=== PATIENT | female | born 1960 | race Caucasian/White ===

== ENCOUNTER 2022-02-20 14:59 | Outpatient (CLI) | payer OTHER, SELFPAY ==
--- NOTE | 2022-02-20 15:00 | CRLHL7_ITS ---
For Patients: As a result of the Cures Act, medical imaging exams and procedure reports are released immediately into your electronic medical record. You may view this report before your referring provider. If you have questions, please contact your health care provider. BILATERAL CAROTID ULTRASOUND 02/20/2022 CLINICAL HISTORY: Hyperlipidemia, hypertension, smoking. TECHNIQUE: The carotid circulations and the vertebral arteries in the neck were examined with gomez-scale ultrasound, color-flow and Doppler spectral analysis. Degrees of stenosis were determined using SRU 2002 Consensus Panel Criteria. COMPARISON: Carotid ultrasound 11/01/2020. FINDINGS: Right carotid: Atherosclerotic plaque in the distal common carotid artery and origins of the internal and external carotid arteries and carotid bulb. Elevated peak systolic velocity in the proximal right ICA measuring 232.4 cm/second. Antegrade flow in the right vertebral artery. The right ICA/CCA ratio is 1.6. Mild tardus parvus wave waveform in the proximal ICA with otherwise normal arterial waveforms. Extensive calcified plaque at the origin of the left internal carotid artery with calcification in the carotid bulb also. Peak systolic velocity in the left mid internal carotid artery is 143.5 cm/second. The ICA/CCA ratio is 1.1. Antegrade flow in the vertebral artery. Normal waveforms. PEAK SYSTOLIC VELOCITY RIGHT: Distal CCA: 143.8 Proximal ICA: 232.4 Mid-ICA: 186.5 Distal ICA: 98.4 ICA/CCA Ratio: 1.6 Vertebral artery: 72.3, antegrade LEFT: RIGHT: Distal CCA: 135.6 Proximal ICA: 123.8 Mid-ICA: 143.5 Distal ICA: 72.4 ICA/CCA Ratio: 1.1 Vertebral artery: 26.3, antegrade IMPRESSION: 1. Right carotid artery with diffuse calcified plaque. The degree of stenosis in the right internal carotid artery is greater than 70 percent. 2. Left carotid artery with extensive plaque at the origin of the left internal carotid artery without flow-limiting stenosis. The degree of stenosis in the left internal carotid artery is approximately between 50-69 percent. Lukas Miller M.D. Diagnostic/Musculoskeletal Radiologist [email or web address] Transcribed: 9:37 am DW/Dictated by: Lukas Miller MD @ 02/23/2022 8:40:00 AM (Electronically Signed)
== END 2022-02-20 15:00 | disposition home or self-care (01) ==
PROVIDERS: PCP Internal Medicine; Visit Provider Surgery Vascular Surgery
DX: I65.23 Occlusion and stenosis of bilateral carotid arteries (principal)
CPT/HCPCS: 93880

== ENCOUNTER 2022-03-11 09:38 | Outpatient (CLI) | payer OTHER, SELFPAY ==
--- NOTE | 2022-03-11 10:00 | CRLHL7_ITS ---
For Patients: As a result of the Century Cures Act, medical imaging exams and procedure reports are released immediately into your electronic medical record. You may view this report before your referring provider. If you have questions, please contact your health care provider. Indication: FOLLOW UP PULMONARY NODULE Technique: Noncontrast CT chest. Please note that all CT scans at this facility use dose modulation, iterative reconstruction, and/or weight-based dosing when appropriate to reduce radiation dose to as low as reasonably achievable. Comparison: Chest x-ray 01/30/2022. CT 09/14/2016. Findings: Stable calcified granuloma posterior segment right upper lobe measuring 1.1 cm. Calcified right hilar lymph nodes and calcified splenic granulomas related to chronic granulomatous disease. Postop changes cholecystectomy. Dense vascular calcifications. No suspicious lymph nodes in the mediastinum, marv or axilla. No fracture. Stable mild calcification within the left thyroid gland. COPD/emphysema. Cluster of nodules located within the inferior aspect of the right upper lobe with several nodules measuring up to 4 millimeters. This area is new compared to the prior study. Impression: Stable calcified nodule right upper lobe. Interval development of a cluster of nodules within the right lower lobe at the inferior aspect. The largest nodule measures [address]imeters[address] Follow-up CT in 6-12 months recommended. Please note that all CT scans at this facility use dose modulation, iterative reconstruction, and/or weight-based dosing when appropriate to reduce radiation dose to as low as reasonably achievable. Dictated by Isai Martell MD @ 03/11/2022 11:36:02 AM (Electronically Signed)
== END 2022-03-11 09:39 | disposition home or self-care (01) ==
LOC: CT 09:38
PROVIDERS: PCP Internal Medicine; Visit Provider Internal Medicine
DX: R91.1 Solitary pulmonary nodule (principal); R91.8 Other nonspecific abnormal finding of lung field
CPT/HCPCS: 71250

== ENCOUNTER 2022-07-03 12:20 | Outpatient (CLI) | payer OTHER, SELFPAY ==
[2022-07-03 22:08] LABS: Albumin* 4.6 g/dL (3.3-5.0); Chloride* 105 mmol/L (96-114)
[2022-07-03 22:09] LABS: Potassium* 3.9 mmol/L (3.6-5.1); Sodium* 141 mmol/L (135-149)
[2022-07-03 22:11] LABS: Carbon Dioxide* 30 mmol/L (20-32); Cholesterol* 160 mg/dL (90-199)
[2022-07-03 22:12] LABS: Alanine Aminotransferase* 15 U/L (4-35); Alkaline Phosphatase* 75 U/L (40-150); Aspartate Amino Transferase* 22 U/L (12-35); Bilirubin Total* 0.5 mg/dL (0.1-1.5); Blood Urea Nitrogen* 16 mg/dL (7-30); Calcium* 9.5 mg/dL (8.4-10.6); Creatinine* 0.6 mg/dL (0.5-1.5); Estimated Glomerular Filt Rate 100 ml/min; Glucose* 121 mg/dL (60-115); Total Protein* 7.2 g/dL (6.0-8.3); Triglycerides* 130 mg/dL (40-149)
[2022-07-03 22:13] LABS: HDL Cholesterol* 64 mg/dL (>=50); LDL Cholesterol Calculated 70 mg/dL (<100)
[2022-07-03 22:48] LABS: HIV 1/2/P24 Combo Screen* Negative (Negative)
[2022-07-03 22:55] LABS: Hepatitis C Virus Antibody* Negative (Negative)
[2022-07-05 18:33] LABS: Rapid Plasma Reagin (RPR) Non Reactive (Non Reactive)
== END 2022-07-03 12:21 | disposition home or self-care (01) ==
PROVIDERS: PCP Family Medicine; Visit Provider Family Medicine
DX: Z00.00 Encounter for general adult medical examination without abnormal findings (principal); I10 Essential (primary) hypertension; E78.5 Hyperlipidemia, unspecified; R53.83 Other fatigue; N95.1 Menopausal and female climacteric states; Z11.59 Encounter for screening for other viral diseases; Z11.3 Encounter for screening for infections with a predominantly sexual mode of transmission
CPT/HCPCS: 80053; 80061; 84443; 86592; 86703; 86803

== ENCOUNTER 2022-08-05 07:04 | Outpatient (CLI) | payer OTHER, SELFPAY ==
--- NOTE | 2022-08-05 07:15 | CRLHL7_ITS ---
For Patients: As a result of the Century Cures Act, medical imaging exams and procedure reports are released immediately into your electronic medical record. You may view this report before your referring provider. If you have questions, please contact your health care provider. Indication: Lumbar spine pain. Technique: Multiplanar, multisequence MRI of the lumbar spine was performed without intravenous contrast. Comparison: Lumbar spine radiographs 07/02/2022. Lumbar spine MRI 10/10/2018. Findings: There are 5 lumbar type vertebral segments identified. The vertebral body heights are maintained without evidence of fracture. There is no discrete T1 hypointense marrow infiltrating process. The conus medullaris terminates at L1, normal. Cauda equina appears unremarkable. T12-L1: No spinal canal or neural foraminal stenosis. L1-2: No spinal canal or neural foraminal stenosis. L2-3: Mild disc height loss and desiccation. Disc bulge with minimal spinal canal narrowing. Mild neural foraminal narrowing secondary to disc bulge and facet hypertrophy. [id number] facet arthropathy. Stable. L3-4: Mild disc height loss and desiccation. Disc bulge coupled with facet hypertrophy resulting in mild spinal canal narrowing. Mild to moderate right and mild left neural foraminal narrowing. Moderate facet arthropathy. Slightly progressed. L4-5: Mild disc height loss and desiccation. Disc bulge coupled with ligamentum flavum thickening and facet hypertrophy resulting in mild spinal canal narrowing. Moderate to severe neural foraminal narrowing secondary to disc bulge and facet hypertrophy. Potential impingement of the exiting L4 nerves. Severe facet arthropathy. Stable. L5-S1: Mild disc desiccation. Disc bulge with minimal spinal canal narrowing. There is a new superimposed left foraminal disc protrusion which potentially impinges the exiting left L5 nerve. Mild right neural foraminal narrowing. Mild facet arthropathy. The visualized sacroiliac joints appear patent. Scattered renal cysts. Impression: 1. At L5-S1, new left foraminal disc protrusion potentially impinging the exiting left L5 nerve. 2. At L4-5, stable mild spinal canal with moderate to severe neural foraminal narrowing and potential impingement of the exiting L4 nerves. 3. At L3-4, slightly progressed degenerative change with mild spinal canal, mild to moderate right and mild left neural foraminal narrowing. 4. Milder spondylosis at the remaining lumbar levels. Dictated by Virgilio Yi MD @ 08/05/2022 2:54:09 PM (Electronically Signed)
--- NOTE | 2022-08-05 08:30 | CRLHL7_ITS ---
For Patients: As a result of the Century Cures Act, medical imaging exams and procedure reports are released immediately into your electronic medical record. You may view this report before your referring provider. If you have questions, please contact your health care provider. Indication: PAIN OF LUMBAR SPINE Technique: Noncontrast CT chest Please note that all CT scans at this facility use dose modulation, iterative reconstruction, and/or weight-based dosing when appropriate to reduce radiation dose to as low as reasonably achievable. Comparison: 03/11/2022 Findings: Incidental calcification within the left thyroid lobe noted. Atherosclerotic disease. No mediastinal or hilar adenopathy. Calcifications in the coronary arteries. No axillary adenopathy. Calcified right hilar lymph nodes. Gallbladder absent. Calcified splenic granulomas. No hiatal hernia. No pleural effusion. Calcified nodule within the right upper lobe posteriorly is unchanged. COPD/emphysema. Decreased conspicuity of reticulonodular densities within the periphery of the right lung laterally. Left lung is relatively clear. No fracture. Impression: Decreased conspicuity of the reticulonodular densities within the periphery of the right lung laterally representing residual of prior inflammatory process. COPD/emphysema. Old granulomatous disease. No adenopathy. Yearly screening CT chest exams suggested. Please note that all CT scans at this facility use dose modulation, iterative reconstruction, and/or weight-based dosing when appropriate to reduce radiation dose to as low as reasonably achievable. Dictated by Isai Martell MD @ 08/06/2022 10:50:02 AM (Electronically Signed)
== END 2022-08-05 07:05 | disposition home or self-care (01) ==
PROVIDERS: PCP Family Medicine; Visit Provider Orthopaedic Surgery Sports Medicine
DX: M54.50 Low back pain, unspecified (principal); M51.27 Other intervertebral disc displacement, lumbosacral region; M51.26 Other intervertebral disc displacement, lumbar region; M43.06 Spondylolysis, lumbar region
CPT/HCPCS: 71250; 72148

== ENCOUNTER 2022-10-16 08:43 | Outpatient (CLI) | payer OTHER, SELFPAY ==
--- NOTE | 2022-10-16 09:00 | CRLHL7_ITS ---
For Patients: As a result of the Century Cures Act, medical imaging exams and procedure reports are released immediately into your electronic medical record. You may view this report before your referring provider. If you have questions, please contact your health care provider. INDICATION: Lumbar fusion. COMPARISON: 08/05/2022. TECHNIQUE: Noncontrast CT lumbar spine. FINDINGS: Normal alignment. No fractures. No vertebral body loss of height. No spondylolisthesis. Postoperative changes of diskectomy interbody fusion L4-5 and L5-S1. Posterior richa transpedicular screw fixation L4-S1. Hardware appears well seated. T12-L1: Small right paracentral disc protrusion a disc osteophyte complex. No spinal canal or neural foraminal narrowing. L1-2: No spinal canal neural foraminal narrowing. L2-3: No narrowing of spinal canal. No neural foraminal narrowing. L3-4: Posterior disc bulge. Mild narrowing of spinal canal. Facet arthropathy results in mild to moderate narrowing of bilateral foramina. Mild facet arthropathy. L4-5: Postoperative changes. Spinal canal is decompressed by laminectomy. Allowing for artifact, there is mild narrowing of bilateral foramina. L5-S1: Postoperative changes. Spinal canal is decompressed by laminectomy. No impingement of the traversing S1 nerve roots. No neural foraminal narrowing. Degenerative changes of visualized SI joints. Scattered vascular calcifications. IMPRESSION: 1. Normal alignment. No fractures. 2. Interval postop changes L4-5 and L5-S1. Posterior fusion hardware L4-S1. Hardware appears well seated. 3. At L3-4, mild narrowing of the spinal canal. Mild to moderate narrowing of the bilateral foramina 4. At L4-5, mild narrowing of the bilateral neural foramina 5. Lumbar spondylosis Please note that all CT scans at this facility use dose modulation, iterative reconstruction, and/or weight-based dosing when appropriate to reduce radiation dose to as low as reasonably achievable. Dictated by Dandy Almodovar MD @ 10/16/2022 12:50:53 PM (Electronically Signed)
== END 2022-10-16 08:44 | disposition home or self-care (01) ==
PROVIDERS: PCP Family Medicine; Visit Provider Specialist
DX: Z98.1 Arthrodesis status (principal); M47.896 Other spondylosis, lumbar region; M51.26 Other intervertebral disc displacement, lumbar region
CPT/HCPCS: 72131

== ENCOUNTER 2023-01-29 09:41 | Outpatient (CLI) | payer MEDICARE, BC, SELFPAY ==
--- OUTSIDE RECORDS SUMMARY | 2023-01-29 09:50 | XMS_ITS | Continuity of Care Document ---
Author Name Unknown Organization [facility] Address [address] [place] [address] Phone Care Team Providers Care Chemistry Specialist Name Role Phone Shari MCCLELLAND, Lisa Unavailable Unavailable Allergies, Adverse Reactions, Alerts Substance Reaction Status Criticality No Known Allergies Active No Inform ation Medications Medication Instructions Dosage Effective Dates (start - stop) Status Comments gabapentin 300 mg capsule take 1 capsule by oral route 4 times every day 300 MG - Active hydrocodone 5 mg-acetaminophen 325 mg tablet take 1 Tablet by ORAL route every 10 hours as needed for pain 1 Tablet - Active hydrocodone 5 mg-acetaminophen 325 mg tablet take 1 Tablet by ORAL route every 8 hours as needed for pain - Active hydrocodone 5 mg-acetaminophen 325 mg tablet take 1 Tablet by ORAL route every 12 hours as needed for pain 1 Tablet - Active Max 2 tablets per day for one week supply. Valium 5 mg tablet take 1 tablet by ORAL route 30 minutes prior to the injection - Active oxycodone 5 mg tablet take 1Tablet by ORAL route every daily as needed for pain. No further refills - Active oxycodone 5 mg tablet take 1 Tablet by ORAL route every 8 hours as needed for pain for G89.18. - Active gabapentin 300 mg capsule take 1 capsule by oral route 3 times every day 300 MG - Active methocarbamol 500 mg tablet take 1 Tablet by ORAL route every 6 hours PRN muscle spasms - Active hydrocodone 5 mg-acetaminophen 325 mg tablet take 1 Tablet by ORAL route every 6 hours as needed for pain for G89.18 - Active oxycodone 5 mg tablet take 1 - 2 tabs by mouth every 4-6 hours as needed for post op (G89.18) - Active Written on behalf of Dr. Lisa Mccarthy ALIVE WOM[employer]'S [employer]ERGY (unknown strength) Not Available - Active ESTROGEN-METHYLTEST OSTERONE (unknown strength) Not Available - Active IBUPROFEN (unknown strength) Not Available - Active Procedures Procedure Date Postop Followup Visit X-Ray Exam Lower Spine 2-3 Views 2022 TLIF - Includes PSF at the same level - PA TLIF - Additional Level(s) Includes PSF at the same level - PA RICKETTS FACETC/FRMT ARTHRD LUM 1 RICKETTS FACTC/FRMT ARTHRD LUM EA Posterior Instrumentation, 3-6 Segments - PA PEEK/ Cage/ Implant, For Interbody Fusio n - PA Autograft, From Same Incision Pa Assist TLIF - Includes PSF at the same level Ma TLIF - Additional Level(s) Includes PSF at the same level RICKETTS FACETC/FRMT ARTHRD LUM 1 RICKETTS FACTC/FRMT ARTHRD LUM EA Posterior Instrumentation, 3-6 Segments PEEK/ Cage/ Implant, For Interbody Fusio n Allograft, Morcelized, and/or BMP Autograft, From Same Incision Office/Outpatient Visit,New, Mod 2022 Office/Outpatient Visit,Est, Mod 2015 Postop Followup Visit Postop Followup Visit Remove Lumbar Spine Lamina, 1 Seg Remove Added Spine Lamina, 1 Seg 2015 Pa Assist Remove Lumbar Spine Lamina, 1 Seg Pa Assist Remove Added Spine Lamina, 1 S eg Office/Outpatient Visit,New, Mod 2015 X-Ray Exam Of Lower Spine, Bending Advance Directives Directive Yes / No Effective Date File Name No Information Encounters Encounter Description Practice Location Reason(s) For Visit Diagnoses Date Provider Providers Copied on Encounter [facility], [address], [place], [place], [id number] , [place] tel:[phone] [facility] No Information 3 Mehbod Amir. [facility], [address] [place] [address], [place], [place], [address] , [place]. tel: [phone] [facility], [address], [place], [place], [address] , [place] tel:[phone] [facility] No Information 3 Mehbod Amir. [facility], [address] [place] [address], [place], [address] , [place]. tel: [phone] [facility], [address], [place], [place], [address] , [place] tel:[phone] [facility] No Information 3 Mehbod Amir. [facility], [address] [place] [address], [place], [place], [id number] , [place]. tel: [phone] [facility], [address], [place], [place], [address] , [place] tel:[phone] [facility] No Information 3 Eckroth Jorge. [address] [place] [address], [place], [address] , [place]. tel: [phone] [facility], [address], [place], [address] , [place] tel: [phone] [facility] No Information 3 Mehbod Amir. [facility], [address] [place] [address], [place], [address] , [place]. tel: [phone] [facility], [address], [place], [address] , [place] tel:[phone] [facility] No Information Sep- 3 Mehbod Amir. [facility], [address] [place] [address] [address], [place], [place], [address] , [place]. tel: [phone] Referring Provider: Rudi Mcneil, [facility] & [address], [place], [address]. tel:[phone] [facility], [address], [place], [place], [address] , [place] tel:[phone] [facility] No Information Sep-06 30- 3 Mehbod Amir. [facility], [address] [place] [address] [address], [place], [place], [address] , [place]. tel: [phone] [facility], [address], [place], [place], [address] , [place] tel:[phone] [facility] No Information Sep-0 3 Mehbod Amir. [facility], [address] [place] [address] [address], [place], [place], [address] , [place]. tel: [phone] [facility], [address], [place], [place], [address] , [place] tel: [phone] [facility] No Information Aug-3 - 3 Mehbod Amir. [facility], [address] [place] [address] [address], [place], [place], [address] , [place]. tel: [phone] [facility], [address], [place], [place], [address] , [place] tel: [phone] [facility] No Information Aug-2 3 Mehbod Amir. [facility], [address] [place] [address] [address], [place], [place], [address] , [place]. tel: [phone] [facility], [address], [place], [place], [address] , [place] tel: [phone] [facility] No Information Mar-2 2- 3 Mehbod Amir. [facility], [address], [place], [place], [address] , [place]. tel: [phone] Referring Provider: Primary Care Doctor No. [facility], [address], [place], [place], [address] , [place] tel: [phone] [facility] No Information 3 Brown Patel. [address], [place], [place], [address] , [place]. tel: [phone] Referring Provider: Rudi Mcneil, [facility] & [address], [address]. tel:[phone] [facility], [address], [place], [place], [address] , [place] tel: [phone] [facility] No Information 3 Mehbod Amir. [facility] [place], [address], [place], [place], [address] , [place]. tel: [phone] Referring Provider: Rudi Mcneil, [facility] & [address], [address]. tel:[phone] Office/Outpat ient Visit,New, Mod [facility], [address], [place], [place], [address] , [place] tel: [phone] [facility] Spinal stenosis, lumbar region with neurogenic claudication 3 Mehbod Amir. [facility], [address], [place], [place], [address] , [place]. tel: [phone] Referring Provider: Rudi Mcneil, [facility] & [address], [address]. [phone] Office/Outpat ient Visit,Est, Mod [facility], [address], [place], [place], [address] , [place] tel: [phone] [facility] Spinal stenosis, lumbar region 201 6 Mehbod Amir. [facility], [address], [place], [place], [address] , [place]. tel: [phone] Referring Provider: Lisa Mccartyh, [facility] [address], [place], [address]. tel:[phone] [facility], [address], [facility] [place], [address] , [place] tel: [phone] [facility] Spinal stenosis, lumbar region 0-201 6 Eckroth Jorge. [address] [place] [address] [address], [place], [place], [address] , [place]. tel: [phone] Referring Provider: iLsa Mccarthy, [facility] [address], [place], [address]. tel:[phone] [facility], [address], [place], [place], [address] , [place] tel: [phone] [facility] Other intervertebral disc degeneration, thoracolumbar regionSpinal stenosis, lumbar region 2 6 Mehbod Amir. [facility] [place], [address] [place] [address], [place], [place], [address] , [place]. tel: [phone] Referring Provider: Lisa Mccarthy, [facility] [place] [address], [place], [address]. tel:[phone] [facility], [address], [facility] [place], [address] , [place] tel: [phone] [facility] No Information 6 Mehbod Amir. [facility] [place], [address] [place] [address] [address], [place], [place], [address] , [place]. tel: [phone] Referring Provider: Lisa Mccarthy, [facility] [address], [place], [address]. tel:[phone] Office/Outpat ient Visit,New, Mod [facility], [address], [place], [place], [address] , [place] tel:[phone] [facility] Other intervertebral disc degeneration, thoracolumbar regionSpinal stenosis, lumbar region 6 Shari Gonzalez. [facility], [address], [place], [place], [address] , [place]. tel:[phone] Referring Provider: Jewel Gerard, [address], [address]. tel:[phone] Family History Family Member Type Diagnosis Age At Onset No Information Payers Payer name Insurance type Covered republican ID Authoriza tion(s) No Information Social History Type Description Quantity Date Captured Comments Sex Female Smoking Status No Information Chief Complaint And Reason For Visit No Information Reason For Referral Reason For Referral No Information Plan Of Treatment Date Type Action Status Appointment Rossy Salmon BOOKED Appointment Rossy Salmon BOOKED Appointment Rossy Salmon BOOKED Appointment Rossy Salmon BOOKED Future Order: Radiology Order F/ E Lumbar (F/ELumb), Ordered on: Ordered History Of Present Illness Encounter Date Complaint History Of Prese nt Illness No Information Functional Status Date Functional Assessmen t No Information Instructions Date Instruction Additional Infor mation Instructed to return to General Practitioner timeframe: 1 Month. Related to Unspecified Essential Hypertension Blood Pressure Management Relate d to Unspecified Essential Hypertension Weight management: I nstructed to return to General Practitioner timeframe: 1 Month. Related to Overweight Weight Management Education Rela gabi to Overweight Assessments Type Assessment Date No Information Patient Care Teams Name Effective Dates (start - stop) Status Members No Information
--- NOTE | 2023-01-29 10:00 | CRLHL7_ITS ---
For Patients: As a result of the Cures Act, medical imaging exams and procedure reports are released immediately into your electronic medical record. You may view this report before your referring provider. If you have questions, please contact your health care provider. Indication: assess healing of spine fusion surgery Technique: Lumbar spine 2 view Comparison: 07/02/2022 IMPRESSION: Posterior and interbody fusion L4-S1. Hardware intact. Calcifications in the aorta. No fracture Dictated by Isai Martell MD @ 01/29/2023 10:42:27 AM (Electronically Signed)
== END 2023-01-29 09:42 | disposition home or self-care (01) ==
PROVIDERS: PCP Family Medicine; Visit Provider Specialist
DX: M43.20 Fusion of spine, site unspecified (principal)
CPT/HCPCS: 72100

== ENCOUNTER 2023-02-02 08:53 | Outpatient (CLI) | payer MEDICARE, BC, SELFPAY ==
--- OUTSIDE RECORDS SUMMARY | 2023-02-03 14:57 | XMS_ITS | Continuity of Care Document ---
Author Name Unknown Organization [facility] Address [address] [place] [address] Phone Care Team Providers Care Electronics Research Engineer Name Role Phone Shari MCCLELLAND, Lisa Unavailable [...] Not Available - Active Procedures Procedure Date OFFICE/OUTPATIENT VISIT EST Phone HOLD Postop Followup Visit X-Ray Exam Lower Spine [...] Added Spine Lamina, 1 S eg Office/Outpatient Visit,[facility] 2015 X-Ray Exam Of Lower Spine, Bending Advance Directives Directive Yes / No Effective Date File Name No Information Encounters Encounter Description Practice Location Reason(s) For Visit Diagnoses Date Provider Providers Copied on Encounter [facility], [address], [place], [address] , [place] tel: [phone] [facility] [place] No Information 3 Mehbod Amir. [facility], [address] [place] [address] [address], [place], [place], [address] , [place]. tel: [phone] OFFICE/OUTPAT IENT VISIT EST Phone [facility], [address], [place], [address] , [place] tel: [facility] No Information 3 Mehbod Amir. [facility], [address] [place] [address] [address], [place], [place], [address] , [place]. tel: [phone] Referring Provider: Rudi Mcneil, [facility] & [address], [place], [address]. tel:[phone] [facility], [address], [place], [address] , [place] tel: [phone] [facility] [place] No Information 3 Mehbod Amir. [facility], [address] [place] [address] [address], [place], [address] , [place]. tel: [phone] [facility], [address], [place], [address] , [place] tel: [phone] [facility] [employer] [facility] [place] No Information 3 Mehbod Amir. [facility], [address] [place] [address] [address], [place], [address] , [place]. tel: [phone] [facility], [address], [place], [address] , [place] tel: [phone] [facility] [place] No Information October-0 3- 3 Eckroth Jorge. [address], [place], [address] , [place]. tel: [phone] [facility], [address], [place], [address] , [place] tel:[phone] [facility] [place] No Information Sep-2 3 Mehbod Amir. [facility], [address] [place] [address] 600, [place], [address] , [place]. tel: [phone] [facility], [address], [place], [address] , [place] tel: [phone] [facility] [place] No Information Sep- 3 Mehbod Amir. [facility], [address] [place] [address] 600, [place], [address] , [place]. tel: [phone] Referring Provider: Rudi Mcneil, [facility] & [address], [address]. tel:[phone] [facility], [address], [place], [address] , [place] tel: [phone] [facility] [place] No Information Sep-06 30- 3 Mehbod Amir. [facility], [address] [place] [address] 600, [place], [address] , [place]. tel: [phone] [facility], [address], [place], [address] , [place] tel: [phone] [facility] [place] No Information Sep-0 - 3 Mehbod Amir. [facility], [address] [place] [address] [address], [place], [address] , [place]. tel: [phone] [facility], [address], [place], [address] , [place] tel: [phone] [facility] [place] No Information - 3 Mehbod Amir. [facility], [address] [place] [address] 600, [place], [address] , [place]. tel: [phone] [facility], [address], [place], [address] , [place] tel: [phone] [facility] [place] No Information 3 Mehbod Amir. [facility], [address], [place], [address] , [place]. tel: [phone] [facility], [address], [place], [address] , [place] tel: [phone] [facility] [place] No Information 3 Mehbod Amir. [facility], [address], [place], [address] , [place]. tel: [phone] Referring Provider: Primary Care Doctor No. [facility], [address], [place], [address] , [place] tel: [phone] [facility] No Information 3 Brown Patel. [address], [place], [address] , [place]. tel: [phone] Referring Provider: Rudi Mcneil, [facility] & [address], [address]. tel:[phone] [facility], [address], [place], [address] , [place] tel: [phone] [facility] No Information 3 Mehbod Amir. [facility], [address], [place], [address] , [place]. tel: [phone] Referring Provider: Rudi Mcneil, [facility] & [address], [address]. tel:[phone] Office/Outpat ient Visit,New, Mod [facility], [address], [place], [address] , [place] tel: [phone] [facility] [place] Spinal stenosis, lumbar region with neurogenic claudication 9 3 Mehbod Amir. [facility], [address] [place] [address] 600, [place], [place], [address] , [place]. tel: [phone] Referring Provider: Rudi Mcneil, [facility] & [address], [place], [address]. tel:[phone] Office/Outpat ient Visit,Est, Mod [facility], [address], [place], [place], [address] , [place] tel: [phone] [facility] [place] Spinal stenosis, lumbar region 6 Mehbod Amir. [facility], [address] [place] [address] 600, [place], [place], [address] , [place]. tel: [phone] Referring Provider: Lisa Mccarthy, [address] [address], [place], [address]. tel:[phone] [facility], [address], [place], [place], [address] , [place] tel: [phone] [facility] [place] Spinal stenosis, lumbar region 0201 6 Brown Patel. [address] [place] [address] 600, [place], [place], [address] , [place]. tel: [phone] Referring Provider: Lisa Mccarthy, [facility] [address] [address], [place], [address]. tel:[phone] [facility], [address], [place], [place], [address] , [place] tel: [phone] [facility] [place] Other intervertebral disc degeneration, thoracolumbar regionSpinal stenosis, lumbar region 201 6 Mehbod Amir. [facility], [address] [place] [address] 600, [place], [place], [address] , [place]. tel: [phone] Referring Provider: Lisa Mccarthy, [facility] [address] [address], [place], [address]. tel:[phone] [facility], [address], [place], [place], [address] , [place] tel:[phone] [facility] No Information 6 Mehbod CrystalrNahomy [facility], [address], [place], [place], [address] , [place]. tel:[phone] Referring Provider: Lisa Mccarthy, [facility] [address], [place], [address]. [phone] Office/Outpat ient Visit,New, [facility], [address], [place], [place], [address] , [place] tel:[phone] [facility] - [facility] Other intervertebral disc degeneration, thoracolumbar regionSpinal stenosis, lumbar region 6 Mehbod [facility], [address], [place], [place], [address] , [place]. tel:[phone] Referring Provider: Jewel Gerard, [address], [address]. tel:[phone] Family History Family Member Type Diagnosis Age At Onset No Information Payers Payer name Insurance type Covered green party ID Authoriza tion(s) Medicare MB [id number] [facility] [id number] [facility] [id number] Social History Type Description Quantity Date Captured [...] No Information Instructions Date Instruction Additional Infor trevor Instructed to return to General Practitioner timeframe: [...]
== END 2023-02-02 08:54 | disposition home or self-care (01) ==
LOC: NFLDREF 02-03 14:55
PROVIDERS: PCP Family Medicine; Referring Provider Family Medicine; Visit Provider Family Medicine
DX: R82.998 Other abnormal findings in urine (principal); Z01.818 Encounter for other preprocedural examination
CPT/HCPCS: 87086; 87186

== ENCOUNTER 2023-02-16 10:49 | Outpatient (CLI) | payer MEDICARE, BC, SELFPAY ==
--- OUTSIDE RECORDS SUMMARY | 2023-02-16 17:42 | XMS_ITS | Continuity of Care Document ---
Author Name Unknown Organization [facility] Address [address] [place] [address] Phone Care Team Providers Care Directional Driller Name Role Phone Shari MCCLELLAND, Lisa Unavailable Unavailable Allergies, Adverse Reactions, Alerts Substance Reaction Status Criticality No Known Allergies Active No Inform ation Medications Medication Instructions Dosage Effective Dates (start - stop) Status Comments oxycodone 5 mg tablet take 1 - 2 Tablet by ORAL route every 6-8 hours as needed for pain - Active gabapentin 300 mg capsule take 1 capsule by oral route 3 times every day 300 MG - Active gabapentin 300 mg capsule take [...] Not Available - Active Procedures Procedure Date Physician Telephone Evaluation 5-10 Min Postop Followup Visit X-Ray Exam Lower Spine [...] - Includes PSF at the same level Nv TLIF - Additional Level(s) Includes PSF at [...] on Encounter [facility], [address], [place], [address] , [place] tel: [phone] [facility] [place] No Information 3 Mehbod Amir. [facility], [address] [place] [address] [address], [facility] [place], [address] , [place]. tel: [phone] [facility], [address], [place], [address] , [place] tel: [phone] [facility] [place] No Information 3 Mehbod Amir. [facility], [address] [place] [address] [address], [facility] [place], [address] , [place]. tel: [phone] Physician Telephone Evaluation 5-10 Min [facility], [address], [facility] [place], [address] , [place] tel: [phone] [facility] No Information [address] [facility], [address] [place] [address] [address], [facility] [place], [address] , [place]. tel: [phone] Referring Provider: Rudi Mcneil, [facility] & [address], [place], [address]. tel:[phone] [facility], [address], [place], [address] , [place] tel: [phone] [employer] [facility] [facility] [place] No Information 3 Mehbod Amir. [facility], [address] [place] [address] [address], [place], [address] , [place]. tel: [phone] [facility], [address], [place], [address] , [place] tel: [phone] [facility] [place] No Information 0 - [address] [facility], [address], [place], [address] , [place]. tel: [phone] [facility], [address], [place], [address] , [place] tel:[phone] [facility] [place] No Information 0 - 3 Eckroth Jorge. [address] [place] [address] 600, [place], [address] , [place]. tel: [phone] [facility], [address], [place], [address] , [place] tel:[phone] [facility] [place] No Information [address] [facility] [place], [address], [place], [address] , [place]. tel: [phone] [facility], [address], [place], [address] , [place] tel: [phone] [facility] [place] No Information 3 Mehbod Amir. [facility], [address], [place], [address] , [place]. tel: [phone] Referring Provider: Rudi Mcneil, [facility] [address] [place] [address], [address]. tel:[phone] [facility], [address], [place], [address] , [place] tel: [phone] [facility] [place] No Information [address] [facility], [address], [place], [address] , [place]. tel: [phone] [facility], [address], [place], [address] , [place] tel: [facility] [place] No Information Sep-0 [address] [facility], [address], [place], [address] , [place]. tel: [phone] [facility], [address], [place], [address] , [place] tel:[phone] [facility] [place] No Information Aug-3 - [address] [facility], [address], [place], [place], [address] , [place]. tel: [phone] [facility], [address], [place], [address] , [place] tel:[phone] [facility] [place] No Information Aug- 3 Mehbod Amir. [facility], [address] [place] [address] 600, [place], [address] , [place]. tel:[phone] [facility], [address], [place], [address] , [place] tel:[phone] [facility] [place] No Information Aug- [address] [facility] [place], [address], [place], [address] , [place]. tel: [phone] Referring Provider: Primary Care Doctor No. [facility], [address], [place], [place], [address] , [place] tel:[phone] [facility] No Information 3 Eckroth Jorge. [address], [place], [place], [address] , [place]. tel: [phone] Referring Provider: Rudi Mcneil, [facility] & [address], [address]. tel:[phone] [facility], [address], [place], [address] , [place] tel: [phone] [facility] No Information [address] [facility], [address] [place] [address] 600, [place], [place], [address] , [place]. tel: [phone] Referring Provider: Rudi Mcneil, [facility] & [address], [address]. tel:[phone] Office/Outpat ient Visit,New, Mod [facility], [address], [place], [place], [address] , [place] tel: [phone] [facility] [place] Spinal stenosis, lumbar region with neurogenic claudication [address] [facility], [address] [place] [address] 600, [place], [place], [address] , [place]. tel: [phone] Referring Provider: Rudi Mcneil, [facility] & [address], [address]. [phone] Office/Outpat ient Visit,Est, Mod [facility], [address], [place], [place], [address] , [place] tel: [phone] [facility] [place] Spinal stenosis, lumbar region [address] [facility], [address] [place] [address] 600, [place], [place], [address] , [place]. tel: [phone] Referring Provider: Lisa Mccarthy, [facility] [address] [place] [address], [place], [address]. tel:[phone] [facility], [address], [place], [place], [address] , [place] tel: [phone] [facility] [place] Spinal stenosis, lumbar region 0-201 6 Brown Patel. [address] [place] [address] 600, [place], [place], [address] , [place]. tel: [phone] Referring Provider: Lisa Mccarthy, [facility] [address] [place] [address], [place], [address]. tel:[phone] [facility], [address], [place], [place], [address] , [place] tel: [phone] [facility] [place] Other intervertebral disc degeneration, thoracolumbar regionSpinal stenosis, lumbar region [address] [facility], [address], [place], [place], [address] , [place]. tel: [phone] Referring Provider: Lisa Mccarthy, [facility] [address], [place], [address]. tel:[phone] [facility], [address], [place], [place], [address] , [place] tel: [phone] [facility] No Information 6 Mehbod Amir. [facility], [address], [place], [place], [address] , [place]. tel: [phone] Referring Provider: Lisa Mccarthy, [facility] [address] Suite [facility], [place], [address]. tel:[phone] Office/Outpat ient Visit,New, Mod [facility], [address], [place], [place], [address] , [place] tel: [phone] [facility] [place] Other intervertebral disc degeneration, thoracolumbar regionSpinal stenosis, lumbar region [address] [facility], [address] [place] [address] [address], [place], [place], [address] , [place]. tel:[phone] Referring Provider: Jewel Gerard, [employer] [address], [address]. tel:[phone] Family History Family Member Type Diagnosis Age At Onset No Information Payers Payer name Insurance type Covered green party ID Authorsamraa terence(s) Medicare MB [id number] [facility] [id number] [facility] [id number] Social History Type Description Quantity Date Captured [...] No Information Instructions Date Instruction Additional Infor mattameka Instructed to return to General Practitioner timeframe: [...]
== END 2023-02-16 10:50 | disposition home or self-care (01) ==
LOC: NFLDREF 17:41
PROVIDERS: PCP Family Medicine; Referring Provider Family Medicine; Visit Provider Family Medicine
DX: N39.0 Urinary tract infection, site not specified (principal); G89.18 Other acute postprocedural pain
CPT/HCPCS: 87086

== ENCOUNTER 2023-06-01 06:22 | Outpatient (CLI) | payer MEDICARE, BC, SELFPAY ==
--- OUTSIDE RECORDS SUMMARY | 2023-06-01 06:27 | XMS_ITS | Continuity of Care Document ---
Author Name Unknown Organization [facility] Address [address] [place] [address] Phone Care Team Providers Care Watch Band Assembler Name Role Phone Brown Jorge SMITH Unavailable Allergies, Adverse Reactions, Alerts Substance Reaction Status Criticality No Known Allergies Active No Inform ation Medications Medication Instructions Dosage Effective Dates (start - stop) Status Comments gabapentin 300 mg capsule take 1 capsule by oral route 2 times every day X one week then 1 capsule daily X one week - Active HYDROCODONE -ACETAMINOPHEN 5/325 MG Oral Take one tablet po hs prn - Active hydrocodone 5 mg-acetaminophen 325 mg tablet take 1 Tablet by ORAL route every 12 hours as needed for pain 1 Tablet - Active oxycodone 5 mg tablet take 1 Tablet by ORAL route every 6-8 hours as needed for pain - Active oxycodone 5 mg tablet take [...] tablets per day for one week supply. oxycodone 5 mg tablet take 1Tablet by [...] Not Available - Active Procedures Procedure Date POSTOP FOLLOW-UP VISIT Telephone 2022 Postop Followup Visit PSF, Lumbar - PA PSF - Additional Level(s) - PA Lami, Facetectomy/Foraminotomy, Lumbar ( Stenosis) Reinsertion of Instrumentation - NC PSF, Lumbar PSF - Additional Level(s) Lami, Facetectomy/Foraminotomy, Lumbar ( Stenosis) Reinsertion of Instrumentation Physician Telephone Evaluation 5-10 Min Postop Followup [...] Morcelized, and/or BMP Autograft, From Same Incision 3 Office/Outpatient Visit,New, Mod 2022 Office/Outpatient Visit,Est, Mod [...] on Encounter [facility], [address], [place], [id number] , [place] tel: [phone] [facility] No Information 3 Brown Jorge. [address] [place] [address], [place], [id number] , [place]. [phone] Referring Provider: Rudi Mcneil, [facility] & [address], [place], [address]. tel:[phone] [facility], [address], [place], [id number] , [place] tel: [phone] [employer] No Information Feb-2 3 Mehbod Amir. [facility], [address] [place] [address] [address], [place], [id number] , [place]. tel: [phone] [facility], [address], [place], [id number] , [place] tel: [phone] [facility] Encounter for other specified surgical aftercare Sep- 3 Mehbod Amir. [facility], [address] [place] [address] [address], [place], [id number] , [place]. tel: [phone] Referring Provider: Rudi Mcneil, [facility] & [address], [address]. [phone] [facility], [address], [place], [id number] , [place] tel: [phone] PST [facility] No Information Feb-0 3 Mehbod Amir. [facility], [address] [place] [address] [address], [place], [id number] , [place]. tel: [phone] [facility], [address], [place], [address] , [place] tel: [phone] [facility] No Information Jan- 3 Elder Angulo . [facility], [address] [place] [address] [address], [place], [address], [place]. tel: [phone] Referring Provider: Rudi Mcneil, [facility] & [address], [address]. tel:[phone] [facility], [address], [place], [id number] , [place] tel: [phone] PST [facility] No Information 3 Mehbod Amir. [facility], [address] [place] [address] [address], [place], [id number] , [place]. tel: [phone] [facility], [address], [place], [address] , [place] tel: [phone] [facility] No Information 3 Mehbod Amir. [facility], [address], [place], [id number] , [place]. tel: [phone] Referring Provider: Rudi Mcneil, [facility] & [address], [address]. tel:[phone] [facility], [address], [place], [id number] , [place] tel: [phone] [facility] No Information 3 Mehbod Amir. [facility], [address] [place] [address] [address], [place], [id number] , [place]. tel: [phone] Physician Telephone Evaluation 5-10 Min [facility], [address], [place], [id number] , [place] tel: [phone] [facility] No Information 3 Mehbod Amir. [facility], [address] [place] [address] [address], [place], [id number] , [place]. tel: [phone] Referring Provider: Rudi Mcneil, [facility] & [address], [address]. tel:[phone] [facility], [address], [place], [id number] , [place] tel: [phone] [facility] No Information 3 Mehbod Amir. [facility], [address] [place] [address] [address], [place], [id number] , [place]. tel: [phone] [facility], [address], [place], [id number] , [place] tel: [phone] [facility] No Information 3 Mehbod Amir. [facility], [address] [place] [address] [address], [place], [id number] , [place]. tel: [phone] [facility], [address], [place], [address] , [place] tel:[phone] [facility] No Information 3 Eckroth Jorge. [address], [place], [id number] , [place]. tel: [phone] [facility], [address], [place], [address] , [place] tel:[phone] [facility] No Information 3 Mehbod Amir. [facility], [address] [place] [address] 600, [place], [address] , [place]. tel:[phone] Referring Provider: Rudi Mcneil, [facility] & [address], [address]. tel:[phone] [facility], [address], [place], [address] , [place] tel:[phone] [facility] No Information 3 Mehbod Amir. [facility], [address] [place] [address] 600, [place], [id number] , [place]. tel: [phone] [facility], [address], [place], [address] , [place] tel: [facility] No Information 0 3 Mehbod Amir. [facility], [address], [place], [address] , [place]. tel: [phone] [facility], [address], [place], [address] , [place] tel: [facility] No Information 3 Mehbod Amir. [facility], [address], [place], [address] , [place]. tel: [phone] [facility], [address], [place], [id number] , [place] tel: [facility] No Information 3 Mehbod Amir. [facility], [address] [place] [address], [facility] [place], [id number] , [place]. tel: [phone] [facility], [address], [facility] [place], [id number] , [place] tel: [phone] [facility] No Information 3 Mehbod Amir. [facility], [address], [facility] [place], [id number] , [place]. tel: [phone] Referring Provider: Primary Care Doctor No. [facility], [address], [facility] [place], [id number] , [place] tel: [phone] [facility] No Information 3 Eckroth Jorge. [address] [place] [address], [facility] [place], [address] , [place]. tel: [phone] Referring Provider: Rudi Mcneil, [facility] & [address], [address]. tel:[phone] [facility], [address], [facility] [place], [id number] , [place] tel: [phone] [facility] No Information 3 Mehbod Amir. [facility], [address] [place] [address] [address], [place], [place], [address] , [place]. tel: [phone] [facility] & [address], [address]. tel:[phone] Office/Outpat ient Visit,New, Mod [facility], [address], [facility] [place], [id number] , [place] tel: [phone] [facility] Spinal stenosis, lumbar region with neurogenic claudication Fe 3 Mehbod Amir. [facility], [address], [facility], [place], [id number] , [place]. tel: [phone] Referring Provider: Rudi Mcneil, [facility] [address] [facility], [place], [address]. tel:[phone] Office/Outpat ient Visit,Est, Mod [facility], [address], [place], [place], [id number] , [place] tel: [phone] [facility] Spinal stenosis, lumbar region 2 6 Mehbod AmirNahomy [facility], [address] [place] [address], [place], [place], [address] , [place]. tel: [phone] Referring Provider: Lisa Mccarthy, [facility] [place] [address], [place], [address]. tel:[phone] [facility], [address], [place], [place], [address] , [place] tel: [phone] [facility] Spinal stenosis, lumbar region [phone] Eckroth Jorge. [address] [place] [address], [place], [place], [address] , [place]. tel: [phone] Referring Provider: Lisa Mccarthy, [facility] [place] [address], [place], [address]. tel:[phone] [facility], [address], [place], [place], [address] , [place] tel: [phone] [facility] Other intervertebral disc degeneration, thoracolumbar regionSpinal stenosis, lumbar region 2201 6 Mehbod AmirNahomy [facility], [address], [place], [place], [address] , [place]. tel: [phone] Referring Provider: Lisa Mccarthy, [facility] [address], [place], [address]. tel:[phone] [facility], [address], [place], [place], [address] , [place] tel: [phone] [facility] No Information 3201 6 Mehbod [facility], [address], [place], [place], [address] , [place]. tel:[phone] Referring Provider: Lisa Mccarthy, [facility] [address], [place], [address]. tel:[phone] Office/Outpat ient Visit,New, Mod [facility], [address], [place], [place], [address] , [place] [phone] [facility] Other intervertebral disc degeneration, thoracolumbar regionSpinal stenosis, lumbar region 6 Mehbod [facility], [address], [place], [place], [address] , [place]. [phone] Referring Provider: Jewel Gerard, [facility] [address] [place], [address]. tel:[phone] Family History Family Member Type Diagnosis Age At Onset No Information Payers Payer name Insurance type Covered green party ID Authoriza tion(s) Medicare MB [id number] [facility] [id number] [facility] [id number] Social History Type Description Quantity Date Captured Comments Alcohol Use Details Unknown Caffeine Use Details Unknown Tobacco Use Status Smoking Status No Information Sex Female Chief Complaint And Reason For Visit No Information Reason For Referral Reason For Referral No Information Plan Of Treatment Date Type Action Status Future Order: Radiology Order F/ E Lumbar [...]
--- NOTE | 2023-06-01 08:14 | W.ANESCHARGE ---
Anesthesia Charges Start Date/Time Anesthesia Start Date: 06/01/23 Anesthesia Start Time: 07:35 Stop Date/Time Anesthesia Stop Date: 06/01/23 Anesthesia Stop Time: 08:10
--- NOTE | 2023-06-01 09:05 | W.ANESCHARGE ---
Anesthesia Charges Start Date/Time Anesthesia Start Date: 06/01/23 Anesthesia Start Time: 07:35 Stop Date/Time Anesthesia Stop Date: 06/01/23 Anesthesia Stop Time: 08:10
== END 2023-06-01 06:23 | disposition home or self-care (01) ==
LOC: OP CLINIC 06:25
PROVIDERS: PCP Family Medicine; Visit Provider Surgery
DX: R10.84 Generalized abdominal pain (principal); K63.5 Polyp of colon; K57.30 Diverticulosis of large intestine without perforation or abscess without bleeding
CPT/HCPCS: 00811; 45385; 88305; J2405; J2704

== ENCOUNTER 2023-06-04 04:44 | Emergency (ER) | payer MEDICARE, BC, SELFPAY ==
[2023-06-04 04:52] VITALS: BP 155/85; PULSE 83; RESP 20; TEMP 36.7; O2SAT 99; BMI 27.4
--- NOTE | 2023-06-04 05:29 | CRLHL7_ITS ---
For Patients: As a result of the Cures Act, medical imaging exams and procedure reports are released immediately into your electronic medical record. You may view this report before your referring provider. If you have questions, please contact your health care provider. Indication: Hemoptysis, smoker Comparison: Two-view chest January 30, 2022 Technique: PA and lateral views of the chest Findings: There is hyperinflation and chronic interstitial change with mildly increased interstitial markings. No obvious dense consolidation, effusion or pneumothorax. Stable calcified granuloma in the right upper lobe. The cardiomediastinal silhouette is within normal limits. The bony thorax is grossly intact. Impression: Mildly increased interstitial markings from comparison which may represent mild bronchial thickening and/or pulmonary vascular congestion. No dense consolidation or obvious mass lesion. Dictated by Jameel Mock MD @ 06/04/2023 6:32:00 AM (Electronically Signed)
--- NOTE | 2023-06-04 05:30 | ED_ITS ---
HPI - General Adult General Chief complaint: Unspecified Complaint, Adult Stated complaint: Coughing out blood. Time Seen by Provider: 06/04/23 04:52 Source: patient and family Mode of arrival: ambulatory Limitations: no limitations History of Present Illness HPI narrative: 63-year-old female with 1 month history of cough presents to the emergency department for evaluation of hemoptysis that started an hour prior to arrival. Not severe, no clots, no shortness of breath or respiratory symptoms. She is a smoker, does not carry a diagnosis of prior COPD. But has been a smoker for several decades. Reports that the cough has been productive of clear phlegm for about a month, little worse in the mornings. She has been struggling with nausea and abdominal distension for several months, since she had a spine procedure last spring. There were complications and ultimately she had to have a revision performed in January and feels like she has just never fully recovered. She had a colonoscopy earlier this week to help investigate some ongoing GI symptoms, this did show 1 small polyp but certainly did not explain her symptoms. She had some nausea this morning which she often does but is very confident that the blood is hemoptysis and not hematemesis. There was no emesis. She was a nurse for several decades and feels quite confident with her her assessment and knowing the difference. She did cough up a small sample while in our ED and I examined this on a tissue and it is clearly bright red tinged hemoptysis. She has a history of peripheral vascular disease and does take 81 mg aspirin daily but does not have stents. She does use NSAIDs frequently because of ongoing issues with her back. She does not use an antacid medication. She has not had an endoscopy. No prior history of bronchoscopy or prior episodes of hemoptysis. No recent chest x-ray. Denies other injury or trauma. No recent fever or symptoms of infection. Did not try any home treatments prior to coming to the ED. No pain. No prior history of DVT or PE. Past medical history notable for continued tobacco use, peripheral vascular disease. Hypertension, hyperlipidemia. Home meds are Crestor, lisinopril, low- dose aspirin and she recently started clonidine for hot flashes. Socially she is a smoker, very rare alcohol. No pertinent travel. ROS notable for the respiratory and generalized and abdominal symptoms as above, otherwise denies times 12 systems. Related Data Home Medications Medication Instructions Recorded Confirmed aspirin 81 mg tablet,delayed 81 mg PO QDAY 01/30/22 05/17/23 release (Adult Aspirin Regimen) Previous Rx's Medication Instructions Recorded albuterol sulfate 90 mcg/actuation 2 puff inhalation Q6H PRN 05/17/23 aerosol inhaler (Ventolin HFA) shortness of breath or wheezing #8.5 grams clonidine HCl 0.1 mg tablet 0.1 mg PO QHS #30 tabs 05/17/23 hydrocodone 5 mg-acetaminophen 325 1 tab PO QDAY PRN pain #30 tabs 05/17/23 mg tablet lisinopril 10 mg tablet 10 mg PO QDAY #90 tabs 05/17/23 rosuvastatin 20 mg tablet 20 mg PO .hs #90 tabs 05/17/23 peg 3350-electrolytes 236 240 ml PO Q10M #4,000 mL 05/19/23 gram-22.74 gram-6.74 gram-5.86 gram solution (Golytely) doxycycline hyclate 100 mg capsule 100 mg PO BID #14 caps 06/04/23 Allergies Allergy/AdvReac Type Severity Reaction Status Date / Time No Known Allergies Allergy Verified 05/17/23 08:48 [facility] Medical History Colonoscopy planned Family history of colon cancer ?Z80.0 - Family history of malignant neoplasm of digestive organs (ICD-10) Surgical History Hx of colonoscopy ?Z98.890 - Other specified postprocedural states (ICD-10) History of ear surgery ?Z98.890 - Other specified postprocedural states (ICD-10) Status post hemilaminotomy ?Z98.890 - Other specified postprocedural states (ICD-10) History of excision of lamina of lumbar vertebra for decompression of spinal cord ?Z98.890 - Other specified postprocedural states (ICD-10) History of laparoscopic cholecystectomy ?Z90.49 - Acquired absence of other specified parts of digestive tract (ICD- 10) History of hysterectomy (05/12/10) ?Z90.710 - Acquired absence of both cervix and uterus (ICD-10) Family History Mother Breast cancer Colorectal cancer Liver cancer Sister Breast cancer, Onset Age: 45 Father Throat cancer Stroke Social History Narrative: Tobacco use Consumers alcohol occasionally No illicit drug use Smoker (1/2 ppd) What is your current living situation?: I presently have a place to live Problems where you live: no known problems In the past 12 months, utilities in danger of being shut off: no In past 12 months, lack of transportation kept you from medical appts, meetings, work, or getting things needed for daily living: no In the past 12 mos, have been you worried that your food would run out before you had money to buy more?: never true In the past 12 mos, the food you bought just didn't last and you didn't have money to buy more?: never true Smoking Status: Current some day smoker What tobacco products do you use: cigarettes Smoking quit date/years: <= 15 years ago Do you use any of these nicotine containing products: None Second hand tobacco smoke exposure: No How often do you have a drink containing alcohol: never How often do you have six or more drinks on one occasion: Never AUDIT-C Alcohol total score: 0 Non-prescribed substance use: denies use How often does anyone, including family, friends and others, physically hurt you : never How often does anyone, including family, friends and others, insult or talk down to you: never How often does anyone, including family, friends and others, threaten you with harm: never How often does anyone, including family, friends and others, scream or curse at you: never Little interest or pleasure in doing things: several days Feeling down, depressed, or hopeless: not at all Exam Const: Vital Signs, click to edit/add: Vital Signs - 24 hr 06/04/23 04:52 Temperature 98.0 F Pulse Rate [Right Pulse Oximeter] 83 Respiratory Rate 20 Blood Pressure [Ri ght Upper Arm] 155/85 H Pulse Oximetry 99 Oxygen Delivery Me thod Room Air Documenting provider has reviewed patient's vital signs: yes Common normals: no apparent distress and alert Other: Good historian. Awake and alert. No impairment. HENMT: Common normals: normocephalic, moist oral mucous membranes, oropharynx normal, dentition normal and gingiva normal Head and scalp: normocephalic Eye: Common normals: conjunctivae normal General eye: normal appearance of both eyes Conjunctiva: conjunctiva(e) normal Neck & C-Spine: Common normals: full ROM and no lymphadenopathy Chest: Common normals: inspection of chest normal Resp: Common normals: normal respiratory effort, no use of accessory muscles and clear to auscultation bilaterally Effort & inspection: able to speak in complete sentences Auscultation: clear to auscultation bilaterally Cardio: Common normals: regular rate, regular rhythm, S1 normal heart sound, S2 normal heart sound and no murmurs Rate: regular rate Rhythm: regular rhythm Heart sounds: S1 normal and S2 normal GI: Common normals: Normal to inspection, nondistended, normoactive bowel sounds present, soft to palpation, non-tender, no hepatosplenomegaly and no masses Palpation: soft and no hepatosplenomegaly Extremity: Common normals: normal to inspection, normal capillary refill and no pedal edema Neuro: Sensorium/orientation: alert Speech: speech normal Motor exam: no movement abnormalities noted Psych: Attitude: engaged Activity/motor behavior: appropriate eye contact Insight: insight good Judgement: judgment good Skin: Common normals: no rashes or lesions noted General skin exam: no rashes or lesions noted Course Course ED Course: Differential diagnosis including hemoptysis from infection, tumor, clot, multiple factors. Could be gastrointestinal or or pharyngeal in nature, exam is overall reassuring. Certainly no signs of respiratory distress, persistent bleeding or other dangerous complication. I recommended some basic labs to look at a CBC, CRP and upper GI medication per her request, Zofran and famotidine. I have ordered a two view chest x-ray. Counseled that she may need a CT or a pulmonology follow-up based on findings. Await result. Reevaluation(s) Time of Reevaluation #1: 07:45 Reevaluation #1: Findings reviewed with patient. Still having very scant streaks of hemoptysis about once an hour, no significant shortness of breath, blood clots or severe bleeding. Labs are reassuring, chest x-ray showing an old granuloma, elected to do a CT because her smoking history. This shows with likely some ground-glass inflammatory versus infectious infiltrates. Because of her month long history of cough and now hemoptysis I do elect to treat with doxycycline. Will give 1st dose here in the ED, additional one-week supply sent pharmacy. Counseled to hold her aspirin for the next 5 days, she is reliable for follow-up if the bleeding worsens. Does not need hospitalization for observation. Referral placed to pulmonology. May need bronchoscopy depending on phosphoric acid operator recommendations. Follow-up in 1 week with primary care provider to recheck breathing symptoms, insure that pulmonology referral has been placed. Alarm symptoms reviewed that would warrant ED follow-up, she verbalizes understanding and agreement. Vital Signs Vital signs: Initial Vital Signs Temperature 98.0 F 06/04/23 04:52 Temperature Source Temporal Artery Scan 06/04/23 04:52 Pulse Rate 83 06/04/23 04:52 Respiratory Rate 20 06/04/23 04:52 Blood Pressure 155/85 H 06/04/23 04:52 Blood Pressure Mean 108 H 06/04/23 04:52 Blood Pressure Position Sitting 06/04/23 04:52 Pulse Oximetry 99 06/04/23 04:52 Oxygen Delivery Method Room Air 06/04/23 04:52 Vital Signs Temperature 98.0 F 06/04/23 04:52 Pulse Rate 83 06/04/23 04:52 Respiratory Rate 20 06/04/23 04:52 Blood Pressure 155/85 H 06/04/23 04:52 Pulse Oximetry 99 06/04/23 04:52 Oxygen Delivery Method Room Air 06/04/23 04:52 Temperature 98.0 F 06/04/23 04:52 Pulse Rate 83 06/04/23 04:52 Respiratory Rate 20 06/04/23 04:52 Blood Pressure 155/85 H 06/04/23 04:52 Pulse Oximetry 99 06/04/23 04:52 Oxygen Delivery Method Room Air 06/04/23 04:52 Medications Administered Medications: Discontinued Medications Generic Name Dose Route Start Last Admin Trade Name Freq PRN Reason Stop Dose Admin Famotidine 20 mg 06/04/23 05:29 06/04/23 05:34 Famotidine 20 Mg Tablet PO 06/04/23 05:30 20 mg ONCE ONE Administration Ondansetron HCl 4 mg 06/04/23 05:29 06/04/23 05:34 Ondansetron Odt 4 Mg Tab PO 06/04/23 05:30 4 mg ONCE ONE Administration Medical Decision Making Lab Data Lab results reviewed: Yes I reviewed the patient's lab results Lab results narrative: Labs reassuring. Labs: Lab Results 06/04/23 Range/Units 05:45 WBC 5.86 (4.50-11.00) K/uL RBC 4.12 (4.00-5.20) m/uL Hgb 12.5 (12.0-16.0) gm/dL Hct 38.0 (33.0-51.0) % MCV 92 (80-100) fL MCH 30 (26-34) pg MCHC 33 (32-36) gm/dL RDW Coeff of Alejandro 14.1 (11.5-15.5) % Plt Count 262 (140-440) K/uL Neut % (Auto) 52.9 (42.0-72.0) % Lymph % (Auto) 35.5 (20-44) % [place] % (Auto) 8.0 (0.0-11.0) % Eos % (Auto) 3.1 (0.0-7.0) % Baso % (Auto) 0.3 (0.0-3.0) % Neut # (Auto) 3.10 (1.7-7.0) K/uL Lymph # (Auto) 2.08 (0.90-2.90) K/uL [place] # (Auto) 0.50 (0.00-0.90) K/UL Eos # (Auto) 0.18 (0.00-0.50) K/uL Baso # (Auto) 0.02 (0.00-0.30) K/uL Abs Immat Gran (auto) 0.01 (0.00-0.30) K/uL Imm/Tot Granulo (auto) 0.2 % INR 0.95 (0.91-1.10) Sodium 144 (135-149) mmol/L Potassium 3.9 (3.6-5.1) mmol/L Chloride 110 (96-114) mmol/L Carbon Dioxide 27 (20-32) mmol/L Anion Gap 7 (7-15) mEq/L BUN 13 (7-30) mg/dL Creatinine 0.6 (0.5-1.5) mg/dL Estimated Creat Clear 44.36 Estimated GFR 100 ml/min Glucose 94 (60-115) mg/dL Calcium 8.8 (8.4-10.6) mg/dL Total Bilirubin 0.2 (0.1-1.5) mg/dL AST 19 (12-35) U/L ALT 12 (4-35) U/L Alkaline Phosphatase 60 (40-150) U/L C-Reactive Protein 0.6 (0.5-1.0) mg/dL Total Protein 6.8 (6.0-8.3) g/dL Albumin 4.0 (3.3-5.0) g/dL Imaging Data Chest x-ray: Attestation: I have reviewed the pertinent imaging results. My impression: Calcified lesion in the right upper lobes, likely chronic in nature but some hyperinflation and increased perihilar markings noted. Because of her smoking history and findings I do recommend that we proceed with CT scan Radiologist's impression: Impression: Mildly increased interstitial markings from comparison which may represent mild bronchial thickening and/or pulmonary vascular congestion. No dense consolidation or obvious mass lesion. Dictated by Jameel Mock MD @ 06/04/2023 6:32:[address] scan - chest: Attestation: I have reviewed the pertinent imaging results. My impression: No major masses or focal infiltrate, calcified looking old granuloma Radiologist's impression: IMPRESSION: 1. Subtle tree-in-bud and ground-glass nodules within the left upper lobe. Findings suspicious for nonspecific infectious/inflammatory process. 2. Continued decrease conspicuity of reticulonodular densities within the periphery of the right lung laterally, representing residual of prior inflammat ory process. This is near completely resolved when compared to prior. 3. Pulmonary emphysema. Old granulomatous disease. No enlarged lymph nodes by size criteria. Discharge Plan Discharge Clinical Impression: Hemoptysis Patient Disposition: Home, Self-Care Condition: Stable Instructions: Coughing Up Blood (Hemoptysis) (ED) Additional Instructions: As we discussed, the chest x-ray and CT scan look reassuring. There are no signs of tumors, cancer or other dangerous reasons for the coughing up blood. As we discussed, this is usually from a mild inflammation from an infection. I have started on doxycycline, a common respiratory antibiotic. You have been given your 1st dose here in the emergency department. You will continue taking this twice daily for a week. However, I do think that this needs further investigation because of your smoking history. I have recommended a referral to pulmonology and have placed an order for consult for this. Your primary care team can help coordinate this also. Patient call you within the next few days to schedule an appointment. It may take a few weeks to get an appointment and that is actually okay. I would like for you to hold your aspirin for the next 5 days. You may still continue to have small amounts of blood like you are currently having. If you have significant amounts, especially if accompanied by shortness of breath or other worsening weakness symptoms, please come back to the ER right away. It is okay to use Tylenol as needed for any discomfort. I do not think that this is connected to your GI symptoms but do think those are made worse by or anti-inflammatory medications. Would recommend that you do a trial of an antacid medication like famotidine once daily for the next couple of weeks to see if that improves those symptoms. I would like for you to schedule follow-up appointment with her primary care doctor next week to recheck your hemoglobin and to make sure that the bleeding has subsided. If you have not yet heard from the phosphoric acid operator, inform your primary care doctor so that they may further help you coordinate that appointment. Activity Level: No Restrictions Discharge Diet: Regular Prescriptions: New doxycycline hyclate 100 mg capsule 100 mg PO BID Qty: 14 0RF No Action rosuvastatin 20 mg tablet 20 mg PO .hs Qty: 90 3RF clonidine HCl 0.1 mg tablet 0.1 mg PO QHS Qty: 30 3RF lisinopril 10 mg tablet 10 mg PO QDAY Qty: 90 3RF hydrocodone-acetaminophen 5-325 mg tablet 1 tab PO QDAY PRN (Reason: pain) Qty: 30 0RF albuterol sulfate [Ventolin HFA] 90 mcg/actuation HFA aerosol inhaler 2 puff inhalation Q6H PRN (Reason: shortness of breath or wheezing) Qty: 8.5 12RF Rx Instructions: dispense whichever albuterol inhaler is covered aspirin [Adult Aspirin Regimen] 81 mg tablet,delayed release (DR/EC) 81 mg PO QDAY peg 3350-electrolytes [Golytely] 236-22.74-6.74 -5.86 gram recon soln 240 ml PO Q10M Qty: 4000 0RF Rx Instructions: until fecal effluent is clear Follow Up/Referrals: Julian Winchesetr DO [Referring] - (1st available pulmonology, any group) Aracely Friedman MD [Primary Care Provider] - Stand Alone Forms: MyHealth Info Instructions
[2023-06-04] MEDS: FAMOTIDINE 20 MG TABLET PO (05:34)
[2023-06-04] MEDS: ONDANSETRON ODT 4 MG TAB PO (05:34)
--- OUTSIDE RECORDS SUMMARY | 2023-06-04 05:35 | XMS_ITS | Continuity of Care Document ---
Author Name Unknown Organization [facility] Address [address] [place] [address] Phone Care Team Providers Care Painter Interior Finish Name Role Phone Brown Jorge SMITH Unavailable Allergies, Adverse Reactions, Alerts Substance Reaction Status Criticality No Known Allergies Active No Inform ation Medications Medication Instructions Dosage Effective Dates (start - stop) Status Comments gabapentin 300 mg capsule take 1 capsule by oral route 2 times every day X one week then 1 capsule daily X one week - Active hydrocodone 5 mg-acetaminophen 325 mg tablet take 1 Tablet by ORAL route every 12 hours as needed for pain 1 Tablet - Active HYDROCODONE -ACETAMINOPHEN 5/325 MG Oral Take one tablet po hs prn - Active oxycodone 5 mg tablet take [...] Written on behalf of Dr. Lisa Mccarthy IBUPROFEN (unknown strength) Not Available - Active ESTROGEN-METHYLTEST OSTERONE (unknown strength) Not Available - Active ALIVE WOMEN'S ENERGY (unknown strength) Not Available - Active Procedures Procedure Date POSTOP FOLLOW-UP VISIT Telephone 2022 Postop Followup Visit PSF, Lumbar - PA PSF - Additional Level(s) - PA Lami, Facetectomy/Foraminotomy, Lumbar ( Stenosis) Reinsertion of Instrumentation - NM PSF, Lumbar PSF - Additional Level(s) Lami, [...] [facility], [address], [place], [id number] , [place] tel: [phone] [facility] No Information 3 Brown Jorge. [address] [place] [address], [place], [id number] , [place]. [phone] Referring Provider: Rudi Mcneil, [facility] & [address], [place], [address]. tel:[phone] [facility], [address], [place], [id number] , [place] tel: [phone] [facility] No Information Feb-2 3 Mehbod Amir. [facility], [address] [place] [address] [address], [place], [address] , [place]. tel: [phone] [facility], [address], [place], [address] , [place] tel: [phone] [facility] Encounter for other specified surgical aftercare Sep- 3 Mehbod Amir. [facility], [address] [place] [address] [address], [place], [address] , [place]. tel: [phone] Referring Provider: Rudi Mcniel, [facility] & [address], [address]. [phone] [facility], [address], [place], [address] , [place] tel: [phone] [facility] No Information Feb-0 3 Mehbod Amir. [facility], [address] [place] [address] [address], [place], [address] , [place]. tel: [phone] [facility], [address], [place], [address] , [place] tel: [phone] [facility] No Information Jan- 3 Elder Angulo . [facility], [address] [place] [address] [address], [place], [address], [place]. tel: [phone] Referring Provider: Rudi Mcneil, [facility] & [address], [address]. tel:[phone] [facility], [address], [place], [address] , [place] tel: [phone] [facility] No Information 3 Mehbod Amir. [facility], [address] [place] [address] [address], [place], [address] , [place]. tel: [phone] [facility], [address], [place], [address] , [place] tel: [phone] [facility] No Information 3 Mehbod Amir. [facility], [address], [place], [id number] , [place]. tel: [phone] Referring Provider: Rudi Mcneil, [facility] & [address], [address]. tel:[phone] [facility], [address], [place], [id number] , [place] tel: [phone] [facility] No Information 3 Mehbod Amir. [facility], [address] [place] [address] [address], [place], [id number] , [place]. tel: [phone] Physician Telephone Evaluation 5-10 Min [facility], [address], [place], [id number] , [place] tel: [phone] [facility] No Information 3 Mehbod Amir. [facility], [address] [place] [address] [address], [place], [id number] , [place]. tel: [phone] Referring Provider: Rudi Mcneil, [facility] & [address], [address]. tel:[phone] [facility], [address], [place], [id number] , [place] tel: [phone] [facility] No Information 3 Mehbod Amir. [facility], [address] [place] [address] [address], [place], [id number] , [place]. tel: [phone] [facility], [address], [place], [id number] , [place] tel: [phone] [facility] No Information 3 Mehbod Amir. [facility], [address] [place] [address] [address], [place], [id number] , [place]. tel: [phone] [facility], [address], [place], [address] , [place] tel:[phone] [facility] No Information 3 Eckroth Jorge. [address], [place], [address] , [place]. tel: [phone] [facility], [address], [place], [address] , [place] tel:[phone] [facility] No Information 3 Mehbod Amir. [facility], [address] [place] [address] 600, [place], [address] , [place]. tel:[phone] Referring Provider: Rudi Mcneil, [facility] & [address], [address]. tel:[phone] [facility], [address], [place], [address] , [place] tel:[phone] [facility] No Information 3 Mehbod Amir. [facility], [address] [place] [address] 600, [place], [address] , [place]. tel: [phone] [facility], [address], [place], [address] , [place] tel: [facility] No Information 0 3 Mehbod Amir. [facility], [address], [place], [address] , [place]. tel: [phone] [facility], [address], [place], [address] , [place] tel: [facility] No Information 3 Mehbod Amir. [facility], [address], [place], [address] , [place]. tel: [phone] [facility], [address], [place], [address] , [place] tel: [facility] No Information 3 Mehbod Amir. [facility], [address] [place] [address] 600, [facility] [place], [address] , [place]. tel: [phone] [facility], [address], [facility] [place], [address] , [place] tel: [phone] [facility] No Information 3 Mehbod Amir. [facility], [address], [facility] [place], [place], [address] , [place]. tel: [phone] Referring Provider: Primary Care Doctor No. [facility], [address], [facility] [place], [address] , [place] tel: [phone] [facility] No Information 3 Eckroth Jorge. [address] [place] [address] 600, [facility] [place], [address] , [place]. tel: [phone] Referring Provider: Rudi Mcneil, [facility] & [address], [address]. tel:[phone] [facility], [address], [facility] [place], [address] , [place] tel: [phone] [facility] No Information 3 Mehbod Amir. [facility], [address] [place] [address] 600, [place], [place], [address] , [place]. tel: [phone] Referring [facility]: [facility] & [address], [address]. tel:[phone] Office/Outpat ient Visit,New, Mod [facility], [address], [facility] [place], [place], [address] , [place] tel: [phone] [facility] Spinal stenosis, lumbar region with neurogenic claudication Fe 3 Mehbod Amir. [facility], [address], [facility], [place], [address] , [place]. tel: [phone] Referring Provider: Rudi Mcneil, [facility] [address] [facility], [place], [address]. tel:[phone] Office/Outpat ient Visit,Est, Mod [facility], [address], [place], [place], [address] , [place] tel: [phone] [facility] Spinal stenosis, lumbar region 2 6 Mehbod AmirNahomy [facility], [address] [place] [address] 600, [place], [place], [address] , [place]. tel: [phone] Referring Provider: Lisa Mccarthy, [facility] [address] [address], [place], [address]. tel:[phone] [facility], [address], [place], [place], [address] , [place] tel: [phone] [facility] Spinal stenosis, lumbar region 0-201 6 Eckroth Jorge. [address] [place] [address] 600, [place], [place], [address] , [place]. tel: [phone] Referring Provider: Lisa Mccarthy, [facility] [address] [address], [place], [address]. tel:[phone] [facility], [address], [place], [place], [address] , [place] tel: [phone] [facility] Other intervertebral disc degeneration, thoracolumbar regionSpinal stenosis, lumbar region 2201 6 Mehbod AmirNahomy [facility], [address], [place], [place], [address] , [place]. tel: [phone] Referring Provider: Lisa Mccarthy, [facility] [address], [place], [address]. tel:[phone] [facility], [address], [place], [place], [address] , [place] tel: [phone] [facility] No Information 3201 6 Mehbod [facility], [address], [place], [place], [address] , [place]. tel:[phone] Referring Provider: Lisa Mccarthy, [facility] [address], [place], [address]. tel:[phone] Office/Outpat ient Visit,New, Mod [facility], [address], [place], [place], [address] , [place] [phone] [facility] Other intervertebral disc degeneration, thoracolumbar regionSpinal stenosis, lumbar region 6 Mehbod [facility], [address], [place], [place], [address] , [place]. [phone] Referring Provider: Jewel Gerard, [facility] [address] [place], [address]. tel:[phone] Family History Family Member Type Diagnosis Age At Onset No Information Payers Payer name Insurance type Covered constitution party ID Authoriza tion(s) Medicare MB [id number] [facility] [id number] [facility] [id number] Social History Type Description Quantity Date Captured [...]
[2023-06-04 05:51] LABS: Basophils Absolute Auto 0.02 K/uL (0.00-0.30); Basophils Percent Auto 0.3 % (0.0-3.0); Eosinophils Absolute Auto 0.18 K/uL (0.00-0.50); Eosinophils Percent Auto 3.1 % (0.0-7.0); Hemoglobin* 12.5 gm/dL (12.0-16.0); Immature Granulocytes Abs Auto 0.01 K/uL (0.00-0.30); Immature Granulocytes Pct Auto 0.2 %; Lymphocytes Absolute Auto 2.08 K/uL (0.90-2.90); Lymphocytes Percent Auto 35.5 % (20-44); Mean Corpuscular HGB Conc 33 gm/dL (32-36); Mean Corpuscular Hemoglobin 30 pg (26-34); Mean Corpuscular Volume 92 fL (80-100); Neutrophils Percent Auto 52.9 % (42.0-72.0); Platelet Count* 262 K/uL (140-440); RDW Coefficient of Variation % 14.1 % (11.5-15.5); Red Blood Count 4.12 m/uL (4.00-5.20); White Blood Count* 5.86 K/uL (4.50-11.00)
[2023-06-04 05:53] LABS: Slide Review Reflex No
[2023-06-04 06:14] LABS: Chloride* 110 mmol/L (96-114)
[2023-06-04 06:15] LABS: Potassium* 3.9 mmol/L (3.6-5.1); Sodium* 144 mmol/L (135-149)
[2023-06-04 06:17] LABS: Bilirubin Total* 0.2 mg/dL (0.1-1.5); Creatinine* 0.6 mg/dL (0.5-1.5); Est. Creatinine Clearance* 44.36; Estimated Glomerular Filt Rate 100 ml/min; INR 0.95 (0.91-1.10); Prothrombin Time 13.3 Seconds
[2023-06-04 06:18] LABS: Alanine Aminotransferase* 12 U/L (4-35); Alkaline Phosphatase* 60 U/L (40-150); Anion Gap 7 mEq/L (7-15); Aspartate Amino Transferase* 19 U/L (12-35); Blood Urea Nitrogen* 13 mg/dL (7-30); Carbon Dioxide* 27 mmol/L (20-32); Glucose* 94 mg/dL (60-115); Total Protein* 6.8 g/dL (6.0-8.3)
[2023-06-04 06:19] LABS: Calcium* 8.8 mg/dL (8.4-10.6)
[2023-06-04 06:21] LABS: C Reactive Protein* 0.6 mg/dL (0.5-1.0)
--- NOTE | 2023-06-04 06:23 | CRLHL7_ITS ---
For Patients: As a result of the Century Cures Act, medical imaging exams and procedure reports are released immediately into your electronic medical record. You may view this report before your referring provider. If you have questions, please contact your health care provider. INDICATION: evaluate mass, hemoptysis TECHNIQUE: CT chest without contrast. COMPARISON: CT chest August 05, 2022. FINDINGS: Lungs and pleura: Passive bibasilar atelectasis. Unchanged appearance of 1.1 cm right upper lobe calcified granuloma. Subtle tree-in-bud and ground-glass nodules within the left upper lobe. Continued decrease conspicuity of reticulonodular densities within the periphery of the right lung laterally, representing residual of prior inflammatory process. This is not near completely resolved when compared to prior. No focal consolidation. No pleural effusions, pleural thickening, or pneumothorax. Mild pulmonary emphysema. No suspicious pulmonary nodule. The central airways are patent. Heart and vasculature: Heart size is normal. Coronary artery and thoracic aortic calcifications. Thoracic aorta and pulmonary artery are normal in caliber. Lymph nodes/mediastinum: Calcified mediastinal and hilar nodes. Chest wall: No masses. Upper abdomen: Sequela calcified granulomata within the spleen. Bones: Unremarkable for age. IMPRESSION: 1. Subtle tree-in-bud and ground-glass nodules within the left upper lobe. Findings suspicious for nonspecific infectious/inflammatory process. 2. Continued decrease conspicuity of reticulonodular densities within the periphery of the right lung laterally, representing residual of prior inflammatory process. This is near completely resolved when compared to prior. 3. Pulmonary emphysema. Old granulomatous disease. No enlarged lymph nodes by size criteria. Please note that all CT scans at this facility use dose modulation, iterative reconstruction, and/or weight-based dosing when appropriate to reduce radiation dose to as low as reasonably achievable. Dictated by Rober Myers MD @ 06/04/2023 7:36:11 AM (Electronically Signed)
== END 2023-06-04 07:58 | disposition home or self-care (01) ==
PROVIDERS: Emergency Provider Family Medicine; PCP Family Medicine
DX: R04.2 Hemoptysis (principal)
CPT/HCPCS: 36415; 71046; 71250; 80053; 85025; 85610; 86140; 99284; A9270

== ENCOUNTER 2023-06-23 12:45 | Outpatient (CLI) | payer MEDICARE, BC, SELFPAY ==
--- OUTSIDE RECORDS SUMMARY | 2023-06-23 12:50 | XMS_ITS | Continuity of Care Document ---
Author Name Unknown Organization [facility] Address [address] [place] [address] Phone Care Team Providers Care Poultry Eviscerator Name Role Phone Brown Jorge SMITH Unavailable [...] Lumbar ( Stenosis) Reinsertion of Instrumentation - CO PSF, Lumbar PSF - Additional Level(s) Lami, [...] [facility], [address], [place], [id number] , [place] tel: [phone] [facility] No Information 3 Brown Jorge. [address] [place] [address], [place], [id number] , [place]. [phone] Referring Provider: Rudi Mcneil, [facility] & [address], [place], [address]. tel:[phone] [facility], [address], [place], [id number] , [place] tel: [phone] [facility] No Information Feb-2 3 Mehbod Amir. [facility] [place], [address] [place] [address] [address], [place], [address] , [place]. tel: [phone] [facility], [address], [place], [address] , [place] tel: [phone] [facility] Encounter for other specified surgical aftercare Sep- 3 Mehbod Amir. [facility] [place], [address] [place] [address] [address], [place], [address] , [place]. tel: [phone] Referring Provider: Rudi Mcneil, [facility] & [address], [address]. [phone] [facility], [address], [place], [address] , [place] tel: [phone] [employer] [facility] No Information Feb-0 3 Mehbod Amir. [facility] [place], [address] [place] [address] [address], [place], [address] , [place]. tel: [phone] [facility], [address], [place], [address] , [place] tel: [phone] [facility] No Information Jan- 3 Elder Angulo . [facility] [place], [address] [place] [address] [address], [place], [address], [place]. tel: [phone] Referring Provider: Rudi Mcneil, [facility] & [address], [address]. tel:[phone] [facility], [address], [place], [address] , [place] tel: [phone] [employer] [facility] No Information 3 Mehbod Amir. [facility] [place], [address] [place] [address] [address], [place], [address] , [place]. tel: [phone] [facility], [address], [place], [address] , [place] tel: [phone] [facility] No Information 3 Mehbod Amir. [facility], [address], [place], [address] , [place]. tel: [phone] Referring Provider: Rudi Mcneil, [facility] & [address], [address]. tel:[phone] [facility], [address], [place], [address] , [place] tel: [phone] [facility] No Information 3 Mehbod Amir. [facility] [place], [address] [place] [address] [address], [place], [address] , [place]. tel: [phone] Physician Telephone Evaluation 5-10 Min [facility], [address], [place], [address] , [place] tel: [phone] [facility] No Information 3 Mehbod Amir. [facility] [place], [address] [place] [address] [address], [place], [address] , [place]. tel: [phone] Referring Provider: Rudi Mcneil, [facility] & [address], [address]. tel:[phone] [facility], [address], [place], [address] , [place] tel: [phone] [facility] No Information 3 Mehbod Amir. [facility] [place], [address] [place] [address] [address], [place], [address] , [place]. tel: [phone] [facility], [address], [place], [address] , [place] tel: [phone] [facility] No Information 3 Mehbod Amir. [facility] [place], [address] [place] [address] [address], [place], [address] , [place]. tel: [phone] [facility], [address], [place], [address] , [place] tel:[phone] [facility] No Information 3 Eckroth Jorge. [address], [place], [address] , [place]. tel: [phone] [facility], [address], [place], [address] , [place] tel:[phone] [facility] No Information 3 Mehbod Amir. [facility] [place], [address] [place] [address] 600, [place], [address] , [place]. tel:[phone] Referring Provider: Rudi Mcneil, [facility] & [address], [address]. tel: [phone] [facility], [address], [place], [address] , [place] tel:[phone] [facility] No Information 3 Mehbod Amir. [facility] [place], [address] [place] [address] 600, [place], [address] , [place]. tel: [phone] [facility], [address], [place], [address] , [place] tel: [facility] No Information 0 3 Mehbod Amir. [facility], [address], [place], [address] , [place]. tel: [phone] [facility], [address], [place], [address] , [place] tel: [facility] No Information 3 Mehbod Amir. [facility] [place], [address], [place], [address] , [place]. tel: [phone] [facility], [address], [place], [address] , [place] tel: [facility] No Information 3 Mehbod Amir. [facility] [place], [address] [place] [address] 600, [facility] [place], [address] , [place]. tel: [phone] [facility], [address], [facility] [place], [address] , [place] tel: [phone] [facility] No Information 3 Mehbod Amir. [facility] [place], [address], [facility] [place], [address] , [place]. tel: [phone] Referring Provider: Primary Care Doctor No. [facility], [address], [facility] [place], [address] , [place] tel: [phone] [facility] No Information 3 Eckroth Jorge. [address] [place] [address] 600, [facility] [place], [address] , [place]. tel: [phone] Referring Provider: Rudi Mcneil, [facility] & [address], [address]. tel:[phone] [facility], [address], [facility] [place], [address] , [place] tel: [phone] [facility] No Information 3 Mehbod Amir. [facility] [place], [address] [place] [address] 600, [place], [place], [address] , [place]. tel: [phone] Ref[facility] & [address], [address]. tel:[phone] Office/Outpat ient Visit,New, Mod [facility], [address], [facility] [place], [address] , [place] tel: [phone] [facility] Spinal stenosis, lumbar region with neurogenic claudication Fe 3 Mehbod Amir. [facility] [place], [address], [facility], [place], [address] , [place]. tel: [phone] Referring Provider: Rudi Mcneil, [facility] [address] [facility], [place], [address]. tel:[phone] Office/Outpat ient Visit,Est, Mod [facility], [address], [place], [place], [address] , [place] tel: [phone] [facility] Spinal stenosis, lumbar region 2 6 Mehbod AmirNahomy [facility] [place], [address] [place] [address] 600, [place], [place], [address] , [place]. tel: [phone] Referring Provider: Lisa Mccarthy, [facility] [address] [address], [place], [address]. tel:[phone] [facility], [address], [place], [place], [address] , [place] tel: [phone] [facility] Spinal stenosis, lumbar region 0-201 6 Eckroth Jorge. [address] [place] [address] 600, [place], [place], [address] , [place]. tel: [phone] Referring Provider: Lisa Mccarthy, [facility] [address] [address], [place], [address]. tel:[phone] [facility], [address], [place], [place], [address] , [place] tel: [phone] [facility] [place] Other intervertebral disc degeneration, thoracolumbar regionSpinal stenosis, lumbar region 2201 6 Mehbod AmirNahomy [facility] [place], [address], [place], [place], [address] , [place]. tel: [phone] Referring Provider: Lisa Mccarthy, [facility] [address], [place], [address]. tel:[phone] [facility], [address], [place], [place], [address] , [place] tel: [phone] [facility] No Information 3201 6 Mehbod [facility], [address], [place], [place], [address] , [place]. tel:[phone] Referring Provider: Lisa Mccarthy, [facility] [address], [place], [address]. tel:[phone] Office/Outpat ient Visit,New, Mod [facility], [address], [place], [place], [address] , [place] [phone] [facility] Other intervertebral disc degeneration, thoracolumbar regionSpinal stenosis, lumbar region 6 Mehbod [facility], [address], [place], [place], [address] , [place]. [phone] Referring Provider: Jewel Gerard, [facility] [address] [place], [address]. tel:[phone] Family History Family Member Type Diagnosis Age At Onset No Information Payers Payer name Insurance type Covered green party ID Authoriza tion(s) Medicare MB [id number] [facility] [id number] [facility] [id number] Social History Type Description Quantity Date Captured [...]
--- NOTE | 2023-06-23 13:00 | CRLHL7_ITS ---
For Patients: As a result of the Cures Act, medical imaging exams and procedure reports are released immediately into your electronic medical record. You may view this report before your referring provider. If you have questions, please contact your health care provider. Examination: US abdominal aorta Indication: Abdominal aortic aneurysm screening. Technique: Martinez scale and color Doppler images of the aorta and common iliac arteries are obtained. Comparison: None Findings: Proximal aorta: 2.3 x 2.3 cm Mid aorta: 1.8 x 1.9 cm Distal aorta: 1.7 x 1.7 cm Right common iliac artery: 1.0 x 1.0 cm Left common iliac artery: 0.9 x 0.9 cm Impression: No abdominal aortic aneurysm. Dictated by Isai Martell MD @ 06/24/2023 10:35:08 AM (Electronically Signed)
--- NOTE | 2023-06-23 14:00 | CRLHL7_ITS ---
For Patients: As a result of the Century Cures Act, medical imaging exams and procedure reports are released immediately into your electronic medical record. You may view this report before your referring provider. If you have questions, please contact your health care provider. DXA BONE MINERAL DENSITY STUDY Current height (in): 62. Weight (lb): 160.0. Menopause age: 43. Ethnicity: White. 1. Have you had a previous hip or vertebral fracture? No. 2. Have you had any fractures during your adult life which did not result from significant trauma (e.g., auto accident)? No. 3. Did either of your parents have a hip fracture? No. 4. Do you smoke? Yes. 5. Have you ever taken Glucocorticoids? No. 6. Do you have rheumatoid arthritis? No. 7. Do you have secondary osteoporosis? Yes. 8. Do you drink 3 or more alcoholic drinks per day? No. 9. Are you being treated for osteoporosis? No. 10. Have you ever taken any of the following medications: Actonel, Evista, Fosamax, Miacalcin, Reclast, Boniva, Forteo, HRT (i.e. estrogen/hormone therapy), Protelos, Prolia, Vitamin D, Calcium, other ??? please specify. ANSWER: No. 11. Do you have any of the following medical conditions: Anorexia or bulimia, asthma or emphysema, end stage renal disease, hyperparathyroidism, any seizure disorders, cancer, inflammatory bowel diseases, hysterectomy, other ??? please specify. ANSWER: Yes, hysterectomy. 12. What was your maximum height (inches)? 62. 13. Do you perform weight bearing exercise regularly? Yes. 14. Do you regularly consume dairy products? Yes. 15. Do you drink caffeinated beverages? Yes. If female: 16. At what age did your period start? 12. 17. Are you premenopausal? Yes. 18. How many full term pregnancies have you had? 2. 19. Have you ever missed your period for more than 6 months in a row (not including or menopause)? No. TECHNIQUE: Bone mineral density study was performed using the [employer]. FINDINGS: The results of the study expressed as bone mineral density (BMD) are as follows: Neck Left: BMD: 0.655 g/cm2. T-score: -1.7 . Z-score: -0.2. Right: BMD: 0.711 g/cm2. T-score: -1.2 . Z-score: 0.3. Total Left: BMD: 0.812 g/cm2. T-score: -1.1 . Z-score: 0.2. Right: BMD: 0.860 g/cm2. T-score: -0.7 . Z-score: 0.6. Radius Left 33%: BMD: 0.687 g/cm2. T-score: -0.1 . Z-score:1.6. IMPRESSION: Osteopenia. *Comparison exams done prior to 11/2019 were performed on different unit, [facility]. Isai Martell M.D. Diagnostic Radiologist [email or web address] PERLA/trish JR/Dictated by: Isai Martell MD @ 06/24/2023 8:55:00 AM (Electronically Signed)
== END 2023-06-23 12:46 | disposition home or self-care (01) ==
LOC: US 12:48
PROVIDERS: PCP Family Medicine; Visit Provider Family Medicine
DX: Z13.6 Encounter for screening for cardiovascular disorders (principal); Z13.820 Encounter for screening for osteoporosis; M85.89 Other specified disorders of bone density and structure, multiple sites; Z87.891 Personal history of nicotine dependence
CPT/HCPCS: 76706; 77080

== ENCOUNTER 2023-06-24 11:00 | Outpatient (RCR) | payer MEDICARE, BC, SELFPAY | END 2023-06-25 15:59 | disposition home or self-care (01) | PROVIDERS: PCP Family Medicine; Visit Provider Physician Assistant Surgical | DX: Z98.890 Other specified postprocedural states (principal); Z51.89 Encounter for other specified aftercare | CPT/HCPCS: 80053; 80061; 82043; 82570; 84156; 87086; 97110; 97140; 97161 ==

== ENCOUNTER 2023-07-14 09:58 | Outpatient (CLI) | payer MEDICARE, BC, SELFPAY ==
--- OUTSIDE RECORDS SUMMARY | 2023-07-14 10:01 | XMS_ITS | Clinical Summary ---
Author Name Unknown Organization [email or web address] [facility] [employer] Address [place], [place] [address] Care Team Providers Care Pals Specialist Name Role Phone Aracely Friedman Primary Care Provider Unava ilable Allergies No known active allergies Medications Medication Sig Dispensed Refills Start Date End Date Status rosuvastatin (CRESTOR) 20 mg tablet Take 1 Tablet by mouth once daily. 0 06/26/2021 Active lisinopril-hydroch lorothiazide (10-12.5 mg) tablet (PRINZIDE; ZESTORETIC) Take 1 Tablet by mouth once daily. 0 10/10/2021 Active aspirin (ECOTRIN) 81 mg enteric coated tablet Take 81 mg by mouth once daily. 0 Active WalkerIndications: S/P lumbar spinal fusion Walker with front wheels for home use for 3 months. 1 Each 0 09/09/2022 Active gabapentin (NEURONTIN) 300 mg capsule Take 300 mg by mouth four times daily. 0 Active acetaminophen (TYLENOL EXTRA STRGTH) 500 mg tabletIndications: Lumbar radicular pain Take 2 Tablets (1,000 mg) by mouth every 6 hours. Max acetaminophen dose: 4000mg in 24 hrs. 30 Tablet 0 02/10/2023 Active methocarbamoL (ROBAXIN) 750 mg tabletIndications: Lumbar radicular pain Take 1 Tablet (750 mg) by mouth every 6 hours if needed for Muscle Spasm. 30 Tablet 0 02/10/2023 Active ondansetron (ZOFRAN) 4 mg tabletIndications: Lumbar radicular pain Take 1 Tablet (4 mg) by mouth every 8 hours if needed for Nausea/Vomiting. 15 Tablet 0 02/10/2023 Active oxyCODONE (ROXICODONE) 5 mg immediate release tabletIndications: Lumbar radicular pain Take 1-2 Tablets (5-10 mg) by mouth every 4 hours if needed for Pain (First choice for severe pain.). 20 Tablet 0 02/10/2023 Active sennosides-docusat e (SENOKOT S) (8.6-50 mg) tabletIndications: Lumbar radicular pain Take 1-4 Tablets by mouth 2 times daily if needed for Constipation. 20 Tablet 0 02/10/2023 Active WalkerIndications: Lumbar radicular pain Walker with front wheels for home use for 3 months. 1 Each 0 02/10/2023 Active Active Problems Problem Noted Date Diagnosed Date COPD (chronic obstructive pulmonary disease) Atherosclerosis of aorta 09/08/2022 023 Vasomotor symptoms due to menopause 09/08/2022 09/08/2022 Lung nodule 09/08/2022 09/08/2022 Hypertension 09/08/2022 Hyperlipidemia 12/12/2021 09/08/2022 Peripheral vascular disease 12/12/202108/26 Lumbar foraminal stenosis 10/30/2015 Lumbar radicular pain 10/30/2015 H/O: hysterectomy 05/12/2010 09/08/2022 TOBACCO USE 06/17/2005 Dermatophytosis of nail 03/06/2004 Backache, unspecified 03/06/2004 VITREOUS DEGENERATION-OU 05/23/2002 OSTEOARTHROSIS, LOCAL, PRIM, LOWER LEG Resolved Problems Problem Noted Date Diagnosed Date Resolved Date Trochanteric Bursitis 06/02/20062015 BRONCHITIS - ACUTE 06/17/2005 6 Encounters Date Type Department Care Team Description 07/13/2023 Transcribe Orders [facility] [address] [place] [address] Stephanie Henry MD 06/01/2023 Lab Requisition [facility] [phone] Bettie Odell MD from Last 3 Months Family History Medical History Relation Name Comments Heart Disease Father age 75 Cancer-colon Mother 65 Cancer-breast Sister 1 2 episodes Blood Disease Sister 2 splenectomy fo r thrombocytopenia Relation Name Status Comments Father Mother Sister 1 Sister 2 Social History Tobacco Use Types Packs/Day Years Used Date Smoking Tobacco: Every Day Cigarettes 1 25 Smokeless Tobacco: Never Alcohol Use Standard Drinks/Week Comments Yes 1 (1 standard drink = 0.6 oz pur e alcohol) rarely Social Connections Answer Date Recorded Frequency of Communication with Friends and Fami ly Not on file 09/04/2022 Sex and Gender Information Value Date Recorded Sex Assigned at Not on file Gender Identity Not on file Sexual Orientation Not on file Obstetrics History Para Term AB IAB SAB Ectopic Multiple Livin g Live Births 3 2 1 1 1 0 0 1 1 3 Date Outcome GA Total Labor Labor/2nd/3rd Weight Sex Delivery Anes PTL Jillian A1 A5 Name Cl in Ectopic Term Last Filed Vital Signs Vital Sign Reading Time Taken Comments Blood Pressure 122/66 02/10/2023 8:20 AM CDT Pulse 67 02/10/2023 8:20 AM CDT Temperature 36.9 ??C (98.5 ??F) 02/10/2023 8:20 AM CD T Respiratory Rate 16 02/10/2023 8:20 AM CDT Oxygen Saturation 100% 02/10/2023 8:20 AM CDT Inhaled Oxygen Concentration - - Weight 87.1 kg (192 lb 1.6 oz) 02/09/2023 11:15 AM CDT Height 157.5 cm (5' 2) 02/09/2023 11:15 AM CDT Body Mass Index 35.14 02/09/2023 11:15 AM CDT Plan of Treatment Health Maintenance Due Date Last Done Comments Pneumococcal series for age 65+ (1 of 2 - PCV) 02/26/1964 Tdap 1969 Depression screening for age 12+ 1970 HIV for age 15-65 1973 BMI (ht and wt on same day) for age 18+ 02/26/1976 Hepatitis C screening for age 18-79 02/26/1976 Tetanus booster 1978 Pap test for age 21-65 1979 Zoster (shingles) series for age 50+ (1 of 2) 02/26/2008 Mammogram for age 45-75 05/05/2008 05/05/20 07, 06/12/2006, 05/01/2004 Lipids for age 45-75 01/20/2011 01/20/2006, 09/18/2002, 09/18/2002 Colonoscopy through age 75 04/07/2020 04/07/2010, DEXA/DXA scan for age 65+ 2023 COVID-19 vaccine series ( season) 2023 02/10/2022, 07/29/2021 Influenza for age 65+ 02/26/2023 Medical Devices Implanted Type Area Pharmacy Aide Device Identifier Shelf Expiration Date Model / Serial / Lot [id number] 1-4mm 60cc Medtronic Fine Canclls Freeze Dried Implanted:Qty: 1 on 09/08/2022 by Lisa Mccarthy MD at [facility] N/A: Spine Medtronic Spine/Ortho 07/27/2026 [id number] / [id number] / [id number] Matrix 6cc [place] Dbf Putty Dbm Implanted:Qty: 1 on 09/08/2022 by Lisa Mccarthy MD at [facility] N/A: Spine Medtronic Spine/Ortho 08/06/2024 [id number] / [id number] / Spacer Lmbr [id number] [place] Convex Stra Tlif - [id number] Implanted:Qty: 1 on 09/08/2022 by Lisa Mccarthy MD at [facility] N/A: Spine Elmer [employer]omet [id number] / / [id number] Straight Spacer 15h X 30l X 11w Convex Implanted:Qty: 1 on 09/08/2022 by Lisa Mccarthy MD at [facility] N/A: Spine [id number] / / [id number] Description:STRAIGHT SPACER 15H X 30L X 11W CONVEX Harshal Lmbr 65x5.5mm Vitality Cvd Titnm - [id number] Implanted:Qty: 2 on 09/08/2022 by Lisa Mccarthy MD at [facility] N/A: Spine [employer] Spine [id number] 10 / / Set Screw Lmbr 5.5-6mm Vitality Torque - [id number] Implanted:Qty: 6 on 09/08/2022 by Lisa Mccarthy MD at [facility] N/A: Spine [employer] Spine [id number] 01 / / Screw Poly 7.5x50mm Implanted:Qty: 4 on 09/08/2022 by Lisa Mccarthy MD at [facility] N/A: Spine [id number] / / Description:SCREW POLY 7.5X5 0MM Screw Poly 7.5x45mm Implanted:Qty: 2 on 09/08/2022 by Lisa Mccarthy MD at [facility] N/A: Spine [id number] / / Description:SCREW POLY 7.5X4 5MM Screw Poly 7.5 X 45 Implanted:Qty: 2 on 02/09/2023 by Lisa Mccarthy MD at [facility] N/A: Spine [id number] / / Description:SCREW POLY 7.5 X 45 Screw Poly 8.5 X 40 Implanted:Qty: 2 on 02/09/2023 by Lisa Mccarthy MD at [facility] N/A: Spine [id number] / / Description:SCREW POLY 8.5 X 40 Harshal Lmbr 65x5.5mm Vitality Cvd Titnm - [id number] Implanted:Qty: 2 on 02/09/2023 by Lisa Mccarthy MD at [facility] N/A: Spine [employer] Spine 07.94586.0 10 / / Set Screw Lmbr 5.5-6mm Vitality Torque - [id number] Implanted:Qty: 6 on 02/09/2023 by Lisa Mccarthy MD at [facility] N/A: Spine [employer] Spine [id number] 01 / / Bone 1-4mm 30cc Medtronic Chips Canclls Freeze Dried - [id number] Implanted:Qty: 1 on 02/09/2023 by Lisa Mccarthy MD at [facility] Medtronic Spine/Ortho 10/28/2026 [id number] / [id number] / Procedures Procedure Name Priority Date/Time Associated Diagnosis Comments LAB TRACKING EVENT Routine 06/01/2023 8: 00 AM GAS DESULFURIZER PATH TISSUE EXAM Routine 06/01/2023 8:00 AM GAS DESULFURIZER from Last 3 Months Results * LAB TRACKING EVENT (06/01/2023 8:00 AM GAS DESULFURIZER) Other (Other) Client Collect / Unknown 06/01/2023 8:00 AM GAS DESULFURIZER 06/01/2023 8:48 PM GAS DESULFURIZER Bettie Odell MD LAB BILL ONLY [facility] [address] [place] [address], * PATH TISSUE EXAM (06/01/2023 8:00 AM GAS DESULFURIZER) Case Report Pathology Report ?Case: [id number] ? Authorizing Provider: ??Bettei Odell MD ??Collected: ? 06/01/2023 0800 ? Ordering Location: ? [facility] ?Received: ?06/02/2023 1100 ? Pathologist: ? Michael Perez MD ? Specimen: ?Sigmoid Biopsy ? 06/03/2023 4:19 PM GAS DESULFURIZER [facility]AL LABORATORY Final Diagnosis A) COLON, SIGMOID, POLYPECTOMY: 1. Hyperplastic polyp 06/03/2023 4:19 PM [facility] Clinical Information Abdominal pain. Colonoscopy showed a single polyp. 06/03/2023 4:19 PM GAS DESULFURIZER [facility] Gross Description A) Received in formalin is a guillermo mucosal fragment measuring 5 mm in greatest dimension, which is entirely submitted in one cassette. It is labeled with the patient's name and designated sigmoid polyp. Mago Radford 06/02/2023 11:22 AM 06/03/2023 4:19 PM [facility] Microscopic Description The final diagnosis is based on microscopic examination of appropriate sections of all specimens. 06/03/2023 4:19 PM [facility] Additional Information Interpreted at [facility] - [address] [place] [address] 06/03/2023 4:19 PM [facility] LABORAT[facility] Other (Sigmoid Biopsy) 06/01/2023 8:00 AM GAS DESULFURIZER 06/02/2023 11:00 AM GAS DESULFURIZER Bettie Odell MD PATHOLOGY/CYTOLO GY Performing Organization Address City/State/[facility] Co de Phone Number [facility] [address] [place] [address], from Last 3 Months Advance Directives Latest Code Status on File Code Status Date Activated Date Inactivated Comments Full Code 02/09/2023 6:19 PM 02/10/2023 1:51 PM Question Answer Comments Code Status Discussion: Per Existing Order Code Status History Code Status Date Activated Date Inactivated Comments Full Code 09/08/2022 5:39 PM 09/09/2022 7:57 PM Question Answer Comments Code Status Discussion: Unable to Assess Preferences, Provider to review later Full Code 01/08/2016 10:29 AM 01/09/2016 2:48 PM Full Code 01/08/2016 5:30 AM 01/08/2016 10:29 AM Care Teams Pals Specialist Relationship Specialty Start Date End Date Aracely Friedman PCP - General 08/21/22
--- OUTSIDE RECORDS SUMMARY | 2023-07-14 10:01 | XMS_ITS | Referral Summary ---
Author Name Unknown Organization [facility] Address [address] [place] [address] Care Team Providers Care Application Penetration Tester Name Role Phone Jose Amaral Primary Care Provider + [phone] Dino Pretty MD Unavailable [phone] Arnulfo Giron MD Unavailable [phone] Allergies No known active allergies Medications Medication Sig Dispensed Refills Start Date End Date Status aspirin 81 MG EC tablet Take 81 mg by mouth daily 0 Active estradiol (VIVELLE-DOT) 0.05 MG/24HR bi-weekly patch Place 1 patch onto the skin twice a week 0 Active lisinopril-hydrochlorot hiazide (ZESTORETIC) 10-12.5 MG tabletIndications:Benig n essential hypertension Take 1 tablet by mouth daily 90 tablet 3 12/12/2021 Active cyclobenzaprine (FLEXERIL) 10 MG tabletIndications:Lumba r foraminal stenosis Take 1 tablet (10 mg) by mouth daily as needed for muscle spasms 30 tablet 3 12/12/2021 Active rosuvastatin (CRESTOR) 20 MG tabletIndications:Hyper lipidemia, unspecified hyperlipidemia type Take 1 tablet (20 mg) by mouth daily 90 tablet 1 03/25/2022 Active HYDROcodone-acetaminoph en (NORCO) 7.5-325 MG per tabletIndications:Lumba r foraminal stenosis Take 1 tablet by mouth every 4 hours as needed for severe pain 24 tablet 0 04/03/2022 Active Active Problems Problem Noted Date Diagnosed Date Atherosclerosis of aorta (H24) 12/12/2021 History of excision of tariq a of lumbar vertebra for decompression of spinal cord 12/12/2021 History of laparoscopic cholecystectomy 12/13/19 Hyperlipidemia 12/12/2021 Peripheral vascular disease (H24) 12/12/2021 Lung nodule 12/12/2021 Lumbar foraminal stenosis 10/30/2015 History of hysterectomy 05/12/2010 Resolved Problems Problem Noted Date Diagnosed Date Resolved Date Intractable abdominal pain 05/17/2021 0 12/12/2021 Immunizations Name Administration Dates Next Due COVID-19 MONOVALENT 12+ (Pfizer) 07/29/2021,06/28,06/25/2020 Influenza Vaccine >6 months,quad, PF ,03/30/2016,04/17/2015, 009 Influenza Vaccine, 6+MO IM (QUADRIVALENT W/PRESERVATIVES) 03/26/2021 Influenza vaccine ages 6-35 months 03/26/2021 Influenza, Whole Virus 04/25/2014 Influenza, seasonal, injectable, PF 03/17/2012,1 TD,PF 7+ (Tenivac) 12/10/2004 Social History Tobacco Use Types Packs/Day Years Used Date Smoking Tobacco: Every Day Cigarettes Smokeless Tobacco: Never Tobacco Cessation:Counseling Given: Yes Alcohol Use Standard Drinks/Week Comments Yes 0 (1 standard drink = 0.6 oz pur e alcohol) PHQ-2 Answer Date Recorded PHQ-2 Score 0 12/12/2021 Adolescent Education Answer Date Record ed Getting School Help Needed Not on file 03/20 Sex and Gender Information Value Date Recorded Sex Assigned at Not on file Gender Identity Not on file Sexual Orientation Not on file Last Filed Vital Signs Vital Sign Reading Time Taken Comments Blood Pressure 136/60 03/19/2022 3:18 PM CDT Pulse 78 03/19/2022 3:18 PM CDT Temperature 36.5 ??C (97.7 ??F) 05/20/2021 7:59 AM CS T Respiratory Rate 16 03/19/2022 3:18 PM CDT Oxygen Saturation 98% 03/19/2022 3:18 PM CDT Inhaled Oxygen Concentration - - Weight 74.8 kg (165 lb) 03/19/2022 3:18 PM CDT Height 157.5 cm (5' 2) 03/19/2022 3:18 PM CDT Body Mass Index 30.18 03/19/2022 3:18 PM CDT Plan of Treatment Not on file Procedures Procedure Name Priority Date/Time Associated Diagnosis Comments COLONOSCOPY - HIM SCAN 06/01/2023 12:00 AM AUTOMOBILE PARKER from Last 3 Months Results * COLONOSCOPY - HIM SCAN (06/01/2023 12:00 AM AUTOMOBILE PARKER) 06/01/2023 Provider Outside PROCEDURES from Last 3 Months Advance Directives For more information, please contact: [phone] Latest Code Status on File Code Status Date Activated Date Inactivated Comments Full Code 05/20/2021 8:01 AM Question Answer Comments Code status determined by: Discussion wi th patient/ legal decision maker Code Status History Code Status Date Activated Date Inactivated Comments Full Code 05/18/2021 12:06 AM 05/20/2021 8:01 AM Al l basic and advanced life-sustaining interventions are performed as appropriate Question Answer Comments Code status determined by: Discussion with patient/ legal decision maker Care Teams Application Penetration Tester Relationship Specialty Start Date End Date Jose Amaral [address] [address] PCP - General Family Medicine 04/22/21 Dino Pretty MD [address] [place], [place] [address] Assigned PCP 11/19/21 Arnulfo Giron MD [address] [place] [address] Assigned Heart and Vascular Provider 10/31/22
--- OUTSIDE RECORDS SUMMARY | 2023-07-14 10:01 | XMS_ITS | Clinical Summary ---
Author Name Unknown Organization [facility] Address [address] [place] [address] Care Team Providers Care Card Cutter Name Role Phone Jose Amaral Primary Care Provider [phone] Dino Pretty MD Unavailable [phone] Arnulfo Giron MD Unavailable [phone] Allergies No known active allergies Medications Medication [...] injectable, PF 03/17/2012,1 TD,PF 7+ (Tenivac) 12/10/2004 Family History Medical History Relation Comments Colon Cancer Mother age 65 Breast Cancer Sister Dx age 42 i n mid 50s Relation Status Comments Mother Sister Social History Tobacco Use Types Packs/Day Years [...] 03/19/2022 3:18 PM CDT Plan of Treatment Health Maintenance Due Date Last Done Comments ADVANCE CARE PLANNING 1958 CT COLONOGRAPHY 1958 DEXA 1958 FIT 1960 FLEX SIG 1960 MAMMO SCREENING 1960 sDNA (Cologuard) 1960 Pneumococcal Vaccine: 65+ Years (1 of 2 - PCV) 02/26/1964 ZOSTER IMMUNIZATION (1 of 2) 02/26/2008 RSV VACCINE ( & 60+) (1 - 1-dose 60+ series) 2018 LUNG CANCER SCREENING 05/15/2022 05/15/2021 ANNUAL REVIEW OF HM ORDERS 12/12/2022 12/12/2021, FALL RISK ASSESSMENT 2023 MEDICARE ANNUAL WELLNESS VISIT 2023 COVID-19 Vaccine (2022- season) 2023 02/10/2022, 07/29/2021, 07/16/2020, Additional history exists PHQ-2 (once per calendar year) 2023 12/12/2021 LIPID 01/16/2027 01/16/2022, 09/0 06/2020, 10/29/2020 DTAP/TDAP/TD IMMUNIZATION (2 - Td or Tdap) 01/21/2033 01/21/2023, 12/10/2004 COLONOSCOPY 06/01/2033 06/01/2023 COLORECTAL CANCER SCREENING 06/01/2033 HEPATITIS C SCREENING Completed 01/16/2022 HIV SCREENING Completed 01/16/2022 INFLUENZA VACCINE Completed 05/17/2023, , 03/26/2021, Additional history exists HPV IMMUNIZATION Aged Out No longer e ligible based on patient's age to complete this topic IPV IMMUNIZATION Aged Out No longer e ligible based on patient's age to complete this topic MENINGITIS IMMUNIZATION Aged Out No l onger eligible based on patient's age to complete this topic RSV MONOCLONAL ANTIBODY Aged Out No l onger eligible based on patient's age to complete this topic Procedures Procedure Name Priority Date/Time Associated Diagnosis Comments COLONOSCOPY - HIM SCAN 06/01/2023 12:00 AM STUDENT SERVICES DEAN from Last 3 Months Results * COLONOSCOPY - HIM SCAN (06/01/2023 12:00 AM STUDENT SERVICES DEAN) 06/01/2023 Provider Outside PROCEDURES from Last 3 Months Advance Directives For more information, please contact: [phone] Latest Code Status on File Code Status [...] with patient/ legal decision maker Care Teams Card Cutter Relationship Specialty Start Date End Date Jose Amaral [address] [address] PCP - General Family Medicine 04/22/21 Dino Pretty MD [address] [place] [address] Assigned PCP 11/19/21 Arnulfo Giron MD [address] [place] [address] Assigned Heart and Vascular Provider 10/31/22
--- OUTSIDE RECORDS SUMMARY | 2023-07-14 10:01 | XMS_ITS | Clinical Summary ---
Author Name Unknown Organization [facility] Address [address] [place] [address] Care Team Providers Care Funeral Home Associate Name Role Phone Jose Amaral MD Primary Care Provider [phone] Source Comments You are receiving this document as you are listed as the primary care provider,follow-up provider, or the patient has been referred to you for consultation.This is in compliance with the Medicare and[facility] System[facility] EHR Incentive Program,which states Providers who transition their patient to another setting of careor provider of care or refers their patient to another provider of care shouldprovide summary care record for each transition of care or referral. [facility] Active Problems Problem Noted Date Diagnosed Date Lumbar radiculitis 04/04/2020 Social History Tobacco Use Types Packs/Day Years Used Date Smoking Tobacco: Never Assessed Sex and Gender Information Value Date Recorded Sex Assigned at Not on file Gender Identity Not on file Sexual Orientation Not on file Plan of Treatment Health Maintenance Due Date Last Done Comments Cervical Cancer Screening Due 1960 Colon Cancer Screening Plan Due 1960 Hep C Screening (Preventive Services) 1960 Mammogram 1960 COVID-19 Vaccine (#1) 1958 Adult Preventive Visit 02/26/1976 DTaP/Tdap/Td (1 - Tdap) 1977 Cholesterol 2003 Zoster/Shingles (1 of 2) 02/26/2008 Pneumococcal 65+ Yrs (1 - PCV) 2023 Influenza (#1) 2023 03/13/2019, 03/29, 04/25/2014, Additional history exists HepA Aged Out No longer eligi ble based on patient's age to complete this topic HepB Aged Out No longer eligi ble based on patient's age to complete this topic Hib Aged Out No longer eligi ble based on patient's age to complete this topic IPV (Polio) Aged Out No longer eligi ble based on patient's age to complete this topic MCV4 Aged Out No longer eligi ble based on patient's age to complete this topic Care Teams Funeral Home Associate Relationship Specialty Start Date End Date Jose Amaral MD [address] [place], [place] [id number] PCP - General Family Practice 03/20/20
--- OUTSIDE RECORDS SUMMARY | 2023-07-14 10:01 | XMS_ITS | Encounter Summary ---
Author Name Unknown Organization [facility] Address [address] [place] [address] Care Team Providers Care Radar Systems Engineer Name Role Phone Cristin, Jose Angel Primary Care Provider + [phone] Shade Conteh MD Unavailable +- [phone] Dino Pretty MD Unavailable [phone] Dino Pretty MD Unavailable [phone] Arnulfo Giron MD Unavailable [phone] Reason for Visit * Reason Onset Date Comments Refill Request 01/11/2022 Encounter Details Date Type Department Care Team (Late st Contact Info) Description 01/11/2022 MyC Refill [address] [place] [address] Dino Pretty MD [address] [place] [address] Refill Request Social History Tobacco Use Types Packs/Day Years Used Date Smoking Tobacco: Every Day Cigarettes Smokeless Tobacco: Never Alcohol Use Standard Drinks/Week Comments Yes 0 (1 standard drink = 0.6 oz pur e alcohol) PHQ-2 Answer Date Recorded PHQ-2 Score 0 12/12/2021 Sex and Gender Information Value Date Recorded Sex Assigned at Not on file Gender Identity Not on file Sexual Orientation Not on file COVID-19 Exposure Response Date Recorded In the last 10 days, have yo u been in contact with someone who was confirmed or suspected to have Coronavirus/COVID-19? No / Unsure 12/12/2021 2:51 PM CDT documented as of this encounter Miscellaneous Notes * Telephone Encounter - Amanda Watson RN - 01/12/2022 7:31 PM CDT Please see message below and advise documented in this encounter Plan of Treatment Not on file documented as of this encounter Visit Diagnoses Diagnosis Lumbar foraminal stenosis Spinal stenosis, lumbar region, without neurogenic claudication documented in this encounter Care Teams Radar Systems Engineer Relationship Specialty Start Date End Date Jose Amaral [address] [address] PCP - General Family Medicine 04/22/21 Shade Conteh MD [address] [place] [address] Assigned Heart and Vascular Provider 04/27/21 10/30/22 Dino Pretty MD [address] [place] [address] Assigned PCP 11/19/21 Dino Pretty MD [address] [place] [address] Assigned Pain Medication Provider 07/06/22 12/25/22 Arnulfo Giron MD [address] [place] [address] Assigned Heart and Vascular Provider 10/31/22 documented as of this encounter
--- OUTSIDE RECORDS SUMMARY | 2023-07-14 10:01 | XMS_ITS | Encounter Summary ---
Author Name Unknown Organization [facility] Address [address] [place] [address] Care Team Providers Care Ssrs Report Developer Name Role Phone Cristin, Jose Angel Primary Care Provider + [phone] Shade Conteh MD Unavailable +- [phone] Dino Pretty MD Unavailable Dino Pretty MD Unavailable [phone] Arnulfo Giron MD Unavailable [phone] Encounter Details Date Type Department Care Team (Late st Contact Info) Description 12/24/2021 MyC Medical Advice [address] [place] [address] Dino Pretty MD [address] [place] [address] Social History Tobacco Use Types Packs/Day Years [...] PM CDT documented as of this encounter Plan of Treatment Not on file documented as of this encounter Visit Diagnoses Not on filedocumented in this encounter Care Teams Ssrs Report Developer Relationship Specialty Start Date End Date Jose Amaral Jeanne [address] [address] PCP - General Family Medicine 04/22/21 Shade Conteh MD [address] [place] [address] Assigned Heart and Vascular Provider 04/27/21 10/30/22 Dino Pretty MD [address] [place] [address] Assigned PCP 11/19/21 Dino Pretty MD [address] [place] [address] Assigned Pain Medication Provider 07/06/22 12/25/22 Arnulfo Giron MD [address] [place] [address] Assigned Heart and Vascular Provider 10/31/22 documented as of this encounter
--- OUTSIDE RECORDS SUMMARY | 2023-07-14 10:01 | XMS_ITS | Encounter Summary ---
Author Name Unknown Organization [facility] Address [address] [place] [address]. [place] [address] Care Team Providers Care Hoop Rolls Operator Name Role Phone Jose Amaral Primary Care Provider + [phone] Shade Conteh MD Unavailable +- [phone] Dino Pretty MD Unavailable [phone] Dino Pretty MD Unavailable [phone] Arnulfo Giron MD Unavailable [phone] Encounter Details Date Type Department Care Team (Late st Contact Info) Description 12/12/2020 External Order Results [facility] [address] [place] [address] Outside, Provider Social History Tobacco Use Types Packs/Day Years Used Date Smoking Tobacco: Never Assessed Sex and Gender Information Value Date Recorded Sex Assigned at Not on file Gender Identity Not on file Sexual Orientation Not on file documented as of this encounter Plan of Treatment Not on file documented as of this encounter Procedures Procedure Name Priority Date/Time Associated Diagnosis Comments COVID-19 VIRUS (CORONAVIRUS) BY PCR (EXTERNAL RESULT) Routine 12/12/2020 10:52 AM CDT documented in this encounter Results * COVID-19 Virus (Coronavirus) by PCR (External Result) (12/12/2020 10:52 AM CDT) COVID-19 Virus by PCR (External Result) NEG NEG NON-INTERFACED (ONBASE SCANS) 12/12/2020 10:5 2 AM CDT Narrative ELISABETH PFT - 04/03/2021 1:44 PM CDT Verified by Diego Casillas on 04/03/2021. Patient Reported LABORATORY ELISABETH PFT NON-INTERFACED (ONBASE SCANS) documented in this encounter Visit Diagnoses Not on filedocumented in this encounter Care Teams Hoop Rolls Operator Relationship Specialty Start Date End Date Tyrone Amaralolathad Angel [address] [address] PCP - General Family Medicine 04/22/21 Shade Conteh MD [address] [place] [address] Assigned Heart and Vascular Provider 04/27/21 10/30/22 Dino Pretty MD [address] [place] [address] Assigned PCP 11/19/21 Dino Pretty MD [address] [place] [address] Assigned Pain Medication Provider 07/06/22 12/25/22 Arnulfo Giron MD [address] [place] [id number] Assigned Heart and Vascular Provider 10/31/22 documented as of this encounter
--- OUTSIDE RECORDS SUMMARY | 2023-07-14 10:01 | XMS_ITS | Continuity of Care Document ---
Author Name Unknown Organization [facility] Address [address] [place] [address] Phone Care Team Providers Care Senior Accountant Cpa Name Role Phone Brown Jorge SMITH Unavailable [...] Lumbar ( Stenosis) Reinsertion of Instrumentation - ME PSF, Lumbar PSF - Additional Level(s) Lami, [...] [facility], [address], [place], [id number] , [place] tel: [phone] [facility] No Information 3 Brown Jorge. [address] [place] [address], [place], [id number] , [place]. [phone] Referring Provider: Rudi Mcneil, [facility] & [address], [place], [address]. tel:[phone] [facility], [address], [place], [id number] , [place] tel: [phone] [facility] No Information Feb-2 3 Mehbod Amir. [facility], [address] [place] [address] [address], [place], [id number] , [place]. tel: [phone] [facility], [address], [place], [id number] , [place] tel: [phone] [facility] Encounter for other specified surgical aftercare Sep- 3 Mehbod Amir. [facility], [address] [place] [address] [address], [place], [address] , [place]. tel: [phone] Referring Provider: Rudi Mcneil, [facility] & [address], [address]. [phone] [facility], [address], [place], [id number] , [place] tel: [phone] [facility] No Information Feb-0 3 Mehbod Amir. [facility], [address] [place] [address] [address], [place], [id number] , [place]. tel: [phone] [facility], [address], [place], [address] , [place] tel: [phone] [facility] No Information Jan- 3 Elder Angulo . [facility], [address] [place] [address] [address], [place], [address], [place]. tel: [phone] Referring Provider: Rudi Mcneil, [facility] & [address], [address]. tel:[phone] [facility], [address], [place], [address] , [place] tel: [phone] [facility] No Information 3 Mehbod Amir. [facility], [address] [place] [address] [address], [place], [address] , [place]. tel: [phone] [facility], [address], [place], [address] , [place] tel: [phone] [facility] No Information 3 Mehbod Amir. [facility], [address], [place], [id number] , [place]. tel: [phone] Referring Provider: Rudi Mcneil, [facility] & [address], [address]. tel:[phone] [facility], [address], [place], [id number] , [place] tel: [phone] [facility] No Information 3 Mehbod Amir. [facility], [address] [place] [address] [address], [place], [id number] , [place]. tel: [phone] Physician Telephone Evaluation 5-10 Min [facility], [address], [place], [id number] , [place] tel: [phone] [facility] No Information 3 Mehbod Amir. [facility], [address] [place] [address] [address], [place], [id number] , [place]. tel: [phone] Referring Provider: Rudi Mcneil, [facility] & [address], [address]. tel:[phone] [facility], [address], [place], [id number] , [place] tel: [phone] [facility] No Information 3 Mehbod Amir. [facility], [address] [place] [address] [address], [place], [id number] , [place]. tel: [phone] [facility], [address], [place], [id number] , [place] tel: [phone] [facility] No Information 3 Mehbod Amir. [facility], [address] [place] [address] [address], [place], [id number] , [place]. tel: [phone] [facility], [address], [place], [address] , [place] tel:[phone] [facility] No Information 3 Eckroth Jorge. [address], [place], [address] , [place]. tel: [phone] [facility], [address], [place], [address] , [place] tel:[phone] [facility] No Information 3 Mehbod Amir. [facility], [address] [place] [address] 600, [place], [address] , [place]. tel:[phone] Referring Provider: Rudi Mcneil, [facility] & [address], [address]. tel:[phone] [facility], [address], [place], [address] , [place] tel:[phone] [facility] No Information 3 Mehbod Amir. [facility], [address] [place] [address] 600, [place], [address] , [place]. tel: [phone] [facility], [address], [place], [address] , [place] tel: [facility] No Information 0 3 Mehbod Amir. [facility], [address], [place], [address] , [place]. tel: [phone] [facility], [address], [place], [address] , [place] tel: [facility] No Information 3 Mehbod Amir. [facility], [address], [place], [address] , [place]. tel: [phone] [facility], [address], [place], [address] , [place] tel: [facility] No Information 3 Mehbod Amir. [facility], [address] [place] [address], [facility] [place], [address] , [place]. tel: [phone] [facility], [address], [facility] [place], [address] , [place] tel: [phone] [facility] No Information 3 Mehbod Amir. [facility], [address], [facility] [place], [address] , [place]. tel: [phone] Referring Provider: Primary Care Doctor No. [facility], [address], [facility] [place], [address] , [place] tel: [phone] [facility] No Information 3 Eckroth Jorge. [address] [place] [address], [facility] [place], [address] , [place]. tel: [phone] Referring Provider: Rudi Mcneil, [facility] & [address], [address]. tel:[phone] [facility], [address], [facility] [place], [address] , [place] tel: [phone] [facility] No Information 3 Mehbod Amir. [facility], [address] [place] [address] 600, [place], [place], [address] , [place]. tel: [phone] Ref[facility]: [facility] & [address], [address]. tel:[phone] Office/Outpat ient Visit,New, Mod [facility], [address], [facility] [place], [address] , [place] tel: [phone] [facility] Spinal stenosis, lumbar region with neurogenic claudication Fe 3 Mehbod Amir. [facility], [address], [facility], [place], [id number] , [place]. tel: [phone] Referring Provider: Rudi Mcneil, [facility] [address] [facility], [place], [address]. tel:[phone] Office/Outpat ient Visit,Est, Mod [facility], [address], [place], [place], [address] , [place] tel: [phone] [facility] Spinal stenosis, lumbar region 2 6 Mehbod AmirNahomy [facility], [address] [place] [address] 600, [place], [place], [address] , [place]. tel: [phone] Referring Provider: Lisa Mccarthy, [facility] [place] [address], [place], [address]. tel:[phone] [facility], [address], [place], [place], [address] , [place] tel: [phone] [facility] Spinal stenosis, lumbar region [phone] Eckroth Jorge. [address] [place] [address], [place], [place], [address] , [place]. tel: [phone] Referring Provider: Lisa Mccarthy, [facility] [place] [address], [place], [address]. tel:[phone] [facility], [address], [place], [place], [address] , [place] tel: [phone] [facility] [place] Other intervertebral disc degeneration, thoracolumbar regionSpinal stenosis, lumbar region 2201 6 Mehbod AmirNahomy [facility], [address], [place], [place], [address] , [place]. tel: [phone] Referring Provider: Lisa Mccarthy, [facility] [address], [place], [address]. tel:[phone] [facility], [address], [place], [place], [address] , [place] tel: [phone] [facility] No Information 3201 6 Mehbod [facility], [address], [place], [place], [address] , [place]. tel:[phone] Referring Provider: Lisa Mccarthy, [facility] [address], [place], [address]. tel:[phone] Office/Outpat ient Visit,New, Mod [facility], [address], [place], [place], [address] , [place] [phone] [facility] Other intervertebral disc degeneration, thoracolumbar regionSpinal stenosis, lumbar region 6 Mehbod [facility], [address], [place], [place], [address] , [place]. [phone] Referring Provider: Jewel Gerard, [facility] [address] [place], [address]. tel:[phone] Family History Family Member Type Diagnosis Age At Onset No Information Payers Payer name Insurance type Covered green party ID Authoriza tion(s) [place] [id number] [facility] [place] [id number] [facility] [id number] Social History Type Description Quantity Date Captured [...]
--- OUTSIDE RECORDS SUMMARY | 2023-07-14 10:01 | XMS_ITS | Encounter Summary ---
Author Name Unknown Organization [facility] Address [address] [place] [address] Care Team Providers Care Blast Furnace Auxiliaries Supervisor Name Role Phone Cristin, Jose Angel Primary Care Provider + [phone] Shade Conteh MD Unavailable +- [phone] Dino Pretty MD Unavailable [phone] Dino Pretty MD Unavailable [phone] Arnulfo Giron MD Unavailable [phone] Reason for Visit * Reason Onset Date Comments Refill Request 03/09/2022 Encounter Details Date Type Department Care Team (Late st Contact Info) Description 03/09/2022 MyC Refill [address] [place] [address] Dino Pretty MD [address] [place] [address] Refill Request Social History Tobacco [...] suspected to have Coronavirus/COVID-19? No / Unsure 03/12/2022 1:56 PM CDT documented as of this encounter Plan of Treatment Not on file documented as of this encounter Visit Diagnoses Diagnosis Lumbar foraminal stenosis Spinal stenosis, lumbar region, without neurogenic claudication documented in this encounter Care Teams Bl[employer] Furnace Auxili[employer] Supervisor Relationship Specialty Start Date End Date Jose Amaral [address] [address] PCP - General Family Medicine 04/22/21 Shade Conteh MD [address] [place] [address] Assigned Heart and Vascular Provider 04/27/21 10/30/22 Dino Pretty MD [address] [place], [place] [address] Assigned PCP 11/19/21 Dino Pretty MD [address] [place] [address] Assigned Pain Medication Provider 07/06/22 12/25/22 Arnulfo Giron MD [address] [address] Assigned Heart and Vascular Provider 10/31/22 documented as of this encounter
--- NOTE | 2023-07-14 10:15 | CRLHL7_ITS ---
For Patients: As a result of the Century Cures Act, medical imaging exams and procedure reports are released immediately into your electronic medical record. You may view this report before your referring provider. If you have questions, please contact your health care provider. BILATERAL SCREENING MAMMOGRAM WITH COMPUTER-AIDED DETECTION AND TOMOSYNTHESIS TECHNIQUE: CC and MLO views were obtained. These mammographic images have been obtained using full-field digital technique. These mammographic images were interpreted with the benefit of computer-aided detection. Breast Tomosynthesis was used in this interpretation. COMPARISON FILM: 03/24/19, 05/27/16, 04/25/15. FINDINGS: The breasts are heterogeneously dense, which may obscure small masses IMPRESSION: There is no radiographic evidence for malignancy. ASSESSMENT: BI-RADS Category 2: Benign RECOMMENDATION: Routine screening mammogram in 1 year. A lay language report of this examination will be provided to the patient. Isai Martell M.D. Diagnostic Radiologist [email or web address] SP/Dictated by: Isai Martell MD @ 07/16/2023 12:00:00 PM (Electronically Signed)
== END 2023-07-14 09:59 | disposition home or self-care (01) ==
LOC: MAMMO 09:59
PROVIDERS: PCP Family Medicine; Visit Provider Family Medicine
DX: Z12.31 Encounter for screening mammogram for malignant neoplasm of breast (principal); R92.2 Inconclusive mammogram
CPT/HCPCS: 77063; 77067

== ENCOUNTER 2023-12-29 14:01 | Outpatient (CLI) | payer MEDICARE, BC, SELFPAY ==
--- OUTSIDE RECORDS SUMMARY | 2023-12-29 14:06 | XMS_ITS | Continuity of Care Document ---
Author Organization [facility] Address [address] [place] [address] Phone Care Team Providers Care Sulky Driver Name Role Phone Shari MCCLELLAND, Lisa Unavailable [...] Not Available - Active Procedures Procedure Date Office/Outpatient Visit,Est, Mod 2023 X-Ray Exam Lower Spine 2-3 Views 2023 POSTOP FOLLOW-UP VISIT Telephone 2022 Postop Followup Visit PSF, Lumbar - PA PSF - Additional Level(s) - PA Lami, Facetectomy/Foraminotomy, Lumbar ( Stenosis) Reinsertion of Instrumentation - PA PSF, Lumbar PSF - Additional Level(s) Lami, [...] Diagnoses Date Provider Providers Copied on Encounter Office/Outpat ient Visit,Est, Mod [facility], [address], [place], [id number] , [place] tel: [phone] [facility] Spinal stenosis, lumbar region with neurogenic claudication 4 Shari Lagos [facility], [address], [place], [id number] , [place]. tel:[phone] Referring Provider: Rudi Mcneil[address], [address]. tel:[phone] [facility], [address], [place], [place], [id number] , [place] tel: [phone] [facility] No Information 3 Brown Patel. [address] [place] [address] 600, [place], [address] , [place]. tel: [phone] Referring Provider: Rudi Mcneil, [facility] & [address], [address]. tel:[phone] [facility], [address], [place], [address] , [place] tel: [phone] [facility] No Information Feb- 3 Mehbod Amir. [facility], [address] [place] [address] 600, [facility], [id number] , [place]. tel: [phone] [facility], [address], [place], [address] , [place] tel: [phone] [facility] Encounter for other specified surgical aftercare 3 Mehbod Amir. [facility], [address] [place] [address] 600, [facility] [place], [address] , [place]. tel: [phone] Ref[facility]: [facility] & [address], [address]. tel:[phone] [facility], [address], [place], [address] , [place] tel: [phone] [facility] No Information Feb-0 3 Mehbod Amir. [facility], [address] [place] [address] 600, [facility] [place], [address] , [place]. tel: [phone] [facility], [address], [place], [address] , [place] tel: [phone] [facility] No Information 3 Elder Angulo . [facility], [address] [place] [address] [address], [place], [address], [place]. tel: [phone] Referring Provider: Rudi Mcneil, [facility] & [address], [address]. tel:[phone] [facility], [address], [place], [address] , [place] tel: [phone] [facility] No Information 3 Mehbod Amir. [facility], [address] [place] [address] [address], [facility], [address] , [place]. tel: [phone] [facility], [address], [place], [address] , [place] tel: [phone] [facility] No Information 3 Mehbod Amir. [facility], [address] [place] [address] [address], [facility], [address] , [place]. tel: [phone] Referring Provider: Rudi Mcneil, [facility] & [address], [address]. tel:[phone] [facility], [address], [place], [address] , [place] tel: [phone] [facility] No Information 3 Mehbod Amir. [facility], [address] [place] [address] [address], [facility], [address] , [place]. tel: [phone] Physician Telephone Evaluation 5-10 Min [facility], [address], [place], [address] , [place] tel: [phone] [facility] No Information 3 Mehbod Amir. [facility], [address] [place] [address] [address], [facility], [address] , [place]. tel: [phone] Referring Provider: Rudi Mcneil, [facility] & [address], [address]. tel:[phone] [facility], [address], [place], [address] , [place] tel:[phone] [facility] No Information 3 Mehbod Amir. [facility], [address], [place], [address] , [place]. tel: [phone] [facility], [address], [place], [address] , [place] tel: [phone] [facility] No Information October-0 3 Mehbod Amir. [facility], [address], [place], [address] , [place]. tel: [phone] [facility], [address], [place], [address] , [place] tel:[phone] [facility] No Information October-0 3 Eckroth Jorge. [address] [place] [address] 600, [place], [address] , [place]. tel: [phone] [facility], [address], [place], [address] , [place] tel:[phone] [facility] No Information 3 Mehbod Amir. [facility], [address], [place], [address] , [place]. tel: [phone] Referring Provider: Rudi Mcneil, [facility] & [address], [address]. tel:[phone] [facility], [address], [place], [address] , [place] tel: [phone] [facility] No Information 3 Mehbod Amir. [facility], [address], [place], [address] , [place]. tel: [phone] [facility], [address], [place], [address] , [place] tel: [phone] [facility] No Information Apr-0 - 3 Mehbod Amir. [facility], [address] [place] [address] [address], [place], [place], [address] , [place]. tel: [phone] [facility], [address], [place], [address] , [place] tel:[phone] [facility] No Information Aug-3 - 3 Mehbod Amir. [facility], [address], [place], [address] , [place]. tel: [phone] [facility], [address], [place], [address] , [place] tel:[phone] [facility] No Information Aug-2 3 Mehbod Amir. [facility], [address] [place] [address] 600, [place], [address] , [place]. tel: [phone] [facility], [address], [place], [address] , [place] tel:[phone] [facility] No Information Aug-2 3 Mehbod Amir. [facility], [address] [place] [address] 600, [place], [address] , [place]. tel: [phone] Referring Provider: Primary Care Doctor No. [facility], [address], [place], [address] , [place] tel: [phone] [facility] No Information Aug- 3 Eckroth Jorge. [address], [place], [address] , [place]. tel: [phone] Referring Provider: Rudi Mcneil, [facility] & [address], [place], [address]. tel:[phone] [facility], [address], [place], [address] , [place] tel: [phone] [facility] No Information Aug- 4- 3 Mehbod Amir. [facility], [address] [place] [address] 600, [place], [place], [address] , [place]. tel: [phone] Referring Provider: Rudi Mcneil, [facility] & [address], [address]. tel:[phone] Office/Outpat ient Visit,New, Mod [facility], [address], [place], [place], [address] , [place] tel: [phone] [facility] Spinal stenosis, lumbar region with neurogenic claudication 3 Mehbrod Lagos [facility], [address] [place] [address] 600, [place], [place], [address] , [place]. tel: [phone] Referring Provider: Rudi Mcneil, [facility] & [address], [address]. tel:[phone] Office/Outpat ient Visit,Est, Mod [facility], [address], [place], [place], [address] , [place] tel: [phone] [facility] Spinal stenosis, lumbar region 2201 6 Mehbod [facility], [address] [place] [address], [place], [place], [address] , [place]. tel: [phone] Referring Provider: Lsia Mccarthy, [facility] [place] [address], [place], [address]. tel:[phone] [facility], [address], [place], [place], [address] , [place] tel: [phone] [facility] Spinal stenosis, lumbar region 0-201 6 Eckroth Jorge. [address] [place] [address] 600, [place], [place], [address] , [place]. tel: [phone] Referring Provider: Lisa Mccarthy, [facility] [address] [place] [address], [place], [address]. tel:[phone] [facility], [address], [place], [address] , [phone] [facility] [place] Other intervertebral disc degeneration, thoracolumbar regionSpinal stenosis, lumbar region 2201 6 Mehbod Amir. [facility], [address], [place], [place], [address] , [place]. [phone] Referring Provider: Lisa Mccarthy, [facility] [address], [place], [address]. tel:-[phone] [facility], [address], [place], [place], [address] , [place] tel:[phone] [facility] No Information 6 Mehbod Amir. [facility], [address] [place] [address] [address], [place], [place], [address] , [place]. tel:[phone] Referring Provider: Lisa Mccarthy, [facility] [address] Suite [facility], [place], [address]. [phone] Office/Outpat ient Visit,[facility], [facility], [address], [place], [place], [address] , [place] [phone] [facility] [place] Other intervertebral disc degeneration, thoracolumbar regionSpinal stenosis, lumbar region Nov- 9201 6 Mehbod Amir. [facility], [address] [place] [address] [address], [place], [place], [address] , [place]. [phone] Referring Provider: Jewel Roblero, [address], [place], [address]. tel:[phone] Family History Family Member Type Diagnosis Age At Onset No Information Payers Payer name Insurance type Covered constitution party ID Betty pratt(s) Medicare [place] [id number] [facility] [address] [facility] [id number] Social History Type Description Quantity Date Captured [...]
--- OUTSIDE RECORDS SUMMARY | 2023-12-29 14:06 | XMS_ITS | Encounter Summary ---
Author Organization [facility] Address [address] [place] [address] Care Team Providers Care [facility] Assistant Name Role Phone Cristin, Jose W Primary Care Provider + [phone] Shade Conteh MD Unavailable [phone] Dino Pretty MD Unavailable Dino Pretty MD Unavailable [phone] Arnulfo Giron MD Unavailable [phone] Encounter Details Date Type Department Care Team (Late st Contact Info) Description 12/24/2021 [facility] Medical Advice [address] [place] [address] Dino Pretty MD [address] [place] [address] Social History Tobacco Use Types [...] on filedocumented in this encounter Care Teams Health Center Assistant Relationship Specialty Start Date End Date CristinJose birch [address] [address] PCP - General Family Medicine 04/22/21 Shade Conteh MD [address] [place] [address] Assigned Heart and Vascular Provider 04/27/21 10/30/22 Dino Pretty MD [address] [place] [address] Assigned PCP 11/19/21 Dino Pretty MD [address] [place] [address] Assigned Pain Medication Provider 07/06/22 12/25/22 Arnulfo Giron MD [address] [place] [address] Assigned Heart and Vascular Provider 10/31/22 09/17/23 documented as of this encounter
--- OUTSIDE RECORDS SUMMARY | 2023-12-29 14:06 | XMS_ITS | Clinical Summary ---
Author Organization [facility] Address [address] [place] [address] Care Team Providers Care Sole Edge Inker Machine Name Role Phone Jose Amaral Primary Care Provider + [phone] Dino Pretty MD Unavailable [phone] Allergies No known active allergies Medications Medication Sig Dispensed Refills Start Date End Date Status aspirin 81 MG EC tablet Take 81 mg by mouth daily Active estradiol (VIVELLE-DOT) 0.05 MG/24HR bi-weekly patch Place 1 patch onto the skin twice a week Active lisinopril-hydrochlorot hiazide (ZESTORETIC) 10-12.5 MG tabletIndications:Benig [...] as needed for severe pain 24 tablet 04/03/2022 Active Active Problems Problem Noted Date Diagnosed Date Atherosclerosis of aorta (H24) 12/12/2021 History of excision of tariq a of lumbar vertebra for decompression of spinal cord 12/12/2021 History of laparoscopic cholecystectomy 12/13/19 22 Hyperlipidemia 12/12/2021 Peripheral vascular disease (H24) 12/12/2021 [...] ANNUAL REVIEW OF HM ORDERS 12/12/2022 12/12/2021, LIPID 01/16/2023 01/16/2022, 09/0 06/2020, 10/29/2020 FALL RISK ASSESSMENT 2023 MEDICARE ANNUAL WELLNESS VISIT 2023 COVID-19 Vaccine (2022- season) 2023 02/10/2022, 07/29/2021, 07/16/2020, Additional history exists PHQ-2 (once per calendar year) 2023 12/12/2021 GLUCOSE 01/16/2025 01/16/2022, 04/29, 05/18/2021, Additional history exists DTAP/TDAP/TD IMMUNIZATION (2 - Td or Tdap) [...] COLONOSCOPY - HIM SCAN 06/01/2023 12:00 AM SAFETY ENGINEER COMPREHENSIVE METABOLIC PANEL Routine 01/16/2022 10:38 AM CDT Hyperlipidemia, unspecified hyperlipidemia type HIV ANTIGEN ANTIBODY COMBO Routine 01/16/2022 10:38 AM CDT Screening for HIV (human immunodeficiency virus) HEPATITIS C SCREEN REFLEX TO HCV RNA QUANT AND GENOTYPE Routine 01/16/2022 10:38 AM CDT Need for hepatitis C screening test LIPID REFLEX TO DIRECT LDL PANEL Routine 01/16/2022 10:38 AM CDT Hyperlipidemia, unspecified hyperlipidemia type CTA CHEST ABDOMEN PELVIS RUNOFF W CONTRAST Routine 05/15/2021 10:17 AM SAFETY ENGINEER Atherosclerosis of aorta (H) from Last 3 Months or Most Recently Relevant to Health Maintenance Results * COLONOSCOPY - HIM SCAN (06/01/2023 12:00 AM SAFETY ENGINEER) 06/01/2023 Provider Outside PROCEDURES * HIV Antigen Antibody Combo (01/16/2022 10:38 AM CDT) HIV Antigen Antibody Combo Nonreactive Nonreactive 01/19/2022 1:16 PM CDT [facility] DO Comment:HIV-1 p24 Ag & HIV-1 /HIV-2 Ab Not Detected Blood VENOUS BLOOD / Unknown Venipuncture / Unknown 01/16/2022 10:38 AM CDT 01/16/2022 10:38 AM CDT Dino Pretty MD LAB - BLOOD ORDRoque RUIZ [facility] [address] [facility] [address], Room [address] [phone] * Hepatitis C Screen Reflex to HCV RNA Quant and Genotype (01/16/2022 10:38 AM CDT) Hepatitis C Antibody Nonreactive Nonreactive 01/19/2022 1:16 PM CDT [facility] DO Blood VENOUS BLOOD / Unknown Venipuncture / Unknown 01/16/2022 10:38 AM CDT 01/16/2022 10:38 AM CDT Narrative [facility] - 01/19/2022 1:16 PM CDT Assay performance characteristics have not been established for newborns, infants, and children. Dino Pretty MD LAB - BLOOD ORDE SARA [facility]Prot[facility]Endo 500 [facility], Room [address] [phone] * Lipid panel reflex to direct LDL Fasting (01/16/2022 10:38 AM CDT) Cholesterol 116 <200 mg/dL 01/17/2022 11:58 AM CDT [facility] Triglycerides 52 <150 mg/dL 01/17/2022 11:58 AM CDT [facility] Direct Measure HDL 50 >=50 mg/dL 2021 11:58 AM CDT [facility] LDL Cholesterol Calculated 56 <=100 mg/dL 01/17/2022 11:58 AM CDT [facility] Non HDL Cholesterol 66 <130 mg/dL 01/17/2022 11:58 AM CDT [facility] Patient Fasting > 8hrs? Yes 01/17/2022 11:58 AM CDT [facility] Blood VENOUS BLOOD / Unknown Venipuncture / Unknown 01/16/2022 10:38 AM CDT 01/16/2022 10:38 AM CDT Narrative [facility] - 01/17/2022 11:58 AM CDT Cholesterol Desirable: ??<200 mg/dL Triglycerides Normal: ??Less than 150 mg/dL Borderline High: ??150-199 mg/dL High: ??200-499 mg/dL Very High: ??Greater than or equal to 500 mg/dL Direct Measure HDL Female: ??Greater than or equal to 50 mg/dL Male: ??Greater than or equal to 40 mg/dL LDL Cholesterol Desirable: ??<100mg/dL Above Desirable: ??100-129 mg/dL Borderline High: ??130-159 mg/dL High: ??160-189 mg/dL Very High: ??>= 190 mg/dL Non HDL Cholesterol Desirable: ??130 mg/dL Above Desirable: ??130-159 mg/dL Borderline High: ??160-189 mg/dL High: ??190-219 mg/dL Very High: ??Greater than or equal to 220 mg/dL Dino Pretty MD LAB - BLOOD SUNE SARA [facility] [address] Lab (no room number, 1st floor of clinic) [place] [address], [facility] [phone] * (ABNORMAL) Comprehensive metabolic panel (BMP + Alb, Alk Phos, ALT, AST, Total. Bili, TP) (01/16/2022 10:38 AM CDT) Sodium 139 133 - 144 mmol/L 01/17/2022 11:58 AM CDT [facility] Potassium 3.9 3.4 - 5.3 mmol/L 01/17/2022 11:58 AM CDT [facility] Chloride 105 94 - 109 mmol/L 01/17/2022 11:58 AM CDT [facility] Carbon Dioxide (CO2) 25 20 - 32 mmol/L 01/17/2022 11:58 AM CDT [facility] Anion Gap 9 3 - 14 mmol/L 01/17/2022 11:58 AM CDT [facility] Urea Nitrogen 15 7 - 30 mg/dL 01/17/2022 11:58 AM CDT [facility] Creatinine 0.63 0.52 - 1.04 mg/dL 01/17/2022 11:58 AM CDT [facility] Calcium 9.1 8.5 - 10.1 mg/dL 01/17/2022 11:58 AM CDT [facility] Glucose 102(H) 70 - 99 mg/dL 01/17/2022 11:58 AM CDT [facility] Alkaline Phosphatase 73 40 - 150 U/L 01/17/2022 11:58 AM CDT [facility] AST 14 0 - 45 U/L 01/17/2022 11:58 AM CDT [facility] ALT 16 0 - 50 U/L 01/17/2022 11:58 AM CDT [facility] Protein Total 6.8 6.8 - 8.8 g/dL 01/17/2022 11:58 AM CDT [facility] Albumin 3.6 3.4 - 5.0 g/dL 01/17/2022 11:58 AM CDT [facility] Bilirubin Total 0.3 0.2 - 1.3 mg/dL 01/17/2022 11:58 AM CDT [facility] GFR Estimate >90 >60 mL/min/1.7 3m2 01/17/2022 11:58 AM CDT [facility] Comment:Effective May 292020 eGFRcr in adults is calculated using the 2020 CKD-EPI creatinine equation which includes age and gender (Edward et al., NEJ, DOI: 10.1056/RAWGam1879549) Blood VENOUS BLOOD / Unknown Venipuncture / Unknown 01/16/2022 10:38 AM CDT 01/16/2022 10:38 AM CDT Dino Pretty MD LAB - BLOOD ORDE SARA [facility] Organization Address City/State/ZIP Co de Phone Number [facility] [address] Lab (no room number, 1st floor of clinic) [place] [address], [facility] [phone] * CTA Chest Abdomen Pelvis Runoff w Contrast (05/15/2021 10:17 AM SAFETY ENGINEER) Anatomical Region Laterality Modality Abdomen/Pelvis, SUBRAD IR MA KENDALL, UMP CT CTA, RAD CT Computed Tomography Impressions 05/16/2021 3:46 PM SAFETY ENGINEER IMPRESSION: 1. Significant atherosclerotic disease throughout the thoracoabdominal aorta without evidence of aneurysm, stenosis or dissection. 2. Focal severe stenosis of the origin of the left common carotid artery and left subclavian arteries. 3. Mild multifocal stenosis throughout the bilateral common iliac arteries. 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 Severe stenosis at the origin of the right internal iliac artery. Bilateral external iliac arteries are patent. 4. Right lower extremity: Vessels throughout the right lower extremity are small in caliber. Moderate stenosis of the right common femoral artery. Focal severe stenosis of the distal common femoral artery. Three-vessel runoff. 5. Left lower extremity: Vessels throughout the left lower extremity are small in caliber. Patent arteries throughout the left lower extremity. Two-vessel runoff via anterior tibial and posterior tibial arteries. 6. Changes of cholecystectomy. 7. Sequela of prior granulomatous disease. 8. Emphysematous changes throughout both lungs. NELLY BRUCE DO Narrative 05/16/2021 3:46 PM SAFETY ENGINEER CTA CHEST, ABDOMEN, PELVIS RUNOFF WITHOUT CONTRAST DATE/TIME: 05/15/2021 10:17 AM INDICATION: Severe atherosclerosis stenosis left subclavian artery with associated ulcerative plaque. Patient complains of tingling in feet. Atherosclerosis of aorta (H). TECHNIQUE: Helical acquisition through the chest, abdomen and pelvis was performed during the arterial phase of contrast enhancement. 2D and 3D reconstructions performed by the magnetic resonance technologist. Dose reduction techniques were used. CONTRAST: 100mL Isovue-370 FINDINGS: CTA FINDINGS: Atherosclerotic disease is seen throughout the thoracic aorta without evidence of aneurysm, stenosis or dissection. Normal branching pattern of the great vessels. Severe stenosis at the origin of the left common carotid artery. Moderate to severe stenosis of the proximal left subclavian artery. The remainder of the left subclavian artery and the left axillary artery are patent. The brachiocephalic artery, right common carotid artery and right subclavian arteries are all patent. Significant atherosclerotic disease is noted throughout the abdominal aorta without evidence of aneurysm, dissection or stenosis. The celiac axis, superior mesenteric artery, bilateral single renal arteries and inferior mesenteric arteries are all patent. Mild stenosis throughout the bilateral common iliac arteries. Bilateral external iliac arteries are patent. Severe stenosis at the origin of the right internal iliac artery. 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 Right lower extremity: Right common moderate stenosis of the right common femoral artery. Profunda femoral artery is patent. Vessels throughout the right lower extremity are small in size. Focal severe stenosis of the distal right superficial femoral artery. Popliteal artery is patent. Three-vessel runoff. Left lower extremity: Left common femoral, profunda femoral, superficial popliteal arteries are patent. Vessels throughout the left lower extremity are small. Two-vessel runoff via the anterior tibial and posterior tibial arteries. NONVASCULAR: CHEST: Visualized thyroid is normal. No pleural effusion, pericardial effusion or pneumothorax. No axillary, hilar or mediastinal lymphadenopathy. Calcified granuloma in the right upper lobe. Emphysematous changes are noted throughout both lungs. Central airways are patent. ABDOMEN: Evaluation of solid organ parenchyma is limited secondary to contrast bolus timing. Calcifications are noted throughout the spleen, suggesting prior granulomatous disease. Cystic lesion is noted in the interpolar region of the left kidney, no further follow-up needed for this finding. The right kidney, adrenal glands, liver and pancreas show no focal abnormality. Changes of cholecystectomy. No intrahepatic or extra hepatic biliary dilatation. No intraperitoneal free air or free fluid. PELVIS: No dilated loops of small or large bowel. No abdominal or pelvic lymphadenopathy. The appendix is normal. Bladder is normal. MUSCULOSKELETAL: No suspicious bony lesions. Procedure Note Nelly Bruce, DO - 05/16/2021 CTA CHEST, ABDOMEN, PELVIS RUNOFF WITHOUT CONTRAST DATE/TIME: 05/15/2021 10:17 AM INDICATION: Severe atherosclerosis stenosis left subclavian artery with associated ulcerative plaque. Patient complains of tingling in feet. Atherosclerosis of aorta (H). TECHNIQUE: Helical acquisition through the chest, abdomen and pelvis was performed during the arterial phase of contrast enhancement. 2D and 3D reconstructions performed by the magnetic resonance technologist. Dose reduction techniques were used. CONTRAST: 100mL Isovue-370 FINDINGS: CTA FINDINGS: Atherosclerotic disease is seen throughout the thoracic aorta without evidence of aneurysm, stenosis or dissection. Normal branching pattern of the great vessels. Severe stenosis at the origin of the left common carotid artery. Moderate to severe stenosis of the proximal left subclavian artery. The remainder of the left subclavian artery and the left axillary artery are patent. The brachiocephalic artery, right common carotid artery and right subclavian arteries are all patent. Significant atherosclerotic disease is noted throughout the abdominal aorta without evidence of aneurysm, dissection or stenosis. The celiac axis, superior mesenteric artery, bilateral single renal arteries and inferior mesenteric arteries are all patent. Mild stenosis throughout the bilateral common iliac arteries. Bilateral external iliac arteries are patent. Severe stenosis at the origin of the right internal iliac artery. 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 Right lower extremity: Right common moderate stenosis of the right common femoral artery. Profunda femoral artery is patent. Vessels throughout the right lower extremity are small in size. Focal severe stenosis of the distal right superficial femoral artery. Popliteal artery is patent. Three-vessel runoff. Left lower extremity: Left common femoral, profunda femoral, superficial popliteal arteries are patent. Vessels throughout the left lower extremity are small. Two-vessel runoff via the anterior tibial and posterior tibial arteries. NONVASCULAR: CHEST: Visualized thyroid is normal. No pleural effusion, pericardial effusion or pneumothorax. No axillary, hilar or mediastinal lymphadenopathy. Calcified granuloma in the right upper lobe. Emphysematous changes are noted throughout both lungs. Central airways are patent. ABDOMEN: Evaluation of solid organ parenchyma is limited secondary to contrast bolus timing. Calcifications are noted throughout the spleen, suggesting prior granulomatous disease. Cystic lesion is noted in the interpolar region of the left kidney, no further follow-up needed for this finding. The right kidney, adrenal glands, liver and pancreas show no focal abnormality. Changes of cholecystectomy. No intrahepatic or extra hepatic biliary dilatation. No intraperitoneal free air or free fluid. PELVIS: No dilated loops of small or large bowel. No abdominal or pelvic lymphadenopathy. The appendix is normal. Bladder is normal. MUSCULOSKELETAL: No suspicious bony lesions. IMPRESSION: 1. Significant atherosclerotic disease throughout the thoracoabdominal aorta without evidence of aneurysm, stenosis or dissection. 2. Focal severe stenosis of the origin of the left common carotid artery and left subclavian arteries. 3. Mild multifocal stenosis throughout the bilateral common iliac arteries. 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 Severe stenosis at the origin of the right internal iliac artery. Bilateral external iliac arteries are patent. 4. Right lower extremity: Vessels throughout the right lower extremity are small in caliber. Moderate stenosis of the right common femoral artery. Focal severe stenosis of the distal common femoral artery. Three-vessel runoff. 5. Left lower extremity: Vessels throughout the left lower extremity are small in caliber. Patent arteries throughout the left lower extremity. Two-vessel runoff via anterior tibial and posterior tibial arteries. 6. Changes of cholecystectomy. 7. Sequela of prior granulomatous disease. 8. Emphysematous changes throughout both lungs. NELLY BRUCE DO Shade Conteh MD IMG CT ORDER [place] from Last 3 Months or Most Recently Relevant to Health Maintenance Advance Directives For more information, please contact: [phone] * Full Code (Latest Code Status on File) Date Activated Date Inactivated Comments 05/20/2021 8:01 AM Question Answer Comments Code status determined by: Discussion with patie nt/ legal decision maker * Full Code Date Activated Date Inactivated Comments 05/18/2021 12:06 AM 05/20/2021 8:01 AM All basic and advanced life-sustaining interventions are performed as appropriate Question Answer Comments Code status determined by: Discussion with patie nt/ legal decision maker Care Teams Sole Edge Inker Machine Relationship Specialty Start Date End Date Jose Amaral [address] [address] PCP - General Family Medicine 04/22/21 Dino Pretty MD [address] [place] [address] Assigned PCP 11/19/21
--- OUTSIDE RECORDS SUMMARY | 2023-12-29 14:06 | XMS_ITS | Referral Summary ---
Author Organization [facility] Address [address] [place] [address] Care Team Providers Care Rope Coiling Machine Operator Name Role Phone Jose Amaral Primary Care Provider + [phone] Dino Pretty MD Unavailable [phone] Allergies No known active allergies Medications Medication [...] COLONOSCOPY - HIM SCAN 06/01/2023 12:00 AM SURGICAL DENTAL ASSISTANT COMPREHENSIVE METABOLIC PANEL Routine 01/16/2022 10:38 AM [...] RUNOFF W CONTRAST Routine 05/15/2021 10:17 AM SURGICAL DENTAL ASSISTANT Atherosclerosis of aorta (H) from Last 3 Months or Most Recently Relevant to Health Maintenance Results * COLONOSCOPY - HIM SCAN (06/01/2023 12:00 AM SURGICAL DENTAL ASSISTANT) 06/01/2023 Provider Outside PROCEDURES * HIV Antigen Antibody Combo (01/16/2022 10:38 AM CDT) HIV Antigen Antibody Combo Nonreactive Nonreactive 01/19/2022 1:16 PM CDT [facility] DO Comment:HIV-1 p24 Ag & HIV-1 /HIV-2 Ab Not Detected Blood VENOUS BLOOD / Unknown Venipuncture / Unknown 01/16/2022 10:38 AM CDT 01/16/2022 10:38 AM CDT Dino Pretty MD LAB - BLOOD ORDRoque RUIZ [facility] Organization Address City/State/ZIP Co de Phone Number [facility]Prot[facility]Endo [address] [facility], Room [address] [phone] * Hepatitis C Screen Reflex to HCV [...] [facility]Prot[facility]Endo [address] [facility], [address], [place] [address], [facility] [phone] * Lipid panel reflex to direct LDL [...] mg/dL Dino Pretty MD LAB - BLOOD DULCE RUIZ [facility] [address] Lab (no room number, 1st floor of clinic) [place] [address], [facility] [phone] * (ABNORMAL) Comprehensive metabolic panel (BMP + [...] includes age and gender (Edward et al., NEJM, DOI: 10.1056/RJTXpr2446205) Blood VENOUS BLOOD / Unknown Venipuncture / Unknown 01/16/2022 10:38 AM CDT 01/16/2022 10:38 AM CDT Dino Pretty MD LAB - BLOOD DULCE RUIZ [facility] Organization Address City/State/ZIP Co de Phone Number [facility] [address] Lab (no room number, 1st floor of clinic) [place] [address], [facility] [phone] * CTA Chest Abdomen Pelvis Runoff w Contrast (05/15/2021 10:17 AM SURGICAL DENTAL ASSISTANT) Anatomical Region Laterality Modality Abdomen/Pelvis, SUBRAD IR IN OCEDURE, UMP CT CTA, RAD CT Computed Tomography Impressions 05/16/2021 3:46 PM SURGICAL DENTAL ASSISTANT IMPRESSION: 1. Significant atherosclerotic disease throughout the [...] NELLY BRUCE DO Narrative 05/16/2021 3:46 PM SURGICAL DENTAL ASSISTANT CTA CHEST, ABDOMEN, PELVIS RUNOFF WITHOUT CONTRAST DATE/TIME: 05/15/2021 10:17 AM INDICATION: Severe atherosclerosis stenosis left subclavian artery with associated ulcerative plaque. Patient complains of tingling in feet. Atherosclerosis of aorta (H). TECHNIQUE: Helical acquisition through the chest, abdomen and pelvis was performed during the arterial phase of contrast enhancement. 2D and 3D reconstructions performed by the sterile processing technologist. Dose reduction techniques were used. CONTRAST: [...] 2D and 3D reconstructions performed by the sterile processing technologist. Dose reduction techniques were used. CONTRAST: [...] lungs. NELLY BRUCE DO Shade Conteh MD IMMinna CT ORDER [place] from Last 3 Months or Most Recently Relevant to Health Maintenance Advance Directives For more information, please contact: [phone] * Full Code (Latest Code Status on [...] patie nt/ legal decision maker Care Teams Rope Coiling Machine Operator Relationship Specialty Start Date End Date Jose Amaral [address] [address] PCP - General Family Medicine 04/22/21 Dino Pretty MD [address] [place] [address] Assigned PCP 11/19/21
--- OUTSIDE RECORDS SUMMARY | 2023-12-29 14:06 | XMS_ITS | Clinical Summary ---
Author Organization [facility] Address [address] [place] [address] Care Team Providers Care Educational Psychology Professor Name Role Phone Jose Amaral MD Primary Care Provider [phone] Source Comments You are receiving this document as you are listed as the primary care provider,follow-up provider, or the patient has been referred to you for consultation.This is in compliance with the Medicare and[facility] EHR Incentive Program,which states Providers who transition their patient to another setting of careor provider of care or refers their patient to another provider of care shouldprovide summary care record for each transition of care or referral. [facility] Active Problems Problem Noted Date Diagnosed Date [...] C Screening (Preventive Services) 1960 Mammogram 1960 Adult Preventive Visit 02/26/1976 DTaP/Tdap/Td (1 - Tdap) 1977 Cholesterol 2003 Zoster/Shingles (1 of 2) 02/26/2008 Pneumococcal 65+ Yrs (1 - PCV) 2023 COVID-19 Vaccine (3 - season) 2023 07/16/2020, 06/25/2020 Influenza (Season Ended) 2024 019, 04/17/2015, 04/25/2014, Additional history exists HepA Aged Out [...] age to complete this topic Care Teams Educational Psychology Professor Relationship Specialty Start Date End Date Jose Amaral MD [address] [place] [address] PCP - General Family Practice 03/20/20
--- OUTSIDE RECORDS SUMMARY | 2023-12-29 14:06 | XMS_ITS | Encounter Summary ---
Author Organization [facility] Address [address] [place] [address] Care Team Providers Care Sales Operations Name Role Phone Cristin, Jose W Primary Care Provider + [phone] Shade Conteh MD Unavailable [phone] Dino Pretty MD Unavailable [phone] Dino Pretty MD Unavailable [phone] Arnulfo Giron MD Unavailable [phone] Reason for Visit * Reason Onset Date Comments Refill Request 03/09/2022 Encounter Details Date Type Department Care Team (Late st Contact Info) Description 03/09/2022 MyC Refill [address] [place] [address] Dino Pretty MD [address] [place] [address] Refill Request Social History Tobacco [...] claudication documented in this encounter Care Teams Sales Operations Relationship Specialty Start Date End Date Jose Amaral [address] [address] PCP - General Family Medicine 04/22/21 Shade Conteh MD [address] [place] [id number] Assigned Heart and Vascular Provider 04/27/21 10/30/22 Dino Pretty MD [address] [place], [place] [address] Assigned PCP 11/19/21 Dino Pretty MD [address] [place] [address] Assigned Pain Medication Provider 07/06/22 12/25/22 Arnulfo Giron MD [address] [place] [address] Assigned Heart and Vascular Provider 10/31/22 09/17/23 documented as of this encounter
--- OUTSIDE RECORDS SUMMARY | 2023-12-29 14:06 | XMS_ITS | Encounter Summary ---
Author Organization [facility] Address [address] [place] [address] Care Team Providers Care Geology Instructor Name Role Phone Cristin, Jose W Primary Care Provider + [phone] Shade Conteh MD Unavailable +- [phone] Dino Pretty MD Unavailable [phone] Dino Pretty MD Unavailable [phone] Arnulfo Giron MD Unavailable [phone] Reason for Visit * Reason Onset Date Comments Refill Request 01/11/2022 Encounter Details Date Type Department Care Team (Late st Contact Info) Description 01/11/2022 MyC Refill [address] [place] [address] Dino Pretty MD [address] [place] [address] Refill Request Social History Tobacco [...] claudication documented in this encounter Care Teams Geology Instructor Relationship Specialty Start Date End Date Jose Amaral [address] [address] PCP - General Family Medicine 04/22/21 Shade Conteh MD [address] [place] [address] Assigned Heart and Vascular Provider 04/27/21 10/30/22 Dino Pretty MD [address] [place] [address] Assigned PCP 11/19/21 Dino Pretty MD [address] [place] [address] Assigned Pain Medication Provider 07/06/22 12/25/22 Arnulfo Giron MD [address] [place] [address] Assigned Heart and Vascular Provider 10/31/22 09/17/23 documented as of this encounter
--- OUTSIDE RECORDS SUMMARY | 2023-12-29 14:06 | XMS_ITS | Clinical Summary ---
Author Organization [facility] Address [place], [place] [address] Care Team Providers Care Dancing Teacher Name Role Phone Aracely Friedman Primary Care Provider Unava ilable Allergies No known active allergies Medications Medication Sig Dispensed Refills Start Date End Date Status rosuvastatin (CRESTOR) 20 mg tablet Take 1 Tablet by mouth once daily. 06/26/2021 Active lisinopril-hydroch lorothiazide (10-12.5 mg) tablet (PRINZIDE; ZESTORETIC) Take 1 Tablet by mouth once daily. 10/10/2021 Active aspirin (ECOTRIN) 81 mg enteric coated tablet Take 81 mg by mouth once daily. Active WalkerIndications: S/P lumbar spinal fusion Walker with front wheels for home use for 3 months. 1 Each 09/09/2022 Active gabapentin (NEURONTIN) 300 mg capsule Take 300 mg by mouth four times daily. Active acetaminophen (TYLENOL EXTRA STRGTH) 500 mg tabletIndications: Lumbar radicular pain Take 2 Tablets (1,000 mg) by mouth every 6 hours. Max acetaminophen dose: 4000mg in 24 hrs. 30 Tablet 02/10/2023 Active methocarbamoL (ROBAXIN) 750 mg tabletIndications: Lumbar radicular pain Take 1 Tablet (750 mg) by mouth every 6 hours if needed for Muscle Spasm. 30 Tablet 02/10/2023 Active ondansetron (ZOFRAN) 4 mg tabletIndications: Lumbar radicular pain Take 1 Tablet (4 mg) by mouth every 8 hours if needed for Nausea/Vomiting. 15 Tablet 02/10/2023 Active oxyCODONE (ROXICODONE) 5 mg immediate release tabletIndications: Lumbar radicular pain Take 1-2 Tablets (5-10 mg) by mouth every 4 hours if needed for Pain (First choice for severe pain.). 20 Tablet 02/10/2023 Active sennosides-docusat e (SENOKOT S) (8.6-50 mg) tabletIndications: Lumbar radicular pain Take 1-4 Tablets by mouth 2 times daily if needed for Constipation. 20 Tablet 02/10/2023 Active WalkerIndications: Lumbar radicular pain Walker with front wheels for home use for 3 months. 1 Each 02/10/2023 Active Active Problems Problem Noted Date [...] Date Trochanteric Bursitis 06/02/20062015 BRONCHITIS - ACUTE 06/17/200501/20/ 6 Family History Medical History Relation Name Comments [...] Outcome GA Total Labor Labor/2nd/3rd Weight Sex Type Anes PTL Jillian A1 A5 Name Clin Ectopic Term Last Filed Vital Signs Vital [...] 04/07/2010, DEXA/DXA scan for age 65+ 2023 Medicare Wellness for age 65+ 2023 COVID-19 vaccine series ( season) 2023 02/10/2022, 07/29/2021 Influenza for age 65+ 02/27/2024 Medical Devices Implanted Type Area Soaking Pits Supervisor Device Identifier Shelf Expiration Date Model / Serial / Lot [id number] ne 1-4mm 60cc Medtronic Fine Canclls Freeze Dried Implanted:Qty: 1 on 09/08/2022 by Lisa Mccarthy MD at [facility] N/A: Spine Medtronic Spine/Ortho 07/27/2026 [id number] / [id number] / [id number] ne Matrix 6cc Mcdonald Dbf Putty Dbm Implanted:Qty: 1 on 09/08/2022 by Lisa Mccarhty MD at [facility] N/A: Spine Medtronic Spine/Ortho 08/06/2024 [id number] / [id number] / Spacer Lmbr [id number] Zyston Convex Stra Tlif - [id number] Implanted:Qty: 1 on 09/08/2022 by Lisa Mccarthy MD at [facility] N/A: Spine Elmer Biomet [id number] / / [id number] Straight Spacer 15h X 30l X 11w Convex Implanted:Qty: 1 on 09/08/2022 by Lisa Mccarthy MD at [facility] N/A: Spine [id number] / / [id number] Description:STRAIGHT SPACER 15H X 30L X 11W CONVEX Harshal Lmbr 65x5.5mm Vitality Cvd Titnm - [id number] Implanted:Qty: 2 on 09/08/2022 by Lisa Mccarthy MD at [facility] N/A: Spine [employer]mer [employer] Spine 07.56213.0 10 / / Set Screw Lmbr 5.5-6mm Vitality Torque - [id number] Implanted:Qty: 6 on 09/08/2022 by Lisa Mccarthy MD at [facility] N/A: Spine [employer] Spine 07.68086.0 01 / / Screw Poly 7.5x50mm Implanted:Qty: 4 on 09/08/2022 by Lisa Mccarthy MD at [facility] N/A: Spine [id number] / / Description:SCREW POLY 7.5X5 0MM Screw Poly 7.5x45mm Implanted:Qty: 2 on 09/08/2022 by Lisa Mccarthy MD at [facility] N/A: Spine [id number] / / Description:SCREW POLY 7.5X4 5MM Screw Poly 7.5 X 45 Implanted:Qty: 2 on 02/09/2023 by Lisa Mccarthy MD at [facility] N/A: Spine [id number] / / Description:SCREW POLY 7.5 X 45 Screw Poly 8.5 X 40 Implanted:Qty: 2 on 02/09/2023 by Lisa Mccarthy MD at [facility] N/A: Spine [id number] / / Description:SCREW POLY 8.5 X 40 Harshal Lmbr 65x5.5mm Vitality Cvd Titnm - [id number] Implanted:Qty: 2 on 02/09/2023 by Lisa Mccarthy MD at [facility] N/A: Spine Elmer [employer] Spine 07.93703.0 10 / / Set Screw Lmbr 5.5-6mm Vitality Torque - [id number] Implanted:Qty: 6 on 02/09/2023 by Lisa Mccarthy MD at [facility] N/A: Spine Elmer [employer] Spine 07.14133.0 01 / / Bone 1-4mm 30cc Medtronic Chips Canclls Freeze Dried - [id number] Implanted:Qty: 1 on 02/09/2023 by Lisa Mccarthy MD at [facility] Medtronic Spine/Ortho 10/28/2026 [id number] / [id number] / Procedures Procedure Name Priority Date/Time Associated Diagnosis Comments COLONOSCOPY SCREENING Routine 04/07/2010 Special screening for malignant neoplasms, colon SCAN-MAMMOGRAPHY REPORT 05/05/2007 12:00 AM CLINICAL PHARMACY COORDINATOR LIPID PANEL Routine 01/20/2006 10:20 AM CDT Screening Lipid Disorders from Last 3 Months or Most Recently Relevant to Health Maintenance Results * COLONOSCOPY SCREENING (04/07/2010) Anthony Cohen MD GI PROCEDURE ORD * SCAN-MAMMOGRAPHY REPORT (05/05/2007 12:00 AM CLINICAL PHARMACY COORDINATOR) Anatomical Region Laterality Modality Other Scanner OTHER * (ABNORMAL) LIPID PANEL (01/20/2006 10:20 AM CDT) CHOLESTEROL,TOTAL 225(H) 110 - 199 mg/dL [facility] TRIGLYCERIDES 141 40 - 149 mg/dL [facility] HDL CHOLESTEROL 38(L) >40 mg/dL [facility] CHOL/HDL RATIO 5.92(H) <4.51 [facility] LDL CHOLESTEROL 159(H) <131 mg/dL [facility] PATIENT STATUS Fasting [facility] Blood specimen (specimen) BLOOD SPECIMEN / Unknown 01/20/2006 10:20 AM CDT 01/20/2006 10:19 AM CDT Diane Zuniga MD CHEMISTRY [facility] INTERNAL ZIP [id number] [place] [id number] from Last 3 Months or Most Recently Relevant to Health Maintenance Advance Directives * Full Code (Latest Code Status on File) Date Activated Date Inactivated Comments 02/09/2023 6:19 PM 02/10/2023 1:51 PM Question Answer Comments Code Status Discussion: Per Existing Order * Full Code Date Activated Date Inactivated Comments 09/08/2022 5:39 PM 09/09/2022 7:57 PM Question Answer Comments Code Status Discussion: Unable to Assess Preferences, Provider to review later * Full Code Date Activated Date Inactivated Comments 01/08/2016 10:29 AM 01/09/2016 2:48 PM * Full Code Date Activated Date Inactivated Comments 01/08/2016 5:30 AM 01/08/2016 10:29 AM Care Teams Dancing Teacher Relationship Specialty Start Date End Date Aracely Friedman PCP - General 08/21/22
--- OUTSIDE RECORDS SUMMARY | 2023-12-29 14:06 | XMS_ITS | Encounter Summary ---
Author Organization [facility] Address [address] [place] [address]. [place] [address] Care Team Providers Care Truck Washer Name Role Phone CristinJose Primary Care Provider + [phone] Shade Conteh MD Unavailable +- [phone] Dino Pretty MD Unavailable [phone] Dino Pretty MD Unavailable [phone] Arnulfo Giron MD Unavailable [phone] Encounter Details Date Type Department Care Team (Late st Contact Info) Description 12/12/2020 External Order Results [facility] [address] [place] [address] Outside, Provider Social History Tobacco Use Types [...] on filedocumented in this encounter Care Teams Truck Washer Relationship Specialty Start Date End Date Jose Amaral [address] [address] PCP - General Family Medicine 04/22/21 Shade Conteh MD [address] [place] [id number] Assigned Heart and Vascular Provider 04/27/21 10/30/22 Dino Pretty MD [address] [place] [address] Assigned PCP 11/19/21 Dino Pretty MD [address] [place] [address] Assigned Pain Medication Provider 07/06/22 12/25/22 Arnulfo Giron MD [address] [place] [id number] Assigned Heart and Vascular Provider 10/31/22 09/17/23 documented as of this encounter
--- NOTE | 2023-12-29 14:30 | CRLHL7_ITS ---
For Patients: As a result of the Century Cures Act, medical imaging exams and procedure reports are released immediately into your electronic medical record. You may view this report before your referring provider. If you have questions, please contact your health care provider. INDICATION: Spinal stenosis. Neurogenic claudication. COMPARISON: 03/08/2023. 10/16/2022. 08/05/2022. Technique Sagittal T1, T2, and STIR sequences. Axial T1 and T2 weighted sequences. FINDINGS: Normal vertebral body alignment. No fractures. No vertebral body loss of height. No spondylolisthesis. Since the previous CT, stable postoperative changes diskectomy and interbody fusion L4-5 and L5-S1. Associated laminectomies and posterior richa transpedicular screw fixation L4-S1. Edema and likely granulation tissue within the posterior soft tissues of the operative bed. Normal conus terminates at L1. T12-L1 L1-2: No spinal canal or neural foraminal narrowing. L2-3: Annular bulge. Mild narrowing of spinal canal. No neural foraminal narrowing. L3-4: Posterior disc herniation measures approximately 3 mm short axis. Combined with ligamentum flavum facet hypertrophy, there is moderate severe narrowing of the spinal canal. Moderate narrowing of bilateral foramina. Mild present arthropathy. L4-5: Postop changes. No narrowing of spinal canal. Allowing for artifact, there is mild narrowing of bilateral foramina. L5-S1: Postop changes. No narrowing of spinal canal. No impingement of the traversing S1 nerve roots. No narrowing of the right neural foramen. Moderate narrowing of the left neural foramen. Degenerative changes visualized SI joints. Normal paraspinal soft tissues. Small left renal cyst. IMPRESSION: 1. Normal alignment. No fractures 2. Stable postoperative changes of diskectomy interbody fusion L4-5 and L5-S1. 3. Mild lumbar spondylosis 4. At L3-4, posterior disc herniation. Moderate to severe narrowing of spinal canal. Moderate narrowing of the bilateral neural foramina 5. At L4-5, mild narrowing of the bilateral neural foramina 6. At L5-S1, moderate narrowing of the left neural foramen Dictated by Dandy Almodovar MD @ 12/30/2023 12:33:39 PM (Electronically Signed)
== END 2023-12-29 14:02 | disposition home or self-care (01) ==
LOC: MRI 14:02
PROVIDERS: PCP Family Medicine; Visit Provider Specialist
DX: M48.062 Spinal stenosis, lumbar region with neurogenic claudication (principal); M47.896 Other spondylosis, lumbar region; M51.26 Other intervertebral disc displacement, lumbar region; M51.27 Other intervertebral disc displacement, lumbosacral region
CPT/HCPCS: 72148

== ENCOUNTER 2024-05-03 09:46 | Outpatient (CLI) | payer MEDICARE, BC, SELFPAY ==
--- OUTSIDE RECORDS SUMMARY | 2024-05-03 09:57 | XMS_ITS | Clinical Summary ---
Author Organization [facility] Address [place], [place] [address] Care Team Providers Care Wharf Tender Name Role Phone Aracely Friedman Primary Care Provider Unava ilable Allergies No known active allergies Medications Medication Sig Dispensed Refills Start Date End Date Status rosuvastatin (CRESTOR) 20 mg tablet Take 1 Tablet by mouth once daily. 06/26/2021 Active aspirin (ECOTRIN) 81 mg enteric coated tablet Take 81 mg by mouth once daily. Active estradiol 0.0375 mg/24 hr SEMIWEEKLY patch Apply 1 Patch on dry, clean, hairless skin every Wednesday and . Active lisinopriL (PRINIVIL; ZESTRIL) 10 mg tablet Take 10 mg by mouth once daily. Active acetaminophen (TYLENOL EXTRA STRGTH) 500 mg tabletIndications: Acute post-operative pain Take 2 Tablets (1,000 mg) by mouth every 6 hours if needed for Pain. Max acetaminophen dose: 4000mg in 24 hrs. 02/23/2024 Active oxyCODONE (ROXICODONE) 5 mg immediate release tabletIndications: Acute post-operative pain Take 1-2 Tablets (5-10 mg) by mouth every 4 hours if needed for Pain (for severe pain.). 35 Tablet 02/23/2024 Active sennosides-docusat e (SENOKOT S) (8.6-50 mg) tabletIndications: Constipation due to opioid therapy Take 1-4 Tablets by mouth two times daily. 30 Tablet 02/23/2024 Active methocarbamoL (ROBAXIN) 500 mg tabletIndications: Acute post-operative pain Take 1 Tablet (500 mg) by mouth every 6 hours if needed for Muscle Spasm. 30 Tablet 02/23/2024 Active WalkerIndications: Lumbar foraminal stenosis Walker with front wheels for home use for 3 months. 1 Each 02/23/2024 Active Active Problems Problem Noted Date Diagnosed [...] Encounters Date Type Department Care Team Description 02/22/2024 1:30 PM CDT Anesthesia Event [facility] [address] [place] [address] Hernandez Rosen MD Purdy, Adam John, CRNA 02/22/2024 12:00 PM CDT - 02/22/2024 3:40 PM CDT Surgery [facility] [address] [place] [address] Lisa Mccarthy MD Decompression - Transfacet/Transforam inal L3 to: L4 Posterior Spine Fusion with Instrumentation L3 to: L4 Transforaminal Lumbar Interbody Fusion L3 to: L4 02/22/2024 9:49 AM CDT - 02/23/2024 3:20 PM CDT Hospital Encounter [facility] [address] [place] [address] Lisa Mccarthy MD [facility] Acute post-operative pain (Primary Dx); Constipation due to opioid therapy; Lumbar foraminal stenosis Discharge Disposition: Home Self Care 02/22/2024 Travel from Last 3 Months Family History Medical [...] Sign Reading Time Taken Comments Blood Pressure 155/73 02/23/2024 8:53 AM CDT Pulse 71 02/23/2024 8:04 AM CDT Temperature 37.3 ??C (99.1 ??F) 02/23/2024 8:04 AM CD T Respiratory Rate 18 02/23/2024 8:04 AM CDT Oxygen Saturation 93% 02/23/2024 8:04 AM CDT Inhaled Oxygen Concentration - - Weight 83.5 kg (184 lb) 02/22/2024 10:00 AM CDT Height 157.5 cm (5' 2) 02/22/2024 10:00 AM CDT Body Mass Index 33.65 02/22/2024 10:00 AM CDT Plan of Treatment Health Maintenance Due Date Last Done Comments Pneumococcal series for age 65+ (1 of 2 - PCV) 02/26/1964 Tdap 1969 Depression screening for age 12+ 1970 BMI (ht and wt on same day) for age 18+ 02/26/1976 Hepatitis C screening for age 18-79 02/26/1976 Tetanus booster 1978 Zoster (shingles) series for age 50+ (1 of 2) 02/26/2008 Mammogram for age 45-75 05/05/2008 05/05/20 07, 06/12/2006, 05/01/2004 Lipids for age 45-75 01/20/2011 01/20/2006, 09/18/2002, 09/18/2002 Colonoscopy through age 75 04/07/2020 04/07/2010, DEXA/DXA scan for age 65+ 2023 Medicare Wellness for age 65+ 2023 COVID-19 vaccine series ( season) 2024 02/10/2022, 07/29/2021 Influenza for age 65+ 02/27/2024 Medical Devices Implanted Type Area Shortage Worker Device Identifier Shelf Expiration Date Model / Serial / Lot [id number] one 1-4mm 60cc Medtronic Fine Canclls Freeze Dried Implanted:Qty: 1 on 09/08/2022 by Lisa Mccarthy MD at [facility] N/A: Spine Medtronic Spine/Ortho 07/27/2026 [id number] / [id number] / [id number] one Matrix 6cc Haley Dbf Putty Dbm Implanted:Qty: 1 on 09/08/2022 by Lisa Mccarthy MD at [facility] N/A: Spine Medtronic Spine/Ortho 08/06/2024 [id number] / [id number] / Spacer Lmbr [id number] [place] Convex Stra Tlif - [id number] Implanted:Qty: 1 on 09/08/2022 by Lisa Mccarthy MD at [facility] N/A: Spine Elmer [employer] [id number] / / [id number] Straight Spacer 15h X 30l X 11w Convex Implanted:Qty: 1 on 09/08/2022 by Lisa Mccarthy MD at [facility] N/A: Spine [id number] / / [id number] Description:STRAIGHT SPACER 15H X 30L X 11W CONVEX Chi Lmbr 65x5.5mm Vitality Cvd Titnm - [id number] Implanted:Qty: 2 on 09/08/2022 by Lisa Mccarthy MD at [facility] N/A: Spine [employer] Spine [id number] / / Set Screw Lmbr 5.5-6mm Vitality Torque - [id number] Implanted:Qty: 6 on 09/08/2022 by Lisa Mccarthy MD at [facility] N/A: Spine [employer] Spine [id number]. 001 / / Screw Poly 7.5x50mm Implanted:Qty: 4 on 09/08/2022 by Lisa Mccarthy MD at [facility] N/A: Spine [id number] / / Description:SCREW POLY 7.5X5 0MM Screw Poly 7.5x45mm Implanted:Qty: 2 on 09/08/2022 by Lisa Mccarthy MD at [facility] N/A: Spine [id number] / / Description:SCREW POLY 7.5X4 5MM Screw Poly 7.5 X 45 Implanted:Qty: 2 on 02/09/2023 by Lisa Mccarthy MD at [facility] N/A: Spine [id number] / / Description:SCREW POLY 7.5 X 45 Screw Poly 8.5 X 40 Implanted:Qty: 2 on 02/09/2023 by Lisa Mccarthy MD at [facility] N/A: Spine [id number] / / Description:SCREW POLY 8.5 X 40 Chi Lmbr 65x5.5mm Vitality Cvd Titnm - [id number] Implanted:Qty: 2 on 02/09/2023 by Lisa Mccarthy MD at [facility] N/A: Spine [employer] Spine [id number]. 010 / / Set Screw Lmbr 5.5-6mm Vitality Torque - [id number] Implanted:Qty: 6 on 02/09/2023 by Lisa Mccarthy MD at [facility] N/A: Spine [employer] Spine [id number]. 001 / / Bone 1-4mm 30cc Medtronic Chips Canclls Freeze Dried - [id number] Implanted:Qty: 1 on 02/09/2023 by Lisa Mccarthy MD at [facility] Medtronic Spine/Ortho 10/28/2026 [id number] / [id number] / Bone 1-4mm 30cc Medtronic Chips Canclls Freeze Dried - [id number] Implanted:Qty: 1 on 02/22/2024 by Lisa cMcarthy MD at [facility] N/A: Spine Medtronic Spine/Ortho [id number] 12/01/2027 [id number] / [id number] / [id number] Bone Matrix 3cc [place] Dbf Putty Db - [id number] Implanted:Qty: 1 on 02/22/2024 by Lisa Mccarthy MD at [facility] N/A: Spine Medtronic Spine/Ortho [id number] 11/30/2025 [id number] / [id number] / Spacer Lmbr [id number] Zyston Convex Stra Tlif - [id number] Implanted:Qty: 1 on 02/22/2024 by Lisa Mccarthy MD at [facility] N/A: Spine [employer] [id number] / / [id number] Screw Spinal 6.5x50mm Poly Tl - [id number] Implanted:Qty: 2 on 02/22/2024 by Lisa Mccarthy MD at [facility] N/A: Spine [employer] Spine [id number] / / Set Screw Lmbr 5.5-6mm Vitality Torque - [id number] Implanted:Qty: 8 on 02/22/2024 by Lisa Mccarthy MD at [facility] N/A: Spine [employer] Spine [id number]. 001 / / Chi Lmbr 95x5.5mm Vitality Cvd Titnm - [id number] Implanted:Qty: 2 on 02/22/2024 by Lisa Mccarthy MD at [facility] N/A: Spine [employer] Spine [id number]. 016 / / Explanted Type Area Shortage Worker Device Identifier Shelf Expiration Date Model / Serial / Lot Explant Explanted:Qty: 1 on 02/22/2024 at [facility] N/A: Spine Description:CHI X2 SET SCREW X6 Procedures Procedure Name Priority Date/Time Associated Diagnosis Comments XR SPINE LUMBAR 2 VIEWS Routine 02/23/2024 11:17 AM CDT BASIC METABOLIC PANEL Early AM 02/23/2024 6:07 AM CDT HEMOGLOBIN Early AM 02/23/2024 6:07 AM CDT XR SPINE LUMBAR 2 VIEWS PORTABLE Routine 02/22/2024 3:09 PM CDT XR SPINE 1 VIEW PORTABLE Routine 02/22/2024 2:40 PM CDT ENDOTRACHEAL TUBE Routine 02/22/2024 2:10 PM CDT ENDOTRACHEAL TUBE Routine 02/22/2024 2:10 PM CDT ENDOTRACHEAL TUBE Routine 02/22/2024 2:10 PM CDT REMOVAL HARDWARE SPINAL IMPLANTS Class E Urgent 02/22/2024 12:53 PM CDT Stenosis, Lumbar - w/Neurogenic Claudication M48.062 Case Notes C_ArmCell SaverNO lopez neededJackson ComboVitality*NO BMP*Existing: Vitality @ L4-S1MR FUSION TRANSFORAMINAL SPINAL INTERBODY LEVEL 1 Class E Urgent 02/22/2024 12:53 PM CDT Stenosis, Lumbar - w/Neurogenic Claudication M48.062 Case Notes C_ArmCell SaverNO lopez neededJackson ComboVitality*NO BMP*Existing: Vitality @ L4-S1MR GLUCOSE METER Timed 02/22/2024 10:39 AM CDT SCAN-CARDIAC STRIP 02/22/2024 12:00 AM CDT SCAN-OPERATIVE/PROCE DURE REPORT 02/22/2024 12:00 AM CDT SCAN CORRESP-EKG RESULTS 02/15/2024 11:48 AM CDT COLONOSCOPY SCREENING Routine 04/07/2010 Special screening for malignant neoplasms, colon SCAN-MAMMOGRAPHY REPORT 05/05/2007 12:00 AM ADMINISTRATION MANAGER LIPID PANEL Routine 01/20/2006 10:20 AM CDT Screening Lipid Disorders from Last 3 Months or Most Recently Relevant to Health Maintenance Results * XR SPINE LUMBAR 2 VIEWS (02/23/2024 11:17 AM CDT) Anatomical Region Laterality Modality LUMBAR SPINE Digital Radiogra phy 02/24/2024 8:15 AM CDT Narrative 02/24/2024 8:15 AM CDT For Patients: ??As a result of the Cures Act, medical imaging exams and procedure reports are released immediately into your electronic medical record. ??You may view this report before your referring provider. ??If you have questions, please contact your health care provider. Indication: Postoperative evaluation. Technique: Two view(s) of the lumbar spine. Comparison: 02/22/2024 and 02/10/2023. Findings: Field of view: Adequate. Lumbar vertebral bodies: 5. Alignment: Anatomic. Vertebral body heights: Maintained. Intervertebral disc spaces: Mild intervertebral disc space narrowing in the lower thoracic and upper lumbar spine. Postoperative changes: Interval fusion extension with instrumented interbody fusion spanning L3-S1. No evidence of hardware complication. Posterior surgical drain. Degenerative changes: Small multilevel endplate osteophytes.. Miscellaneous: Moderate bilateral sacroiliac joint degenerative changes. Atherosclerotic aortic calcifications. Nonobstructed bowel gas pattern. ?? Impression: Interval postoperative changes following instrumented interbody fusion extension from L3-S1. No evidence of hardware complication. Dictated by Catia Ott DO @ Feb 24 2024 ??8:15AM (Electronically Signed) [email or web address] Procedure Note Catia Ott DO - 02/24/2024 For Patients: As a result of the Cures Act, medical imagingexams and procedure reports are released immediately into your electronicmedical record. You may view this report before your referring provider.If you have questions, please contact your health care provider. Indication: Postoperative evaluation. Technique: Two view(s) of the lumbar spine. Comparison: 02/22/2024 and 02/10/2023. Findings: Field of view: Adequate. Lumbar vertebral bodies: 5. Alignment: Anatomic. Vertebral body heights: Maintained. Intervertebral disc spaces: Mild intervertebral disc space narrowing inthe lower thoracic and upper lumbar spine. Postoperative changes: Interval fusion extension with instrumentedinterbody fusion spanning L3-S1. No evidence of hardware complication.Posterior surgical drain. Degenerative changes: Small multilevel endplate osteophytes.. Miscellaneous: Moderate bilateral sacroiliac joint degenerative changes.Atherosclerotic aortic calcifications. Nonobstructed bowel gas pattern. Impression: Interval postoperative changes following instrumented interbody fusionextension from L3-S1. No evidence of hardware complication. Dictated by Catia Ott DO @ Feb 24 2024 8:15AM (Electronically Signed) [email or web address] [facility] * Hemoglobin AM (02/23/2024 6:07 AM CDT) HEMOGLOBIN 12.7 12.0 - 16.0 g/dL 02/23/2024 6:49 AM CDT [facility] MCV 93 80 - 100 fL 02/23/2024 6:49 AM CDT [facility] Blood BLOOD SPECIMEN / Unknown Venipuncture / Unknown 02/23/2024 6:07 AM CDT 02/23/2024 6:44 AM CDT Kaur Cueva MD [facility] [address] [place] [id number] * (ABNORMAL) Basic metabolic panel AM (02/23/2024 6:07 AM CDT) SODIUM 139 136 - 145 mmol/L 02/23/2024 7:29 AM CDT [facility] POTASSIUM 4.5 3.5 - 5.1 mmol/L 02/23/2024 7:29 AM CDT [facility] CHLORIDE 105 98 - 107 mmol/L 02/23/2024 7:29 AM CDT [facility] CO2,TOTAL 27 22 - 29 mmol/L 02/23/2024 7:29 AM CDT [facility] ANION GAP 7 5 - 18 02/23/2024 7:29 AM CDT [facility] GLUCOSE 138(H) 70 - 99 mg/dL 02/23/2024 7:29 AM CDT [facility] CALCIUM 8.7(L) 8.8 - 10.2 mg/dL 02/23/2024 7:29 AM CDT [facility] BUN 16 8 - 23 mg/dL 02/23/2024 7:29 AM [facility] CREATININE 0.74 0.50 - 0.90 mg/dL 02/23/2024 7:29 AM CDT [facility] BUN/CREAT RATIO 22(H) 10 - 20 7:29 AM T [facility] eGFR 90(L) >90 mL/min/1.7 3m2 02/23/2024 7:29 AM CDT [facility] Comment:As of 2021, eG FR is calculated by the CKD-EPI creatinine equation without race adjustment. ??eGFR can be influenced by muscle mass, exercise, and diet. ??The reported eGFR is an estimation only and is only applicable if the renal function is stable. Blood BLOOD SPECIMEN / Unknown Venipuncture / Unknown 02/23/2024 6:07 AM CDT 02/23/2024 6:44 AM CDT Kaur Cueva MD CHEMISTRY [facility] [address] [place] [address], * XR SPINE LUMBAR 2 VIEWS PORTABLE (02/22/2024 3:09 PM CDT) Anatomical Region Laterality Modality Spine, LUMBAR SPINE Digital Radi ography 02/22/2024 3:24 PM CDT Narrative 02/22/2024 3:24 PM CDT For Patients: ??As a result of the Cures Act, medical imaging exams and procedure reports are released immediately into your electronic medical record. ??You may view this report before your referring provider. ??If you have questions, please contact your health care provider. Indication: Spine surgery Technique: Portable AP and cross-table lateral x-rays of the lumbar spine obtained in surgery at 1511 hours. Comparison: None Findings: Pedicle screws now in place at the L3, L4, L5 and S1 levels. Interbody spacers at L3-4, L4-5 and L5-S1. Alignment remains anatomic. Impression: Placement of an L3-4 interbody spacer, as well as bilateral L3 pedicle screws. Dictated by Sebastián Kerr MD @ Feb 22 2024 ??3:24PM (Electronically Signed) Neuroradiologist [email or web address] Procedure Note Sebastián Kerr MD - 02/22/2024 For Patients: As a result of the Cures Act, medical imagingexams and procedure reports are released immediately into your electronicmedical record. You may view this report before your referring provider.If you have questions, please contact your health care provider. Indication: Spine surgery Technique: Portable AP and cross-table lateral x-rays of the lumbar spine obtained insurgery at 1511 hours. Comparison: None Findings: Pedicle screws now in place at the L3, L4, L5 and S1 levels. Interbodyspacers at L3-4, L4-5 and L5-S1. Alignment remains anatomic. Impression: Placement of an L3-4 interbody spacer, as well as bilateral L3 pediclescrews. Dictated by Sebastián Kerr MD @ Feb 22 2024 3:24PM (Electronically Signed) Neuroradiologist [email or web address] Lisa Mccarthy MD GENERAL IMAGING * XR SPINE 1 VIEW PORTABLE (02/22/2024 2:40 PM CDT) Anatomical Region Laterality Modality Spine, CERVICAL SPINE, THORACIC SPINE, LUMBAR SP INE Digital Radiography 02/22/2024 3:22 PM CDT Narrative 02/22/2024 3:22 PM CDT For Patients: ??As a result of the Cures Act, medical imaging exams and procedure reports are released immediately into your electronic medical record. ??You may view this report before your referring provider. ??If you have questions, please contact your health care provider. Indication: Spine surgery Technique: Portable one view cross-table lateral x-ray of the lumbar spine taken in surgery at 1427 hours. Comparison: None Findings: The probe is projected over the spinous process of L3, and directed towards the posterior aspect of the L3-4 disc space. Pedicle screws noted at the L4, L5 and S1 levels. Interbody spacers at L4-5 and L5-S1. Alignment is anatomic. Impression: Intraoperative localization of L3-4. Dictated by Sebastián Kerr MD @ Feb 22 2024 ??3:22PM (Electronically Signed) Neuroradiologist [email or web address] Procedure Note Sebastián Kerr MD - 02/22/2024 For Patients: As a result of the Cures Act, medical imagingexams and procedure reports are released immediately into your electronicmedical record. You may view this report before your referring provider.If you have questions, please contact your health care provider. Indication: Spine surgery Technique: Portable one view cross-table lateral x-ray of the lumbar spine taken insurgery at 1427 hours. Comparison: None Findings: The probe is projected over the spinous process of L3, and directedtowards the posterior aspect of the L3-4 disc space. Pedicle screws noted at the L4, L5 and S1 levels. Interbody spacers at L4-5 and L5-S1. Alignment is anatomic. Impression: Intraoperative localization of L3-4. Dictated by Sebastián Kerr MD @ Feb 22 2024 3:22PM (Electronically Signed) Neuroradiologist [email or web address] Lisa Mccarthy MD GENERAL IMAGING * HCHG TUBE PR1, HCHG STYLET PR1, HCHG MOUTHPIECE PR1 (02/22/2024 2:10 PM CDT) Narrative Onesimo Garcia CRNA - 02/22/2024 2:10 PM CDT Onesimo Garcia CRNA ? 02/22/2024 ??2:11 PM Procedure: ETT Patient location during procedure: OR ETT Properties Mask Ventilation: not attempted Final Technique: direct laryngoscopy and rapid sequence induction Type: straight Location: oral Tube Size: 7.0 mm Stylet: yes Laryngoscope Blade: Clemens Blade Size: 2 Cormack-Lehane Grade View: 1 Insertion Attempts: 1 Placement Verification: auscultation, end tidal CO2 and symmetrical chest wall movement Assessment: atraumatic, dentition unchanged and pharynx clear Secured at: 20 Measured From: lips Tooth guard used and removed: yes Bite Block: soft Difficulty: 0 (not difficult) Virgilio Lopez CRNA ANESTHESIA PX NOTE ORDERABLES * GLUCOSE METER (02/22/2024 10:39 AM CDT) [facility] Signature GLUCOSE METER 97 65 - 100 mg/dL 02/22/2024 10:39 AM CDT [facility] Blood BLOOD SPECIMEN / Unknown 02/22/2024 10:39 AM CDT 02/22/2024 10:39 AM CDT Lisa Mccarthy MD [facility] [address] [place] [address] * SCAN-CARDIAC STRIP (02/22/2024 12:00 AM CDT) Narrative 02/22/2024 12:00 AM CDT Ordered by an unspecified provider. Other Clinical Staff OTHER * SCAN-OPERATIVE/PROCEDURE REPORT (02/22/2024 12:00 AM CDT) Narrative 02/22/2024 12:00 AM CDT Ordered by an unspecified provider. Other Clinical Staff OTHER * SCAN CORRESP-EKG RESULTS (02/15/2024 11:48 AM CDT) Narrative 02/15/2024 11:48 AM CDT Ordered by an unspecified provider. Other Clinical Staff OTHER * COLONOSCOPY SCREENING (04/07/2010) Anthony Cohen MD GI PROCEDURE ORD * SCAN-MAMMOGRAPHY REPORT (05/05/2007 12:00 AM ADMINISTRATION MANAGER) Anatomical Region Laterality Modality Other Scanner OTHER * (ABNORMAL) LIPID PANEL (01/20/2006 10:20 AM CDT) CHOLESTEROL,TOTAL 225(H) 110 - 199 mg/dL [facility] TRIGLYCERIDES 141 40 - 149 mg/dL [facility] HDL CHOLESTEROL 38(L) >40 mg/dL [facility] CHOL/HDL RATIO 5.92(H) <4.51 [facility] LDL CHOLESTEROL 159(H) <131 mg/dL [facility] PATIENT STATUS Fasting [facility] Blood specimen (specimen) BLOOD SPECIMEN / Unknown 01/20/2006 10:20 AM CDT 01/20/2006 10:19 AM CDT Diane Zuniga MD CHEMISTRY [facility] [place]NAL ZIP [address] [place] [address] from Last 3 Months or Most Recently Relevant to Health Maintenance Advance Directives * Full Code (Latest Code Status on File) Date Activated Date Inactivated Comments 02/22/2024 9:04 PM 02/23/2024 5:46 PM Question Answer Comments Code Status Discussion: Unable to Assess Preferences, Provider to review later * Full Code Date Activated Date Inactivated Comments 02/09/2023 6:19 [...] 5:30 AM 01/08/2016 10:29 AM Care Teams Wharf Tender Relationship Specialty Start Date End Date Aracely Friedman PCP - General 08/21/22
--- OUTSIDE RECORDS SUMMARY | 2024-05-03 09:57 | XMS_ITS | Encounter Summary ---
Author Organization [facility] Address [address] [place] [address] Care Team Providers Care Street Sweeper Name Role Phone Cristin Jose Jeanne Primary Care Provider + [phone] Shade Conteh MD Unavailable +- [phone] Dino Pretty MD Unavailable [phone] Dino Pretty MD Unavailable [phone] Arnulfo Giron MD Unavailable [phone] Reason for Visit * Reason Onset Date Comments Refill Request 03/09/2022 Encounter Details Date Type Department Care Team (Late st Contact Info) Description 03/09/2022 MyC Refill [address] [place] [address] Dino Pretty MD [address] [place], [place] [id number] Refill Request Social History Tobacco Use Types Packs/Day Years Used Date Smoking Tobacco: Every Day Cigarettes Smokeless Tobacco: Never Alcohol Use Standard Drinks/Week Comments Yes 0 (1 standard drink = 0.6 oz pur e alcohol) PHQ-2 Answer Date Recorded PHQ-2 Score 0 12/12/2021 Comments No Sex and Gender Information Value Date Recorded Sex Assigned at Not on file Legal Sex 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 No / Unsure 03/12/2022 1:56 PM CDT documented as of this encounter Plan of Treatment Not on file documented as of this encounter Visit Diagnoses Diagnosis Lumbar foraminal stenosis Spinal stenosis, lumbar region, without neurogenic claudication documented in this encounter Care Teams Street Sweeper Relationship Specialty Start Date End Date Jose Amaral Jeanne [address] [address] PCP - General Family Medicine 04/22/21 Shade Conteh MD [address] [place] [address] Assigned Heart and Vascular Provider 04/27/21 10/30/22 Dino Pretty MD [address] [place] [address] Assigned PCP 11/19/21 Dino Pretty MD [address] [place] [address] Assigned Pain Medication Provider 07/06/22 12/25/22 Arnulfo Giron MD [address] [place] [address] Assigned Heart and Vascular Provider 10/31/22 09/17/23 documented as of this encounter
--- OUTSIDE RECORDS SUMMARY | 2024-05-03 09:57 | XMS_ITS | Clinical Summary ---
Author Organization [facility] Address [address] [place] [address] Care Team Providers Care Sap Payroll Consultant Name Role Phone Jose Amaral MD Primary Care Provider [phone] Source Comments You are receiving this document as you are listed as the primary care provider,follow-up provider, or the patient has been referred to you for consultation.This is in compliance with the Medicare and[facility] Hospital[facility] EHR Incentive Program,which states Providers who transition their patient to another setting of careor provider of care or refers their patient to another provider of care shouldprovide summary care record for each transition of care or referral. [facility] Active Problems Problem Noted Date Diagnosed Date Lumbar radiculitis 04/04/2020 Social History Tobacco Use Types Packs/Day Years Used Date Smoking Tobacco: Never Assessed Sex and Gender Information Value Date Recorded Sex Assigned at Not on file Gender Identity Not on file Sexual Orientation Not on file Plan of Treatment Health Maintenance Due Date Last Done Comments Colon Cancer Screening Plan Due 1960 Hep C Screening (Preventive Services) 1960 Mammogram 1960 Adult Preventive Visit 02/26/1976 DTaP/Tdap/Td (1 - Tdap) 1977 Cholesterol 2003 Zoster/Shingles (1 of 2) 02/26/2008 Pneumococcal 65+ Yrs (1 - PCV) 2023 COVID-19 Vaccine (3 - season) 2024 07/16/2020, 06/25/2020 Influenza (#1) 2024 03/13/2019, 1006/2014, 04/25/2014, Additional history exists RSV (1 - 1-dose 75+ series) 2033 HepA Aged Out No longer eligi ble based on patient's age to complete this topic HepB Aged Out No longer eligi ble based on patient's age to complete this topic Hib Aged Out No longer eligi ble based on patient's age to complete this topic IPV (Polio) Aged Out No longer eligi ble based on patient's age to complete this topic Infant RSV Aged Out No longer eligi ble based on patient's age to complete this topic MCV4 Aged Out No longer eligi ble based on patient's age to complete this topic Care Teams Sap Payroll Consultant Relationship Specialty Start Date End Date Jose Amaral MD [address] [place] [address] PCP - General Family Practice 03/20/20
--- OUTSIDE RECORDS SUMMARY | 2024-05-03 09:57 | XMS_ITS | Encounter Summary ---
Author Organization [facility] Address [address] [place] [address] Care Team Providers Care Mushroom Spawn Maker Name Role Phone Jose Amaral Jeanne Primary Care Provider + [phone] Shade Conteh MD Unavailable +- [phone] Dino Pretty MD Unavailable [phone] Dino Pretty MD Unavailable [phone] Arnulfo Giron MD Unavailable [phone] Encounter Details Date Type Department Care Team (Late st Contact Info) Description 12/24/2021 MyC Medical Advice [address] [place] [address] Dino Pretty MD [address] [place] [address] Social History Tobacco Use Types Packs/Day Years Used Date Smoking Tobacco: Every Day Cigarettes Smokeless Tobacco: Never Alcohol Use Standard Drinks/Week Comments Yes 0 (1 standard drink = 0.6 oz pur e alcohol) PHQ-2 Answer Date Recorded PHQ-2 Score 0 12/12/2021 Comments No Sex and Gender Information Value Date Recorded Sex Assigned at Not on file 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 Gender Identity Not on file Sexual Orientation [...] on filedocumented in this encounter Care Teams Mushroom Spawn Maker Relationship Specialty Start Date End Date Jose Amaral [address] [id number] PCP - General Family Medicine 04/22/21 Shade Conteh MD [address] [place] [id number] Assigned Heart and Vascular Provider 04/27/21 10/30/22 Dino Pretty MD [address] [place] [address] Assigned PCP 11/19/21 Dino Pretty MD [address] [place] [address] Assigned Pain Medication Provider 07/06/22 12/25/22 Arnulfo Giron MD [address] [place] [address] Assigned Heart and Vascular Provider 10/31/22 09/17/23 documented as of this encounter
--- OUTSIDE RECORDS SUMMARY | 2024-05-03 09:57 | XMS_ITS | Encounter Summary ---
Author Organization [facility] Address [address] [place] [address] Care Team Providers Care Sweet Goods Machine Operator Name Role Phone Cristin Jose Jeanne Primary Care Provider + [phone] Shade Conteh MD Unavailable +- [phone] Dino Pretty MD Unavailable [phone] Dino Pretty MD Unavailable [phone] Arnulfo Giron MD Unavailable [phone] Reason for Visit * Reason Onset Date Comments Refill Request 01/11/2022 Encounter Details Date Type Department Care Team (Late st Contact Info) Description 01/11/2022 MyC Refill [address] [place] [address] Dino Pretty MD [address] [place], [place] [id number] Refill Request Social History Tobacco Use Types Packs/Day Years Used Date Smoking Tobacco: Every Day Cigarettes Smokeless Tobacco: Never Alcohol Use Standard Drinks/Week Comments Yes 0 (1 standard drink = 0.6 oz pur e alcohol) PHQ-2 Answer Date Recorded PHQ-2 Score 0 12/12/2021 Comments No Sex and Gender Information Value Date Recorded Sex Assigned at Not on file 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 Gender Identity Not on file Sexual Orientation [...] claudication documented in this encounter Care Teams Sweet Goods Machine Operator Relationship Specialty Start Date End Date Jose Amaral [address] [address] PCP - General Family Medicine 04/22/21 Sahde Conteh MD [address] [place] [address] Assigned Heart and Vascular Provider 04/27/21 10/30/22 Dino Pretty MD [address] [place], [place] [address] Assigned PCP 11/19/21 Dino Pretty MD [address] [place] [address] Assigned Pain Medication Provider 07/06/22 12/25/22 Arnulfo Giron MD [address] [place] [address] Assigned Heart and Vascular Provider 10/31/22 09/17/23 documented as of this encounter
--- OUTSIDE RECORDS SUMMARY | 2024-05-03 09:57 | XMS_ITS | Continuity of Care Document ---
Author Organization [facility] Address [address] [place] [address] Phone Care Team Providers Care Sales Superintendent Name Role Phone Shari MCCLELLAND, Lisa Unavailable Unavailable Allergies, Adverse Reactions, Alerts Substance Reaction Status Criticality No Known Allergies Active No Inform ation Medications Medication Instructions Dosage Effective Dates (start - stop) Status Comments gabapentin 100 mg capsule take 1 capsule by ORAL route 3 times every day 100 MG - Active ALIVE WOMEN'S ENERGY (unknown strength) Not Available - Active ESTROGEN-METHYLTES TOSTERONE (unknown strength) Not Available - Active IBUPROFEN (unknown strength) Not Available - Active Procedures Procedure Date Postop Followup Visit X Ray Exam Entire Spine 2/3 VW TLIF - Includes PSF at the same level - PA RICKETTS FACETC/FRMT ARTHRD LUM 1 PEEK/ Cage/ Implant, For Interbody Fusio n - PA Posterior Instrumentation, 3-6 Segments - PA TLIF - Includes PSF at the same level Au RICKETTS FACETC/FRMT ARTHRD LUM 1 PEEK/ Cage/ Implant, For Interbody Fusio n Posterior Instrumentation, 3-6 Segments Physician Telephone Evaluation 5-10 Min Office/Outpatient Visit,Est, Mod 2023 X-Ray Exam Lower [...] - Includes PSF at the same level Wi TLIF - Additional Level(s) Includes PSF at [...] Spine Lamina, 1 S eg Office/Outpatient Visit,Leonel Meadosw 2015 X-Ray Exam Of Lower Spine, Bending Advance Directives Directive Yes / No Effective Date File Name No Information Encounters Encounter Description Practice Location Reason(s) For Visit Diagnoses Date Provider Providers Copied on Encounter [facility], [address], [place], [place], [id number] , [place] tel: [phone] [facility] No Information 4 Mehbod Amir. [facility], [address] [place] [address] 600, [place], [id number] , [place]. tel: [phone] [facility], [address], [place], [id number] , [place] tel: [phone] [facility] Encounter for other specified surgical aftercare 4 Mehbod Amir. [facility] [place], [address] [place] [address] 600, [place], [id number] , [place]. tel: [phone] Referring Provider: Rudi Mcneil, [facility] & [address], [address]. tel:[phone] [facility], [address], [place], [place], [id number] , [place] tel: [phone] [employer] [facility] [facility] No Information 4 Mehbod Amir. [facility] [place], [address] [place] [address] 600, [place], [id number] , [place]. tel: [phone] [facility], [address], [place], [id number] , [place] tel: [phone] [facility] No Information 4 Brown Patel. [address] [place] [address] 600, [place], [id number] , [place]. tel:[phone] [facility]: [facility] & [address], [address]. tel:[phone] [facility], [address], [place], [place], [address] , [place] tel: [phone] [facility] No Information 4 Mehbod Amir. [facility], [address] [place] [address] 600, [place], [place], [id number] , [place]. tel: [phone] Referring Provider: uRdi Mcneil, [facility] & [address], [address]. tel:[phone] Physician Telephone Evaluation 5-10 Min [facility], [address], [place], [place], [address] , [place] tel: [phone] [facility] No Information 4 Mehbod Amir. [facility] [place], [address] [place] [address] 600, [place], [place], [id number] , [place]. tel: [phone] Referring Provider: Rudi Mcneil, [facility] & [address], [address]. tel:[phone] Office/Outpat ient Visit,Est, Mod [facility], [address], [place], [place], [address] , [place] tel: [phone] [facility] Spinal stenosis, lumbar region with neurogenic claudication 4 Mehbod Amir. [facility] [place], [address] [place] [address] 600, [place], [place], [id number] , [place]. tel: [phone] Referring Provider: Rudi Mcneil, [facility] & [address], [address]. tel:[phone] [facility], [address], [place], [place], [address] , [place] tel: [phone] [facility] No Information 3 Brown Patel. [address] [place] [address], [place], [place], [address] , [place]. tel: [phone] Referring Provider: Rudi Mcneil, [facility] & [address], [address]. tel:[phone] [facility], [address], [place], [id number] , [place] tel: [phone] [facility] Encounter for other specified surgical aftercare 3 Mehbod Amir. [facility] [place], [address] [place] [address] [address], [place], [id number] , [place]. tel:[phone] Referring Provider: Rudi Mcneil, [facility] & [address], [address]. tel:[phone] [facility], [address], [place], [id number] , [place] tel: [phone] [facility] No Information 3 Elder Angulo . [facility] [place], [address] [place] [address] [address], [place], [address], [place]. tel:[phone] Referring [facility]: [facility] & [address], [address]. tel:[phone] [facility], [address], [place], [address] , [place] tel: [phone] [facility] No Information 3 Mehbod Amir. [facility] [place], [address] [place] [address] [address], [place], [id number] , [place]. tel:[phone] Referring Provider: [facility] & [address], [address]. tel:[phone] Physician Telephone Evaluation 5-10 Min [facility], [address], [place], [address] , [place] tel: [phone] [facility] No Information 3 Mehbod Amir. [facility] [place], [address] [place] [address] [address], [place], [id number] , [place]. tel:[phone] Referring Provider: [facility] & [address], [address]. tel:[phone] [facility], [address], [place], [place], [address] , [place] tel: [phone] [facility] No Information 3 Mehbod Amir. [facility] [place], [address] [place] [address] 600, [place], [place], [address] , [place]. tel: [phone] Referring Provider: Rudi Mcneil, [facility] & [address], [address]. tel:[phone] [facility], [address], [place], [place], [address] , [place] tel: [phone] [facility] No Information 3 Brown Patel. [address] [place] [address], [place], [place], [address] , [place]. tel: [phone] Referring Provider: [facility] & [address], [address]. tel:[phone] [facility], [address], [place], [place], [address] , [place] tel: [phone] [facility] No Information 3 Mehbod Amir. [facility] [place], [address] [place] [address] 600, [place], [place], [address] , [place]. tel: [phone] Referring Provider: [facility] & [address], [address]. tel:[phone] Office/Outpat ient Visit,New, Mod [facility], [address], [place], [place], [address] , [place] tel: [phone] [facility] [place] Spinal stenosis, lumbar region with neurogenic claudication 3 Mehbod Amir. [facility] [place], [address] [place] [address] 600, [place], [place], [address] , [place]. tel: [phone] Referring Provider: Rudi Mcneil [facility] [address] [facility], [place], [address]. tel:[phone] Office/Outpat ient Visit,Est, Mod [facility], [address], [place], [place], [address] , [place] tel: [phone] [facility] Spinal stenosis, lumbar region 2-201 6 Mehbod Amir. [facility] [place], [address] 600, [place], [place], [address] , [place]. tel: [phone] Referring Provider: Lisa Mccarthy, [facility] [address] 600, [place], [address]. tel:[phone] [facility], [address], [place], [address] , [place] tel: [phone] [facility] Spinal stenosis, lumbar region 0-201 6 Brown Patel. [address] [place] [address], [place], [place], [address] , [place]. tel: [phone] Referring Provider: Lisa Mccarthy, [address] 600, [place], [address]. tel:[phone] [facility], [address], [place], [place], [address] , [place] tel: [phone] [facility] Other intervertebral disc degeneration, thoracolumbar regionSpinal stenosis, lumbar region 2201 6 Mehbod AmirNahomy [facility] [place], [address] 600, [place], [place], [address] , [place]. tel: [phone] Referring Provider: Lisa Mccarthy, [facility] [address] 600, [place], [address]. tel:[phone] [facility], [address], [place], [place], [address] , [place] tel: [phone] [facility] No Information 3-201 6 Mehbod Amir. [facility], [address], [place], [place], [address] , [place]. [phone] Referring Provider: Lisa Mccarthy, [facility] [address], [place], [address]. tel:[phone] Office/Outpat ient Visit,New, Mod [facility], [address], [place], [place], [address] , [place] tel:[phone] [facility] Other intervertebral disc degeneration, thoracolumbar regionSpinal stenosis, lumbar region 6 Shari Gonzalez. [facility], [address], [place], [place], [address] , [place]. [phone] Referring Provider: Jewel Roblero, [employer] [address], [place], [address]. tel:[phone] Family History Family Member Type Diagnosis Age At Onset No Information Payers Payer name Insurance type Covered democrat ID Authoriza tion(s) Medicare MB [id number] [facility] [address] [facility] [id number] Social History Type Description Quantity Date Captured Comments Sex Female Smoking Status No Information Chief Complaint And Reason For Visit No Information Reason For Referral Reason For Referral No Information Plan Of Treatment Date Type Action Status Appointment Rossy Salmon BOOKED Future Order: Radiology [...]
--- OUTSIDE RECORDS SUMMARY | 2024-05-03 09:57 | XMS_ITS | Referral Summary ---
Author Organization [facility] Address [address] [place] [address] Care Team Providers Care Construction Electrician Name Role Phone Jose Amaral Primary Care Provider + [phone] Dino Pretty MD Unavailable [phone] Allergies No known active allergies Medications aspirin 81 MG EC tablet Take 81 mg by mouth daily Active estradiol (VIVELLE-DOT) 0.05 MG/24HR bi-weekly patch Place 1 patch onto the skin twice a week Active lisinopril-hydrochl orothiazide (ZESTORETIC) 10-12.5 MG tabletIndications:B enign essential hypertension Take 1 tablet by mouth daily 90 tablet 3 2 Active cyclobenzaprine (FLEXERIL) 10 MG tabletIndications:L umbar foraminal stenosis Take 1 tablet (10 mg) by mouth daily as needed for muscle spasms 30 tablet 3 2 Active rosuvastatin (CRESTOR) 20 MG tabletIndications:H yperlipidemia, unspecified hyperlipidemia type Take 1 tablet (20 mg) by mouth daily 90 tablet 1 2 Active HYDROcodone-acetami nophen (NORCO) 7.5-325 MG per tabletIndications:L umbar foraminal stenosis Take 1 tablet by mouth every 4 hours as needed for severe pain 24 tablet 2 Active Active Problems Problem Noted Date Diagnosed Date Atherosclerosis of aorta 12/12/2021 History of excision of tariq a of lumbar vertebra for decompression of spinal cord 12/12/2021 History of laparoscopic cholecystectomy 12/13/19 22 Hyperlipidemia 12/12/2021 Peripheral vascular disease 12/12/2021 Lung nodule 12/12/2021 Lumbar foraminal stenosis [...] School Help Needed Not on file 03/20 Comments No Sex and Gender Information Value Date Recorded Sex Assigned at Not on file Legal Sex Female 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 HOSE BUILDER Gender Identity Not on file Sexual Orientation [...] COLONOSCOPY - HIM SCAN 06/01/2023 12:00 AM HOSE BUILDER HEPATITIS C SCREEN REFLEX TO HCV RNA QUANT AND GENOTYPE Routine 01/16/2022 10:38 AM CDT Need for hepatitis C screening test LIPID REFLEX TO DIRECT LDL PANEL Routine 01/16/2022 10:38 AM CDT Hyperlipidemia, unspecified hyperlipidemia type COMPREHENSIVE METABOLIC PANEL Routine 01/16/2022 10:38 AM CDT Hyperlipidemia, unspecified hyperlipidemia type CTA CHEST ABDOMEN PELVIS RUNOFF W CONTRAST Routine 05/15/2021 10:17 AM HOSE BUILDER Atherosclerosis of aorta (H) from Last 3 Months or Most Recently Relevant to Health Maintenance Results * COLONOSCOPY - HIM SCAN (06/01/2023 12:00 AM HOSE BUILDER) 06/01/2023 us Provider Outside PROCEDURES Final Result * Hepatitis C Screen Reflex to HCV [...] children. Dino Pretty MD LAB - BLOOD ORDERABLES F inal Result [facility]O [facility]Prot/Endo [address] [facility] [address] Building, Room [address] [place] [address], [facility] [phone] * Lipid panel reflex to direct LDL [...] ??Greater than or equal to 220 mg/dL us Dino Pretty MD LAB - BLOOD ORDERABLES F inal Result [facility] [address] Lab (no room number, 1st floor of clinic) [place] [address], [facility] [phone] * (ABNORMAL) Comprehensive metabolic panel (BMP + [...] creatinine equation which includes age and gender (Selling Underwriter et al., NEJM, DOI: 10.1056/WYZGyx4206899) Blood VENOUS BLOOD / Unknown Venipuncture / Unknown 01/16/2022 10:38 AM CDT 01/16/2022 10:38 AM CDT Dino Pretty MD LAB - BLOOD ORDERABLES F inal Result [facility] [address] Lab (no room number, 1st floor of clinic) [place] [address], [facility] [phone] * CTA Chest Abdomen Pelvis Runoff w Contrast (05/15/2021 10:17 AM HOSE BUILDER) Anatomical Region Laterality Modality Abdomen/Pelvis, SUBRAD IR OK OCEDURE, UMP CT CTA, RAD CT Computed Tomography Impressions 05/16/2021 3:46 PM HOSE BUILDER IMPRESSION: 1. Significant atherosclerotic disease throughout the [...] NELLY BRUCE DO Narrative 05/16/2021 3:46 PM HOSE BUILDER CTA CHEST, ABDOMEN, PELVIS RUNOFF WITHOUT CONTRAST DATE/TIME: 05/15/2021 10:17 AM INDICATION: Severe atherosclerosis stenosis left subclavian artery with associated ulcerative plaque. Patient complains of tingling in feet. Atherosclerosis of aorta (H). TECHNIQUE: Helical acquisition through the chest, abdomen and pelvis was performed during the arterial phase of contrast enhancement. 2D and 3D reconstructions performed by the technologist development. Dose reduction techniques were used. CONTRAST: 100mL [...] 2D and 3D reconstructions performed by the technologist development. Dose reduction techniques were used. CONTRAST: 100mL [...] BRUCE DO Shade Conteh MD IMG CT ORDERABLES Fi nal Result from Last 3 Months or Most Recently Relevant to Health Maintenance Advance Directives For more information, please contact: [phone] * Full Code (Latest Code Status on File) Date Activated Date Inactivated Comments 05/20/2021 8:01 AM Question Answer Comments Code status determined by: Discussion with pa nt/ legal decision maker * Full Code Date Activated Date Inactivated Comments 05/18/2021 12:06 AM 05/20/2021 8:01 AM All basic and advanced life-sustaining interventions are performed as appropriate Question Answer Comments Code status determined by: Discussion with pa nt/ legal decision maker Care Teams Construction Electrician Relationship Specialty Start Date End Date Jose Amaral [address] [address] PCP - General Family Medicine 04/22/21 Dino Pretty MD [address] [place] [address] Assigned PCP 11/19/21
--- OUTSIDE RECORDS SUMMARY | 2024-05-03 09:57 | XMS_ITS | Encounter Summary ---
Author Organization [facility] Address [address] [place] [address]. [place] [address] Care Team Providers Care Communication Equipment Mechanic Name Role Phone Cristin, Jose Angel Primary Care Provider + [phone] Shade Conteh MD Unavailable [phone]- [phone] Dino Pretty MD Unavailable [phone] Dino Pretty MD Unavailable [phone] Arnulfo Giron MD Unavailable [phone] Encounter Details Date Type Department Care Team (Late st Contact Info) Description 12/12/2020 External Order Results [facility] [address] [place] [address] Outside, Provider Social History Tobacco Use Types Packs/Day Years Used Date Smoking Tobacco: Never Assessed Comments Unknown Sex and Gender Information Value Date Recorded Sex Assigned at Not on file Legal Sex Female 4:43 AM LEGAL SERVICES PROFESSIONAL Gender Identity Not on file Sexual Orientation [...] CDT Verified by Diego Casillas on 04/03/2021. us Patient Reported LABORATORY Edited Result - Final ELISABETH PFT NON-INTERFACED (ONBASE SCANS) documented in this encounter Visit Diagnoses Not on filedocumented in this encounter Care Teams Communication Equipment Mechanic Relationship Specialty Start Date End Date Tyrone Amaralolathad Angel [address] [address] PCP - General Family Medicine 04/22/21 Shade Conteh MD [address] [address] Assigned Heart and Vascular Provider 04/27/21 10/30/22 Dino Pretty MD [address] [place] [address] Assigned PCP 11/19/21 Dino Pretty MD [address] [place] [address] Assigned Pain Medication Provider 07/06/22 12/25/22 Arnulfo Giron MD [address] [address] Assigned Heart and Vascular Provider 10/31/22 09/17/23 documented as of this encounter
--- OUTSIDE RECORDS SUMMARY | 2024-05-03 09:57 | XMS_ITS | Clinical Summary ---
Author Organization [facility] Address [address] [place] [address] Care Team Providers Care Material Attendant Name Role Phone Jose Amaral Primary Care Provider + [phone] Dino Pretty MD Unavailable [phone] Allergies No known active allergies Medications aspirin [...] on file Legal Sex Female 4:43 AM RESEARCH GROUP DIRECTOR Gender Identity Not on file Sexual Orientation [...] 02/26/1964 ZOSTER IMMUNIZATION (1 of 2) 02/26/2008 LUNG CANCER SCREENING 05/15/2022 05/15/2021 ANNUAL REVIEW OF HM ORDERS 12/12/2022 12/12/2021, BMP 01/16/2023 01/16/2022, 04/29, 05/17/2021, Additional history exists LIPID 01/16/2023 01/16/2022, 09/0 06/2020, 10/29/2020 FALL RISK ASSESSMENT 2023 MEDICARE ANNUAL WELLNESS VISIT 2023 PHQ-2 (once per calendar year) 2023 12/12/2021 COVID-19 Vaccine ( season) 2024 02/10/2022, 07/29/2021, 07/16/2020, Additional history exists INFLUENZA VACCINE (#1) 2024 , 03/26/2021, 03/26/2021, Additional history exists GLUCOSE 01/16/2025 01/16/2022, 04/29, 05/18/2021, Additional history exists DTAP/TDAP/TD IMMUNIZATION (2 - Td or Tdap) 01/21/2033 01/21/2023, 12/10/2004 RSV VACCINE (1 - 1-dose 75+ series) 2033 COLONOSCOPY 06/01/2033 06/01/2023 COLORECTAL CANCER SCREENING 06/01/2033 HEPATITIS C SCREENING Completed 01/16/2022 HPV IMMUNIZATION Aged Out No longer e [...] COLONOSCOPY - HIM SCAN 06/01/2023 12:00 AM RESEARCH GROUP DIRECTOR HEPATITIS C SCREEN REFLEX TO HCV RNA QUANT AND GENOTYPE Routine 01/16/2022 10:38 AM CDT Need for hepatitis C screening test LIPID REFLEX TO DIRECT LDL PANEL Routine 01/16/2022 10:38 AM CDT Hyperlipidemia, unspecified hyperlipidemia type COMPREHENSIVE METABOLIC PANEL Routine 01/16/2022 10:38 AM CDT Hyperlipidemia, unspecified hyperlipidemia type CTA CHEST ABDOMEN PELVIS RUNOFF W CONTRAST Routine 05/15/2021 10:17 AM RESEARCH GROUP DIRECTOR Atherosclerosis of aorta (H) from Last 3 Months or Most Recently Relevant to Health Maintenance Results * COLONOSCOPY - HIM SCAN (06/01/2023 12:00 AM RESEARCH GROUP DIRECTOR) 06/01/2023 Provider Outside PROCEDURES Final Result * Hepatitis [...] [facility] SPECIAL[facility] CORE/PROT/ENDO [facility] Specialty Core/Prot/Endo [address], [address] 3[address] [place], [place] [address] [phone] * Lipid panel reflex to direct LDL [...] BLOOD ORDERABLES F inal Result OX LABORATORY [facility] [address] Lab (no room number, 1st floor of clinic) [place] [address], [facility] [phone] * (ABNORMAL) Comprehensive metabolic panel (BMP + [...] and gender (Edward et al., NEJM, DOI: 10.1056/[id number]) Blood VENOUS BLOOD / Unknown Venipuncture / Unknown 01/16/2022 10:38 AM CDT 01/16/2022 10:38 AM CDT us Dino Pretty MD LAB - BLOOD ORDERABLES F inal Result [facility] [address] Lab (no room number, 1st floor of clinic) [place] [address], [facility] [phone] * CTA Chest Abdomen Pelvis Runoff w Contrast (05/15/2021 10:17 AM RESEARCH GROUP DIRECTOR) Anatomical Region Laterality Modality Abdomen/Pelvis, SUBRAD IR VA OCEDURE, UMP CT CTA, RAD CT Computed Tomography Impressions 05/16/2021 3:46 PM RESEARCH GROUP DIRECTOR IMPRESSION: 1. Significant atherosclerotic disease throughout the [...] NELLY BRUCE DO Narrative 05/16/2021 3:46 PM RESEARCH GROUP DIRECTOR CTA CHEST, ABDOMEN, PELVIS RUNOFF WITHOUT CONTRAST DATE/TIME: 05/15/2021 10:17 AM INDICATION: Severe atherosclerosis stenosis left subclavian artery with associated ulcerative plaque. Patient complains of tingling in feet. Atherosclerosis of aorta (H). TECHNIQUE: Helical acquisition through the chest, abdomen and pelvis was performed during the arterial phase of contrast enhancement. 2D and 3D reconstructions performed by the wood technologist. Dose reduction techniques were used. CONTRAST: [...] 2D and 3D reconstructions performed by the wood technologist. Dose reduction techniques were used. CONTRAST: [...] Advance Directives For more information, please contact: [phone] * Full Code (Latest Code Status on [...] pa nt/ legal decision maker Care Teams Material Attendant Relationship Specialty Start [place] [address] PCP - General Family Medicine 04/22/21 Dino Pretty MD [address] [place] [address] Assigned PCP 11/19/21
--- NOTE | 2024-05-03 10:30 | CRLHL7_ITS ---
For Patients: As a result of the Century Cures Act, medical imaging exams and procedure reports are released immediately into your electronic medical record. You may view this report before your referring provider. If you have questions, please contact your health care provider. INDICATION : Lumbar stabilization TECHNIQUE : 2View lumbar spine FINDINGS : Posterior and interbody stabilization, L3 through S1 with intact hardware. Satisfactory alignment. No significant bony abnormality. IMPRESSION : Satisfactory appearance after posterior and interbody lumbar stabilization. Dictated by Sammy Srivastava MD @ 05/03/2024 9:46:26 PM (Electronically Signed)
== END 2024-05-03 09:47 | disposition home or self-care (01) ==
LOC: RAD 09:48
PROVIDERS: PCP Physician Assistant Medical; Visit Provider Physician Assistant Surgical
DX: Z98.1 Arthrodesis status (principal)
CPT/HCPCS: 72100

== ENCOUNTER 2024-05-08 09:15 | Outpatient (CLI) | payer MEDICARE, BC, SELFPAY ==
--- OUTSIDE RECORDS SUMMARY | 2024-05-11 06:30 | XMS_ITS | Referral Summary ---
Author Organization [facility] Address [address] [place] [address] Care Team Providers Care Tube Depatcher Name Role Phone Jose Amaral Primary Care Provider + [phone] Dino Pretty MD Unavailable [phone] Allergies No known active allergies Medications aspirin [...] on file Legal Sex Female 4:43 AM TELEPHONE ENGINEER Gender Identity Not on file Sexual Orientation [...] COLONOSCOPY - HIM SCAN 06/01/2023 12:00 AM TELEPHONE ENGINEER HEPATITIS C SCREEN REFLEX TO HCV RNA QUANT AND GENOTYPE Routine 01/16/2022 10:38 AM CDT Need for hepatitis C screening test LIPID REFLEX TO DIRECT LDL PANEL Routine 01/16/2022 10:38 AM CDT Hyperlipidemia, unspecified hyperlipidemia type COMPREHENSIVE METABOLIC PANEL Routine 01/16/2022 10:38 AM CDT Hyperlipidemia, unspecified hyperlipidemia type CTA CHEST ABDOMEN PELVIS RUNOFF W CONTRAST Routine 05/15/2021 10:17 AM TELEPHONE ENGINEER Atherosclerosis of aorta (H) from Last 3 Months or Most Recently Relevant to Health Maintenance Results * COLONOSCOPY - HIM SCAN (06/01/2023 12:00 AM TELEPHONE ENGINEER) 06/01/2023 us Provider Outside PROCEDURES Final Result [...] [facility] Building, Room [address] [place] [address], [facility] [phone] * Lipid panel reflex to direct LDL [...] BLOOD ORDERABLES F inal Result OX LABORATORY [facility] [address] Lab (no room number, 1st floor of clinic) [place] [address], [facility] [phone] * (ABNORMAL) Comprehensive metabolic panel (BMP + [...] creatinine equation which includes age and gender (Commercial Appraiser et al., NEJM, DOI: [id number]/[id number]) Blood VENOUS BLOOD / Unknown Venipuncture / Unknown 01/16/2022 10:38 AM CDT 01/16/2022 10:38 AM CDT Dino Pretty MD LAB - BLOOD ORDERABLES F inal Result Pending sale to [facility] [address] Lab (no room number, 1st floor of clinic) [place] [address], [facility] [phone] * CTA Chest Abdomen Pelvis Runoff w Contrast (05/15/2021 10:17 AM TELEPHONE ENGINEER) Anatomical Region Laterality Modality Abdomen/Pelvis, SUBRAD IR [place] OCEDURE, UMP CT CTA, RAD CT Computed Tomography Impressions 05/16/2021 3:46 PM TELEPHONE ENGINEER IMPRESSION: 1. 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 Patient complains of tingling in feet. Atherosclerosis of aorta (H). TECHNIQUE: Helical acquisition through the chest, abdomen and pelvis was performed during the arterial phase of contrast enhancement. 2D and 3D reconstructions performed by the dental technologist. Dose reduction techniques were used. CONTRAST: [...] 2D and 3D reconstructions performed by the dental technologist. Dose reduction techniques were used. CONTRAST: [...] Advance Directives For more information, please contact: [phone] * Full Code (Latest Code Status on [...] pa nt/ legal decision maker Care Teams Tube Depatcher Relationship Specialty Start Date End Date Jose Amaral [address] [address] PCP - General Family Medicine 04/22/21 Dino Pretty MD [address] [place] [address] Assigned PCP 11/19/21
--- OUTSIDE RECORDS SUMMARY | 2024-05-11 06:30 | XMS_ITS | Clinical Summary ---
Author Organization [facility] Address [address] [place] [address] Care Team Providers Care Extra Hand Name Role Phone Jose Amaral Primary Care Provider + [phone] Dino Pretty MD Unavailable [phone] Allergies No known active allergies Medications aspirin [...] on file Legal Sex Female 4:43 AM CAPITAL CAMPAIGN FUNDRAISER Gender Identity Not on file Sexual Orientation [...] COLONOSCOPY - HIM SCAN 06/01/2023 12:00 AM CAPITAL CAMPAIGN FUNDRAISER HEPATITIS C SCREEN REFLEX TO HCV RNA QUANT AND GENOTYPE Routine 01/16/2022 10:38 AM CDT Need for hepatitis C screening test LIPID REFLEX TO DIRECT LDL PANEL Routine 01/16/2022 10:38 AM CDT Hyperlipidemia, unspecified hyperlipidemia type COMPREHENSIVE METABOLIC PANEL Routine 01/16/2022 10:38 AM CDT Hyperlipidemia, unspecified hyperlipidemia type CTA CHEST ABDOMEN PELVIS RUNOFF W CONTRAST Routine 05/15/2021 10:17 AM CAPITAL CAMPAIGN FUNDRAISER Atherosclerosis of aorta (H) from Last 3 Months or Most Recently Relevant to Health Maintenance Results * COLONOSCOPY - HIM SCAN (06/01/2023 12:00 AM CAPITAL CAMPAIGN FUNDRAISER) 06/01/2023 Provider Outside PROCEDURES Final Result * [...] UM SPECIALTY CORE/PROT/ENDO UM Specialty Core/Prot/Endo [address], Room [address] [place], [place] [address] [phone] * Lipid panel reflex to direct LDL [...] BLOOD ORDERABLES F inal Result OX LABORATORY [facility] [address] Lab (no room number, 1st floor of clinic) [place] [address], [facility] [phone] * (ABNORMAL) Comprehensive metabolic panel (BMP + [...] and gender (Edward et al., NEJM, DOI: [id number]) Blood VENOUS BLOOD / Unknown Venipuncture / Unknown 01/16/2022 10:38 AM CDT 01/16/2022 10:38 AM CDT us Dino Pretty MD LAB - BLOOD ORDERABLES F inal Result [facility] [address] Lab (no room number, 1st floor of clinic) [place] [address], [facility] [phone] * CTA Chest Abdomen Pelvis Runoff w Contrast (05/15/2021 10:17 AM CAPITAL CAMPAIGN FUNDRAISER) Anatomical Region Laterality Modality Abdomen/Pelvis, SUBRAD IR [place] OCEDURE, UMP CT CTA, RAD CT Computed Tomography Impressions 05/16/2021 3:46 PM CAPITAL CAMPAIGN FUNDRAISER IMPRESSION: 1. 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 Patient complains of tingling in feet. Atherosclerosis of aorta (H). TECHNIQUE: Helical acquisition through the chest, abdomen and pelvis was performed during the arterial phase of contrast enhancement. 2D and 3D reconstructions performed by the architectural technologist. Dose reduction techniques were used. CONTRAST: [...] 2D and 3D reconstructions performed by the architectural technologist. Dose reduction techniques were used. CONTRAST: [...] Advance Directives For more information, please contact: [phone] * Full Code (Latest Code Status on [...] pa nt/ legal decision maker Care Teams Extra Hand Relationship Specialty Start [place] [address] PCP - General Family Medicine 04/22/21 Dino Pretty MD [address] [place] [address] Assigned PCP 11/19/21
--- OUTSIDE RECORDS SUMMARY | 2024-05-11 06:30 | XMS_ITS | Encounter Summary ---
Author Organization [facility] Address [address] [place] [address] Care Team Providers Care Home Care Administrator Name Role Phone Cristin Jose Jeanne Primary Care Provider + [phone] Shade Conteh MD Unavailable +- [phone] Dino Pretty MD Unavailable [phone] Dino Pretty MD Unavailable [phone] Arnulfo Giron MD Unavailable [phone] Reason for Visit * Reason Onset Date Comments Refill Request 01/11/2022 Encounter Details Date Type Department Care Team (Late st Contact Info) Description 01/11/2022 MyC Refill [address] [place] [address] Dino Pretty MD [address] [place], [place] [id number] Refill Request Social History Tobacco Use Types Packs/Day Years Used Date Smoking Tobacco: Every Day Cigarettes Smokeless Tobacco: Never Alcohol Use Standard Drinks/Week Comments Yes 0 (1 standard drink = 0.6 oz pur e alcohol) PHQ-2 Answer Date Recorded PHQ-2 Score 0 12/12/2021 Comments No Sex and Gender Information Value Date Recorded Sex Assigned at Not on file Legal Sex Female 4:43 AM REGISTERED NURSE OBSTETRICS Gender Identity Not on file Sexual Orientation [...] claudication documented in this encounter Care Teams Home Care Administrator Relationship Specialty Start Date End Date Jose Amaral [address] [address] PCP - General Family Medicine 04/22/21 Shade Conteh MD [address] [place] [id number] Assigned Heart and Vascular Provider 04/27/21 10/30/22 Dino Pretty MD [address] [place], [place] [address] Assigned PCP 11/19/21 Dino Pretty MD [address] [place] [address] Assigned Pain Medication Provider 07/06/22 12/25/22 Arnulfo Giron MD [address] [place] [address] Assigned Heart and Vascular Provider 10/31/22 09/17/23 documented as of this encounter
--- OUTSIDE RECORDS SUMMARY | 2024-05-11 06:30 | XMS_ITS | Clinical Summary ---
Author Organization [facility] Address [address] [place] [address] Care Team Providers Care Forest Patrolman Name Role Phone Jose Amaral MD Primary Care Provider [phone] Source Comments You are receiving this document as you are listed as the primary care provider,follow-up provider, or the patient has been referred to you for consultation.This is in compliance with the Medicare and[facility] EHR Incentive Program,which states Providers who transition their patient to another setting of careor provider of care or refers their patient to another provider of care shouldprovide summary care record for each transition of care or referral. [facility] Active Problems Problem Noted Date Diagnosed Date [...] age to complete this topic Care Teams Forest Patrolman Relationship Specialty Start Date End Date Jose Amaral MD [address] [place] [address] PCP - General Family Practice 03/20/20
--- OUTSIDE RECORDS SUMMARY | 2024-05-11 06:30 | XMS_ITS | Clinical Summary ---
Author Organization [facility] Address [place], [place] [address] Care Team Providers Care Coutierier Name Role Phone Aracely Friedman Primary Care [...] Description 02/22/2024 1:30 PM CDT Anesthesia Event [facility] [address] [place] [address] Hernandez Rosen MD Purdy, Adam John, CRNA 02/22/2024 12:00 PM CDT - 02/22/2024 3:[address] [facility] [address] [place] [address] Lisa Mccarthy MD Decompression - Transfacet/Transforam inal L3 to: L4 Posterior Spine Fusion with Instrumentation L3 to: L4 Transforaminal Lumbar Interbody Fusion L3 to: L4 02/22/2024 9:49 AM CDT - 02/23/2024 3:20 PM CDT Hospital Encounter [facility] [address] [place] [address] Lisa Mccarthy MD [facility] [place] [place] Acute post-operative pain (Primary [...] 65+ 02/27/2024 Medical Devices Implanted Type Area Bias Machine Operator Helper Device Identifier Shelf Expiration Date Model / Serial / Lot [id number] 1-4mm 60cc Medtronic Fine Canclls Freeze Dried Implanted:Qty: 1 on 09/08/2022 by Lisa Mccarthy MD at [facility] N/A: Spine Medtronic Spine/Ortho 07/27/2026 [id number] / [id number] / [id number] one Matrix 6cc Haley Dbf Putty Dbm Implanted:Qty: 1 on 09/08/2022 by Lisa Mccarthy MD at [facility] N/A: Spine Medtronic Spine/Ortho 08/06/2024 [id number] / [id number] / Spacer Lmbr [id number] [place] Convex Stra Tlif - [id number] Implanted:Qty: 1 on 09/08/2022 by Lisa Mccarthy MD at [facility] N/A: Spine Elmer Biomet [id number] / / [id number] Straight Spacer 15h X 30l X 11w Convex Implanted:Qty: 1 on 09/08/2022 by Lisa Mccarthy MD at [facility] N/A: Spine [id number] / / [id number] Description:STRAIGHT SPACER 15H X 30L X 11W CONVEX Chi Lmbr 65x5.5mm Vitality Cvd Titnm - [id number] Implanted:Qty: 2 on 09/08/2022 by Lisa Mccarthy MD at [facility] N/A: Spine Elmer [employer] Spine [id number]. 010 / / Set Screw Lmbr 5.5-6mm Vitality Torque - [id number] Implanted:Qty: 6 on 09/08/2022 by Lisa Mccarthy MD at [facility] N/A: Spine [employer]mer [employer] Spine 07.57111. 001 / / Screw Poly 7.5x50mm Implanted:Qty: 4 on 09/08/2022 by Lisa Mccarthy MD at [facility] N/A: Spine [id number] / / Description:SCREW POLY 7.5X5 0MM Screw Poly 7.5x45mm Implanted:Qty: 2 on 09/08/2022 by Lisa Mccarthy MD at [facility] N/A: Spine [id number] / / Description:SCREW POLY 7.5X4 5MM Screw Poly 7.5 X 45 Implanted:Qty: 2 on 02/09/2023 by Lisa Mccarthy MD at [facility] N/A: Spine [id number] / / Description:SCREW POLY 7.5 X 45 Screw Poly 8.5 X 40 Implanted:Qty: 2 on 02/09/2023 by Lisa Mccarthy MD at [facility] N/A: Spine [id number] / / Description:SCREW POLY 8.5 X 40 Chi Lmbr 65x5.5mm Vitality Cvd Titnm - [id number] Implanted:Qty: 2 on 02/09/2023 by Lisa Mccarthy MD at [facility] N/A: Spine Elmer [employer] Spine 07.46936. 010 / / Set Screw Lmbr 5.5-6mm Vitality Torque - [id number] Implanted:Qty: 6 on 02/09/2023 by Lisa Mccarthy MD at [facility] N/A: Spine Elmer [employer] Spine 07.25216. 001 / / Bone 1-4mm 30cc Medtronic Chips Canclls Freeze Dried - [id number] Implanted:Qty: 1 on 02/09/2023 by Lisa Mccarthy MD at [facility] Medtronic Spine/Ortho 10/28/2026 [id number] / [id number] / Bone 1-4mm 30cc Medtronic Chips Canclls Freeze Dried - [id number] Implanted:Qty: 1 on 02/22/2024 by Lisa Mccarthy MD at [facility] N/A: Spine Medtronic Spine/Ortho [id number] 12/01/2027 [id number] / [id number] / [id number] Bone Matrix 3cc [place] Dbf Putty Db - [id number] Implanted:Qty: 1 on 02/22/2024 by Lisa Mccarthy MD at [facility] N/A: Spine Medtronic Spine/Ortho [id number] 11/30/2025 [id number] / [id number] / Spacer Lmbr [id number] Zyston Convex Stra Tlif - [id number] Implanted:Qty: 1 on 02/22/2024 by Lisa Mccarthy MD at [facility] N/A: Spine [employer]mer [employer] [id number] / / [id number] Screw Spinal 6.5x50mm Poly Tl - [id number] Implanted:Qty: 2 on 02/22/2024 by Lisa Mccarthy MD at [facility] N/A: Spine Elmer [employer] Spine [id number] / / Set Screw Lmbr 5.5-6mm Vitality Torque - [id number] Implanted:Qty: 8 on 02/22/2024 by Lisa Mccarthy MD at [facility] N/A: Spine Elmer [employer] Spine 07.52015. 001 / / Chi Lmbr 95x5.5mm Vitality Cvd Titnm - [id number] Implanted:Qty: 2 on 02/22/2024 by Lisa Mccarthy MD at [facility] N/A: Spine Elmer [employer]omet Spine 07.77666. 016 / / Explanted Type Area Bias Machine Operator Helper Device Identifier Shelf Expiration Date Model / Serial / Lot Explant Explanted:Qty: 1 on 02/22/[address] [facility] N/A: Spine Description:CHI X2 SET SCREW X6 [...] neoplasms, colon SCAN-MAMMOGRAPHY REPORT 05/05/2007 12:00 AM HASHER OPERATOR LIPID PANEL Routine 01/20/2006 10:20 AM CDT [...] @ Feb 24 2024 8:15AM (Electronically Signed) [email or web address] Jorge [facility] * Hemoglobin AM (02/23/2024 6:07 AM CDT) HEMOGLOBIN 12.7 12.0 - 16.0 g/dL 02/23/2024 6:49 AM CDT [facility] MCV 93 80 - 100 fL 02/23/2024 6:49 AM CDT [facility] Blood BLOOD SPECIMEN / Unknown Venipuncture / Unknown 02/23/2024 6:07 AM CDT 02/23/2024 6:44 AM CDT Kaur Cueva MD [facility] [address] [place] [address] * (ABNORMAL) Basic metabolic panel AM (02/23/2024 6:07 AM CDT) SODIUM 139 136 - 145 mmol/L 02/23/2024 7:29 AM CDT [facility] POTASSIUM 4.5 3.5 - 5.1 mmol/L 02/23/2024 7:29 AM CDT [facility] CHLORIDE 105 98 - 107 mmol/L 02/23/2024 7:29 AM CDT [facility] CO2,TOTAL 27 22 - 29 mmol/L 02/23/2024 7:29 AM CDT [facility] ANION GAP 7 5 - 18 02/23/2024 7:29 AM CDT [facility] GLUCOSE 138(H) 70 - 99 mg/dL 02/23/2024 7:29 AM CDT [facility] CALCIUM 8.7(L) 8.8 - 10.2 mg/dL 02/23/2024 7:29 AM CDT [facility] BUN 16 8 - 23 mg/dL 02/23/2024 7:29 AM T [facility] CREATININE 0.74 0.50 - 0.90 mg/dL 02/23/2024 7:29 AM CDT [facility] BUN/CREAT RATIO 22(H) 10 - 20 7:29 AM T [facility] eGFR 90(L) >90 mL/min/1.7 3m2 02/23/2024 7:29 AM CDT [facility] Comment:As of 2021, eG [...] 6:44 AM CDT Kaur Cueva MD CHEMISTRY [facility] [address] [place] [address], * XR SPINE LUMBAR 2 VIEWS PORTABLE [...] Feb 22 2024 ??3:24PM (Electronically Signed) Neuroradiologist [email or web address] Procedure Note Sebastián Kerr MD - 02/22/2024 [...] Feb 22 2024 3:24PM (Electronically Signed) Neuroradiologist [email or web address] Lisa Mccarthy MD GENERAL IMAGING * XR [...] Feb 22 2024 ??3:22PM (Electronically Signed) Neuroradiologist [email or web address] Procedure Note Sebastián Kerr MD - 02/22/2024 [...] Feb 22 2024 3:22PM (Electronically Signed) Neuroradiologist [email or web address] Lisa Mccarthy MD GENERAL IMAGING * HCHG [...] Block: soft Difficulty: 0 (not difficult) Virgilio Lopze CRNA ANESTHESIA PX NOTE ORDERABLES * GLUCOSE METER (02/22/2024 10:39 AM CDT) [facility] Signature GLUCOSE METER 97 65 - 100 mg/dL 02/22/2024 10:39 AM CDT [facility] Blood BLOOD SPECIMEN / Unknown 02/22/2024 10:39 AM CDT 02/22/2024 10:39 AM CDT Lisa Mccarthy MD [facility]MISTRY [facility] [address] [place] [address] * SCAN-CARDIAC STRIP (02/22/2024 12:00 AM CDT) [...] ORD * SCAN-MAMMOGRAPHY REPORT (05/05/2007 12:00 AM HASHER OPERATOR) Anatomical Region Laterality Modality Other Scanner OTHER * (ABNORMAL) LIPID PANEL (01/20/2006 10:20 AM CDT) CHOLESTEROL,TOTAL 225(H) 110 - 199 mg/dL [facility] TRIGLYCERIDES 141 40 - 149 mg/dL [facility] HDL CHOLESTEROL 38(L) >40 mg/dL [facility] CHOL/HDL RATIO 5.92(H) <4.51 [facility] LDL CHOLESTEROL 159(H) <131 mg/dL [facility] PATIENT STATUS Fasting [facility] Blood specimen (specimen) BLOOD SPECIMEN / Unknown 01/20/2006 10:20 AM CDT 01/20/2006 10:19 AM CDT Diane Zuniga MD CHEMISTRY [facility] [place]NAL ZIP [address] [place] [address] from Last 3 Months or Most Recently Relevant to Health Maintenance Insurance Payer Benefit Plan / Group Subscriber ID Effective Dates Phone Address Type MEDICARE PART A - HB USE ONLY MEDICARE PART A HB ONLY [id number] 2023-Presen t ATTN: CLAIMS [address] [place] [address] MEDICARE PART B - HB USE ONLY MEDICARE PART B HB ONLY [id number] 2023-Presen t ATTN: CLAIMS [address] [place] [address] MEDICARE - PB USE ONLY MEDICARE PB ONLY [id number] 2023-Presen t ATTN: CLAIMS [address] [place] [address] [facility] [id number] 2023-Presen t [address] [place], [place] [address] Advance Directives * Full Code (Latest Code [...] 5:30 AM 01/08/2016 10:29 AM Care Teams Coutierier Relationship Specialty Start Date End Date Aracely Friedman PCP - General 08/21/22
--- OUTSIDE RECORDS SUMMARY | 2024-05-11 06:30 | XMS_ITS | Encounter Summary ---
Author Organization [facility] Address [address] [place] [address] Care Team Providers Care Business Area Director Name Role Phone Cristin Jose Jeanne Primary Care Provider + [phone] Shade Conteh MD Unavailable +- [phone] Dino Pretty MD Unavailable [phone] Dino Pretty MD Unavailable [phone] Arnulfo Giron MD Unavailable [phone] Reason for Visit * Reason Onset Date Comments Refill Request 03/09/2022 Encounter Details Date Type Department Care Team (Late st Contact Info) Description 03/09/2022 MyC Refill [address] [place] [address] Dino Pretty MD [address] [place], [place] [address] Refill Request Social History Tobacco Use Types Packs/Day Years Used Date Smoking Tobacco: Every Day Cigarettes Smokeless Tobacco: Never Alcohol Use Standard Drinks/Week Comments Yes 0 (1 standard drink = 0.6 oz pur e alcohol) PHQ-2 Answer Date Recorded PHQ-2 Score 0 12/12/2021 Comments No Sex and Gender Information Value Date Recorded Sex Assigned at Not on file Legal Sex Female 4:43 AM TRAFFIC I MANAGER Gender Identity Not on file Sexual Orientation [...] claudication documented in this encounter Care Teams Business Area Director Relationship Specialty Start Date End Date Jose Amaral Jeanne [address] [address] PCP - General Family Medicine 04/22/21 Shade Conteh MD [address] [place] [address] Assigned Heart and Vascular Provider 04/27/21 10/30/22 Dino Pretty MD [address] [place] [address] Assigned PCP 11/19/21 Dino Pretty MD [address] [place] [address] Assigned Pain Medication Provider 07/06/22 12/25/22 Arnulfo Giron MD [address] [place] [address] Assigned Heart and Vascular Provider 10/31/22 09/17/23 documented as of this encounter
--- OUTSIDE RECORDS SUMMARY | 2024-05-11 06:30 | XMS_ITS | Encounter Summary ---
Author Organization [facility] Address [address] [place] [address]. [place] [address] Care Team Providers Care Bone Puller Name Role Phone Cristin, Jose Angel Primary Care Provider + [phone] Shade Conteh MD Unavailable +- [phone] Dino Pretty MD Unavailable [phone] Dino Pretty MD Unavailable [phone] Arnulfo Giron MD Unavailable [phone] Encounter Details Date Type Department Care Team (Late st Contact Info) Description 12/12/2020 External Order Results [facility] [address] [place] [address] Outside, Provider Social History Tobacco Use Types Packs/Day Years Used Date Smoking Tobacco: Never Assessed Comments Unknown Sex and Gender Information Value Date Recorded Sex Assigned at Not on file Legal Sex Female 4:43 AM EVP STRATEGY Gender Identity Not on file Sexual Orientation [...] on filedocumented in this encounter Care Teams Bone Puller Relationship Specialty Start Date End Date Tyrone Amaralolathad Angel [address] [address] PCP - General Family Medicine 04/22/21 Shade Conteh MD [address] [address] Assigned Heart and Vascular Provider 04/27/21 10/30/22 Dino Pretty MD [address] [place] [address] Assigned PCP 11/19/21 Dino Pretty MD [address] [place] [address] Assigned Pain Medication Provider 07/06/22 12/25/22 Arnulfo Giron MD [address] [address] Assigned Heart and Vascular Provider 10/31/22 09/17/23 documented as of this encounter
--- OUTSIDE RECORDS SUMMARY | 2024-05-11 06:30 | XMS_ITS | Encounter Summary ---
Author Organization [facility] Address [address] [place] [address] Care Team Providers Care Customer Engineer Name Role Phone Jose Amaral Jeanne Primary Care Provider + [phone] Shade Conteh MD Unavailable +- [phone] Dino Pretty MD Unavailable [phone] Dino Pretty MD Unavailable [phone] Arnulfo Giron MD Unavailable [phone] Encounter Details Date Type Department Care Team (Late st Contact Info) Description 12/24/2021 MyC Medical Advice [address] [place] [address] Dino Pretty MD [address] [place] [address] Social History Tobacco Use Types Packs/Day Years Used Date Smoking Tobacco: Every Day Cigarettes Smokeless Tobacco: Never Alcohol Use Standard Drinks/Week Comments Yes 0 (1 standard drink = 0.6 oz pur e alcohol) PHQ-2 Answer Date Recorded PHQ-2 Score 0 12/12/2021 Comments No Sex and Gender Information Value Date Recorded Sex Assigned at Not on file Legal Sex Female 4:43 AM MEDICAL STAFF PHYSICIAN Gender Identity Not on file Sexual Orientation [...] on filedocumented in this encounter Care Teams Customer Engineer Relationship Specialty Start Date End Date Jose Amaral [address] [id number] PCP - General Family Medicine 04/22/21 Shade Conteh MD [address] [place] [id number] Assigned Heart and Vascular Provider 04/27/21 10/30/22 Dino Pretty MD [address] [place] [address] Assigned PCP 11/19/21 Dino Pretty MD [address] [place] [address] Assigned Pain Medication Provider 07/06/22 12/25/22 Arnulfo Giron MD [address] [place] [address] Assigned Heart and Vascular Provider 10/31/22 09/17/23 documented as of this encounter
--- OUTSIDE RECORDS SUMMARY | 2024-05-11 06:31 | XMS_ITS | Continuity of Care Document ---
Author Organization [facility] Address [address] [place] [address] Phone Care Team Providers Care Pizza Baker Name Role Phone Shari MCCLELLAND, Lisa Unavailable [...] - Includes PSF at the same level [place] TLIF - Additional Level(s) Includes PSF at [...] [place], [address], [place], [place], [id number] , [place] tel: [phone] [employer] No Information 4 Mehbod Amir. [facility], [address] [place] [address] [address], [place], [id number] , [place]. tel: [phone] [facility], [address], [place], [place], [address] , [place] tel: [phone] [employer] Encounter for other specified surgical aftercare 4 Mehbod Amir. [facility] [place], [address] [place] [address], [place], [id number] , [place]. tel: [phone] Referring Provider: Rudi Mcneil, [facility] & [address], [address]. tel:[phone] [facility], [address], [place], [place], [id number] , [place] tel: [phone] [employer] No Information 4 Mehbod Amir. [facility] [place], [address] [place] [address], [place], [place], [address] , [place]. tel: [phone] [facility], [address], [place], [place], [id number] , [place] tel: [phone] [facility] No Information 4 Brown Patel. [address] [place] [address], [place], [id number] , [place]. tel:[phone] Referring Provider: [facility] & [address], [address]. tel:[phone] [facility], [address], [place], [place], [address] , [place] tel: [phone] [facility] No Information 4 Mehbod Amir. [facility], [address] [place] [address], [place], [place], [id number] , [place]. tel: [phone] Referring Provider: Rudi Mcneil, [facility] & [address], [address]. tel:[phone] Physician Telephone Evaluation 5-10 Min [facility], [address], [place], [place], [id number] , [place] tel: [phone] [facility] No Information 4 Mehbod Amir. [facility] [place], [address] [place] [address], [place], [place], [address] , [place]. tel: [phone] Referring Provider: Rudi Mcneil, [facility] [address], [address]. tel:[phone] Office/Outpat ient Visit,Est, Mod [facility], [address], [place], [place], [address] , [place] tel: [phone] [facility] Spinal stenosis, lumbar region with neurogenic claudication 4 Mehbod Amir. [facility] [place], [address] [place] [address], [place], [place], [address] , [place]. tel: [phone] Referring Provider: Rudi Mcneil, [facility] & [address], [address]. tel:[phone] [facility], [address], [place], [place], [id number] , [place] tel: [phone] [facility] No Information 3 Brown Patel. [address] [place] [address], [place], [place], [id number] , [place]. tel: [phone] Referring Provider: Rudi Mcneil, [facility] & [address], [address]. tel:[phone] [facility], [address], [place], [id number] , [place] tel: [phone] [facility] Encounter for other specified surgical aftercare 3 Mehbod Amir. [facility] [place], [address] [place] [address] [address], [place], [id number] , [place]. tel:[phone] Referring Provider: Rudi Mcneil, [facility] & [address], [address]. tel:[phone] [facility], [address], [place], [address] , [place] tel: [phone] [facility] No Information 3 Elder Angulo . [facility] [place], [address] [place] [address] [address], [place], [address], [place]. tel:[phone] Referring Provider: [facility] & [address], [address]. tel:[phone] [facility], [address], [place], [address] , [place] tel: [phone] [facility] No Information 3 Mehbod Amir. [facility] [place], [address] [place] [address] [address], [place], [id number] , [place]. tel:[phone] Referring Provider: [facility] & [address], [address]. tel:[phone] Physician Telephone Evaluation 5-10 Min [facility], [address], [place], [place], [address] , [place] tel: [phone] [facility] No Information 3 Mehbod Amir. [facility] [place], [address] [place] [address] [address], [place], [id number] , [place]. tel:[phone] Referring Provider: [facility] & [address], [address]. tel:[phone] [facility], [address], [place], [place], [address] , [place] tel: [phone] [facility] No Information 3 Mehbod Amir. [facility] [place], [address] [place] [address], [place], [place], [id number] , [place]. tel: [phone] Referring Provider: Rudi Mcneil, [facility] & [address], [address]. tel:[phone] [facility], [address], [place], [place], [address] , [place] tel: [phone] [facility] No Information 3 Brown Patel. [address] [place] [address], [place], [place], [address] , [place]. tel: [phone] Referring Provider: [facility] & [address], [address]. tel:[phone] [facility], [address], [place], [place], [address] , [place] tel: [phone] [facility] No Information 3 Mehbod Amir. [facility] [place], [address] [place] [address], [place], [place], [address] , [place]. tel: [phone] Referring Provider: [facility] & [address], [address]. tel:[phone] Office/Outpat ient Visit,New, Mod [facility], [address], [place], [place], [address] , [place] tel: [phone] [facility] [place] Spinal stenosis, lumbar region with neurogenic claudication 3 Mehbod Amir. [facility] [place], [address] [place] [address], [place], [place], [address] , [place]. tel: [phone] Referring Provider: Rudi Mcneil [facility] [address] [facility] [place], [place], [address]. tel:[phone] Office/Outpat ient Visit,Est, Mod [facility], [address], [place], [place], [address] , [place] tel: [phone] [facility] Spinal stenosis, lumbar region 2-201 6 Mehbod Amir. [facility] [place], [address], [place], [place], [address] , [place]. tel: [phone] Referring Provider: Lisa Mccarthy, [facility] [address], [place], [address]. tel:[phone] [facility], [address], [place], [place], [address] , [place] tel: [phone] [facility] Spinal stenosis, lumbar region 0-201 6 Brown Patel. [address] [place] [address], [place], [place], [address] , [place]. tel: [phone] Referring Provider: Lisa Mccarthy, [address], [place], [address]. tel:[phone] [facility], [address], [place], [place], [address] , [place] tel: [phone] [facility] Other intervertebral disc degeneration, thoracolumbar regionSpinal stenosis, lumbar region 2201 6 Mehbod AmirNahomy [facility] [place], [address], [place], [place], [address] , [place]. tel: [phone] Referring Provider: Lisa Mccarthy, [facility] [address], [place], [address]. tel:[phone] [facility], [address], [place], [place], [address] , [place] tel: [phone] [facility] No Information 3-201 6 Mehbod Amir. [facility], [address], [place], [place], [address] , [place]. [phone] Referring Provider: Lisa Mccarthy, [facility] [address], [place], [address]. tel:[phone] Office/Outpat ient Visit,New, Mod [facility], [address], [place], [place], [address] , [place] tel:[phone] [facility] Other intervertebral disc degeneration, thoracolumbar regionSpinal stenosis, lumbar region 6 Shari Gonzalez. [facility], [address], [place], [place], [address] , [place]. [phone] Referring Provider: Jewel Roblero, [employer] [address], [place], [address]. tel:[phone] Family History Family Member Type Diagnosis Age At Onset No Information Payers Payer name Insurance type Covered alliance party ID Authoriza tion(s) Medicare MB [id number] [facility] [id number] [facility] [id number] Social History Type Description Quantity Date Captured [...]
== END 2024-05-08 09:16 | disposition home or self-care (01) ==
LOC: NFLDREF 05-11 06:28
PROVIDERS: PCP Physician Assistant Medical; Referring Provider Family Medicine; Visit Provider Physician Assistant Medical
DX: I10 Essential (primary) hypertension (principal); E78.2 Mixed hyperlipidemia; E78.5 Hyperlipidemia, unspecified; R73.9 Hyperglycemia, unspecified
CPT/HCPCS: 80053; 80061; 84443

== ENCOUNTER 2024-06-05 09:34 | Outpatient (CLI) | payer MEDICARE, BC, SELFPAY ==
--- OUTSIDE RECORDS SUMMARY | 2024-06-05 09:38 | XMS_ITS | Clinical Summary ---
Author Organization [place] Address [address] [place] [address] Care Team Providers Care Sheet Rock Sander Name Role Phone Jose Amaral Primary Care Provider + [phone] Dino Pretty MD Unavailable [phone] Allergies No known active allergies Medications aspirin [...] Due COVID-19 MONOVALENT 12+ (Pfizer) 07/29/2021,06/28,06/25/2020 Influenza (prior to 2023) 03/17/2012,04/02/2010 Influenza Vaccine >6 months,quad, PF ,03/30/2016,04/17/2015, 009 Influenza Vaccine, 6+MO IM (QUADRIVALENT W/PRESERVATIVES) 03/26/2021 Influenza vaccine ages 6-35 months 03/26/2021 Influenza, Whole Virus 04/25/2014 TD,PF 7+ (Tenivac) 12/10/2004 Family History Medical [...] on file Legal Sex Female 4:43 AM TRAVELING INVENTORY ASSOCIATE Gender Identity Not on file Sexual Orientation Not on file Last Filed Vital Signs Vital Sign Reading Time Taken Comments Blood Pressure 136/60 03/19/2022 3:18 PM CDT Pulse 78 03/19/2022 3:18 PM CDT Temperature 36.5 C (97.7 F) 05/20/2021 7:59 AM TRAVELING INVENTORY ASSOCIATE Respiratory Rate 16 03/19/2022 3:18 PM CDT [...] 05/17/2021, Additional history exists LIPID 01/16/2023 01/16/2022, 0906/2020, 10/29/2020 FALL RISK ASSESSMENT 2023 MEDICARE ANNUAL [...] COLONOSCOPY - HIM SCAN 06/01/2023 12:00 AM TRAVELING INVENTORY ASSOCIATE HEPATITIS C SCREEN REFLEX TO HCV RNA QUANT AND GENOTYPE Routine 01/16/2022 10:38 AM CDT Need for hepatitis C screening test LIPID REFLEX TO DIRECT LDL PANEL Routine 01/16/2022 10:38 AM CDT Hyperlipidemia, unspecified hyperlipidemia type COMPREHENSIVE METABOLIC PANEL Routine 01/16/2022 10:38 AM CDT Hyperlipidemia, unspecified hyperlipidemia type CTA CHEST ABDOMEN PELVIS RUNOFF W CONTRAST Routine 05/15/2021 10:17 AM TRAVELING INVENTORY ASSOCIATE Atherosclerosis of aorta (H) from Last 3 Months or Most Recently Relevant to Health Maintenance Results * COLONOSCOPY - HIM SCAN (06/01/2023 12:00 AM TRAVELING INVENTORY ASSOCIATE) 06/01/2023 us Provider Outside PROCEDURES Final Result [...] UM SPECIALTY CORE/PROT/ENDO UM Specialty Core/Prot/Endo [address] [facility] [address] Building, Room [address] [place] [address] * Lipid panel reflex to direct LDL [...] - 01/17/2022 11:58 AM CDT Cholesterol Desirable: <200 mg/dL Triglycerides Normal: Less than 150 mg/dL Borderline High: 150-199 mg/dL High: 200-499 mg/dL Very High: Greater than or equal to 500 mg/dL Direct Measure HDL Female: Greater than or equal to 50 mg/dL Male: Greater than or equal to 40 mg/dL LDL Cholesterol Desirable: <100mg/dL Above Desirable: 100-129 mg/dL Borderline High: 130-159 mg/dL High: 160-189 mg/dL Very High: >= 190 mg/dL Non HDL Cholesterol Desirable: 130 mg/dL Above Desirable: 130-159 mg/dL Borderline High: 160-189 mg/dL High: 190-219 mg/dL Very High: Greater than or equal to 220 mg/dL us Dino Pretty MD LAB - BLOOD ORDERABLES F inal Result OX LABORATORY [facility] Lab [address] Lab (no room number, 1st floor of clinic) [place] [address], [facility] [phone] * (ABNORMAL) Comprehensive metabolic panel (BMP + [...] and gender (Edward et al., NEJ, DOI: [id number]) Blood VENOUS BLOOD / Unknown Venipuncture / Unknown 01/16/2022 10:38 AM CDT 01/16/2022 10:38 AM CDT Dino Pretty MD LAB - BLOOD ORDERABLES F inal Result [facility] [address] Lab (no room number, 1st floor of clinic) [place] [address], [facility] [phone] * CTA Chest Abdomen Pelvis Runoff w Contrast (05/15/2021 10:17 AM TRAVELING INVENTORY ASSOCIATE) Anatomical Region Laterality Modality Abdomen/Pelvis, SUBRAD IR MS OCEALISA, UMP CT CTA, RAD CT Computed Tomography Impressions 05/16/2021 3:46 PM TRAVELING INVENTORY ASSOCIATE IMPRESSION: 1. Significant atherosclerotic disease throughout the [...] NELLY BRUCE DO Narrative 05/16/2021 3:46 PM TRAVELING INVENTORY ASSOCIATE CTA CHEST, ABDOMEN, PELVIS RUNOFF WITHOUT CONTRAST DATE/TIME: 05/15/2021 10:17 AM INDICATION: Severe atherosclerosis stenosis left subclavian artery with associated ulcerative plaque. Patient complains of tingling in feet. Atherosclerosis of aorta (H). TECHNIQUE: Helical acquisition through the chest, abdomen and pelvis was performed during the arterial phase of contrast enhancement. 2D and 3D reconstructions performed by the production control technologist. Dose reduction techniques were used. CONTRAST: [...] 2D and 3D reconstructions performed by the production control technologist. Dose reduction techniques were used. CONTRAST: [...] Advance Directives For more information, please contact: [phone] * Full Code (Latest Code Status on [...] patie nt/ legal decision maker Care Teams Sheet Rock Sander Relationship Specialty Start Date End Date Jose Amaral [address] [address] PCP - General Family Medicine 04/22/21 Dino Pretty MD [address] [place] [address] Assigned PCP 11/19/21
--- OUTSIDE RECORDS SUMMARY | 2024-06-05 09:39 | XMS_ITS | Referral Summary ---
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+ (Tenivac) 12/10/2004 Social History Tobacco [...] on file Legal Sex Female 4:43 AM SUBSTATION SUPERINTENDENT Gender Identity Not on file Sexual Orientation Not on file Last Filed Vital Signs Vital Sign Reading Time Taken Comments Blood Pressure 136/60 03/19/2022 3:18 PM CDT Pulse 78 03/19/2022 3:18 PM CDT Temperature 36.5 C (97.7 F) 05/20/2021 7:59 AM SUBSTATION SUPERINTENDENT Respiratory Rate 16 03/19/2022 3:18 PM CDT [...] COLONOSCOPY - HIM SCAN 06/01/2023 12:00 AM SUBSTATION SUPERINTENDENT HEPATITIS C SCREEN REFLEX TO HCV RNA QUANT AND GENOTYPE Routine 01/16/2022 10:38 AM CDT Need for hepatitis C screening test LIPID REFLEX TO DIRECT LDL PANEL Routine 01/16/2022 10:38 AM CDT Hyperlipidemia, unspecified hyperlipidemia type COMPREHENSIVE METABOLIC PANEL Routine 01/16/2022 10:38 AM CDT Hyperlipidemia, unspecified hyperlipidemia type CTA CHEST ABDOMEN PELVIS RUNOFF W CONTRAST Routine 05/15/2021 10:17 AM SUBSTATION SUPERINTENDENT Atherosclerosis of aorta (H) from Last 3 Months or Most Recently Relevant to Health Maintenance Results * COLONOSCOPY - HIM SCAN (06/01/2023 12:00 AM SUBSTATION SUPERINTENDENT) 06/01/2023 us Provider Outside PROCEDURES Final Result [...] UM SPECIALTY CORE/PROT/ENDO UM Specialty Core/Prot/Endo 500 [facility], Room [address] [phone] * Lipid panel reflex to direct LDL [...] BLOOD ORDERABLES F inal Result OX LABORATORY [facility] Lab [address] Lab (no room number, 1st floor of clinic) [place] [address], [place] [phone] * (ABNORMAL) Comprehensive metabolic panel (BMP + [...] and gender (Edward et al., NEJM, DOI: [id number]) Blood VENOUS BLOOD / Unknown Venipuncture / Unknown 01/16/2022 10:38 AM CDT 01/16/2022 10:38 AM CDT us Dino Pretty MD LAB - BLOOD ORDERABLES F inal Result OX [facility] Lab [address] Lab (no room number, 1st floor of clinic) [place] [address], [facility] [phone] * CTA Chest Abdomen Pelvis Runoff w Contrast (05/15/2021 10:17 AM SUBSTATION SUPERINTENDENT) Anatomical Region Laterality Modality Abdomen/Pelvis, SUBRAD IR NV OCEDURE, UMP CT CTA, RAD CT Computed Tomography Impressions 05/16/2021 3:46 PM SUBSTATION SUPERINTENDENT IMPRESSION: 1. Significant atherosclerotic disease throughout the [...] NELLY BRUCE DO Narrative 05/16/2021 3:46 PM SUBSTATION SUPERINTENDENT CTA CHEST, ABDOMEN, PELVIS RUNOFF WITHOUT CONTRAST DATE/TIME: 05/15/2021 10:17 AM INDICATION: Severe atherosclerosis stenosis left subclavian artery with associated ulcerative plaque. Patient complains of tingling in feet. Atherosclerosis of aorta (H). TECHNIQUE: Helical acquisition through the chest, abdomen and pelvis was performed during the arterial phase of contrast enhancement. 2D and 3D reconstructions performed by the echo technologist. Dose reduction techniques were used. CONTRAST: [...] 2D and 3D reconstructions performed by the echo technologist. Dose reduction techniques were used. CONTRAST: [...] Advance Directives For more information, please contact: [phone] * Full Code (Latest Code Status on [...] pa nt/ legal decision maker Care Teams Fish Technologist Relationship Specialty Start Date End Date Jose Amaral [address] [address] PCP - General Family Medicine 04/22/21 Dino Pretty MD [address] [place] [address] Assigned PCP 11/19/21
--- OUTSIDE RECORDS SUMMARY | 2024-06-05 09:39 | XMS_ITS | Continuity of Care Document ---
Author Organization [facility] Address [address] [place] [address] Phone Care Team Providers Care Corner Trimmer Operator Name Role Phone Jorge Fong Unavailable Unavailable Allergies, Adverse Reactions, Alerts Substance [...] Procedures Procedure Date POSTOP FOLLOW-UP VISIT Telephone 2023 Postop Followup Visit X Ray Exam Entire [...] - Includes PSF at the same level Ga TLIF - Additional Level(s) Includes PSF at [...] [place], [address], [place], [place], [address] , [place] tel: [phone] [employer] No Information 4 Brown Jorge. [address] [place] [address] 600, [place], [place], [address] , [place]. tel: [phone] Referring Provider: Rudi Mcneil, [facility] & [address], [address]. tel:[phone] [facility], [address], [place], [place], [address] , [place] tel: [phone] [employer] Encounter for other specified surgical aftercare 4 Menikolay Rojasr. [facility], [address], [place], [place], [address] , [place]. tel:[phone] Referring Provider: Rudi Mcneil, [address], [address]. tel:[phone] [facility], [address], [place], [place], [address] , [place] tel: [phone] [employer] No Information 4 Mehbod Amir. [facility], [address], [place], [place], [address] , [place]. tel:[phone] [facility], [address], [place], [place], [address] , [place] tel: [phone] [facility] No Information 4 Brown Jorge. [address], [place], [address] , [place]. tel: [phone] Referring Provider: Rudi Mcneil, [facility] & [address], [address]. tel:[phone] [facility], [address], [place], [place], [address] , [place] tel: [phone] [facility] No Information 4 Mehbod Amir. [facility], [address] [place] [address] 600, [place], [place], [address] , [place]. tel: [phone] Referring Provider: Rudi Mcneil, [facility] & [address], [address]. tel:[phone] Physician Telephone Evaluation 5-10 Min [facility], [address], [place], [place], [address] , [place] tel: [phone] [facility] No Information 4 Mehbod Amir. [facility], [address] [place] [address] 600, [place], [place], [address] , [place]. tel:[phone] Referring Provider: Rudi Mcneil, [facility] & [address], [address]. [phone] Office/Outpat ient Visit,Est, Mod [facility], [address], [place], [place], [address] , [place] tel: [phone] [facility] Spinal stenosis, lumbar region with neurogenic claudication 4 Mehbod Amir. [facility], [address] [place] [address] [address], [place], [place], [address] , [place]. tel:[phone] Referring Provider: Rudi Mcneil, [facility] & [address], [address]. tel:[phone] [facility], [address], [place], [place], [address] , [place] tel: [phone] [facility] No Information 3 Brown Patel. [address] [place] [address] 600, [place], [place], [address] , [place]. tel:[phone] Referring Provider: Rudi Mcneil, [facility] & [address], [address]. tel:[phone] [facility], [address], [place], [place], [address] , [place] [phone] [facility] Encounter for other specified surgical aftercare 3 Mehbod Amir. [facility], [address] [place] [address] [address], [place], [place], [address] , [place]. [phone] Referring Provider: Rudi Mcneil, [facility] & [address], [address]. tel:[phone] [facility], [address], [place], [place], [address] , [place] tel:[phone] [facility] No Information 3 Elder Angulo . [facility], [address] [place] [address] [address], [place], [address], [place]. [phone] Referring Provider: Rudi Mcneil, [facility] & [address], [address]. tel:[phone] [facility], [address], [place], [place], [address] , [place] tel:[phone] [facility] No Information 3 Mehbod Amir. [facility], [address] [place] [address] [address], [place], [place], [address] , [place]. [phone] [facility] [address], [address]. tel:[phone] Physician Telephone Evaluation 5-10 Min [facility], [address], [place], [place], [address] , [place] tel:[phone] [facility] No Information 3 Mehbod Amir. [facility], [address] [place] [address] 600, [place], [place], [address] , [place]. tel: [phone] Referring Provider: Rudi Mcneil, [facility] & [address], [address]. tel:[phone] [facility], [address], [place], [place], [address] , [place] tel: [phone] [facility] No Information 3 Mehbod Amir. [facility], [address], [place], [place], [address] , [place]. tel: [phone] Referring Provider: Rudi Mcneil, [facility] & [address], [address]. tel:[phone] [facility], [address], [place], [place], [address] , [place] tel: [phone] [facility] No Information 3 Eckroth Jorge. [address] [place] [address] 600, [place], [place], [address] , [place]. tel: [phone] Referring Provider: Rudi Mcneil, [facility] & [address], [address]. tel:[phone] [facility], [address], [place], [place], [address] , [place] tel: [phone] [facility] No Information 3 Mehbod Amir. [facility], [address] [place] [address] 600, [place], [place], [address] , [place]. tel: [phone] Referring Provider: Rudi Mcneil, [facility] & [address], [address]. tel:[phone] Office/Outpat ient Visit,New, Mod [facility], [address], [place], [place], [address] , [place] tel: [phone] [facility] Spinal stenosis, lumbar region with neurogenic claudication Feb-0 9-202 3 Mehbod Amir. [facility], [address] [place] [address] 600, [place], [place], [address] , [place]. tel: [phone] Referring Provider: Rudi Mcneil, [facility] & [address], [place], [address]. tel:[phone] Office/Outpat ient Visit,Est, Mod [facility], [address], [place], [place], [address] , [place] tel: [phone] [facility] Spinal stenosis, lumbar region 2-201 6 Mehbod Amir. [facility], [address] [place] [address] 600, [place], [place], [address] , [place]. tel: [phone] Referring Provider: Lisa Mccarthy, [facility] [place] [address], [place], [address]. tel:[phone] [facility], [address], [place], [place], [address] , [place] tel: [phone] [facility] Spinal stenosis, lumbar region 0-201 6 Eckroth Jorge. [address] [place] [address] 600, [place], [place], [address] , [place]. tel: [phone] Referring Provider: Lisa Mccarthy, [facility] [place] [address], [place], [address]. tel:[phone] [facility], [address], [place], [place], [address] , [place] tel: [phone] [facility] Other intervertebral disc degeneration, thoracolumbar regionSpinal stenosis, lumbar region 2-201 6 Mehbod Amir. [facility], [address] [place] [address] 600, [place], [place], [address] , [place]. tel: [phone] Referring Provider: Lisa Mccarthy, [facility] [place] [address], [place], [address]. tel:[phone] [facility], [address], [place], [place], [address] , [place] tel:[phone] [facility] No Information 6 Mehbrod Rojasr. [facility], [address], [place], [place], [address] , [place]. tel:[phone] Referring Provider: Lisa Mccarthy, [facility] [address], [place], [address]. [phone] Office/Outpat ient Visit,New, [facility], [address], [place], [place], [address] , [place] tel:[phone] [facility] Other intervertebral disc degeneration, thoracolumbar regionSpinal stenosis, lumbar region 6 Mehbod Crystalr. [facility], [address], [place], [place], [address] , [place]. tel:[phone] Referring Provider: Jewel Roblero, [address], [address]. tel:[phone] Family History Family Member Type Diagnosis Age At Onset No Information Payers Payer name Insurance type Covered alliance party ID Authorjim pratt(s) Medicare MB [id number] [facility] [address] [facility] [id number] Social History Type Description Quantity Date Captured [...] t No Information Instructions Date Instruction Additional Funmir trevor Instructed to return to General Practitioner [...]
--- OUTSIDE RECORDS SUMMARY | 2024-06-05 09:39 | XMS_ITS | Clinical Summary ---
Author Organization [facility] Address [place], [place] [address] Care Team Providers Care Medical Records Field Technician Name Role Phone Aracely Friedman Primary Care Provider Unava ilable Allergies No known active allergies Medications rosuvastatin (CRESTOR) 20 mg tablet Take 1 Tablet by mouth once daily. 1 Active aspirin (ECOTRIN) 81 mg enteric coated tablet Take 81 mg by mouth once daily. Active estradiol 0.0375 mg/24 hr SEMIWEEKLY patch Apply 1 Patch on dry, clean, hairless skin every Wednesday and . Active lisinopriL (PRINIVIL; ZESTRIL) 10 mg tablet Take 10 mg by mouth once daily. Active acetaminophen (TYLENOL EXTRA STRGTH) 500 mg tabletIndicati ons:Acute post-operative pain Take 2 Tablets (1,000 mg) by mouth every 6 hours if needed for Pain. Max acetaminophen dose: 4000mg in 24 hrs. 4 Active oxyCODONE (ROXICODONE) 5 mg immediate release tabletIndicati ons:Acute post-operative pain Take 1-2 Tablets (5-10 mg) by mouth every 4 hours if needed for Pain (for severe pain.). 35 Tablet 02/23/2024 1:46 PM CDT 4 Active sennosides-doc usate (SENOKOT S) (8.6-50 mg) tabletIndicati ons:Constipati on due to opioid therapy Take 1-4 Tablets by mouth two times daily. 30 Tablet 02/23/2024 1:46 PM CDT 4 Active methocarbamoL (ROBAXIN) 500 mg tabletIndicati ons:Acute post-operative pain Take 1 Tablet (500 mg) by mouth every 6 hours if needed for Muscle Spasm. 30 Tablet 02/23/2024 1:46 PM CDT 4 Active WalkerIndicati ons:Lumbar foraminal stenosis Walker with front wheels for home use for 3 months. 1 Each 4 Active Active Problems Problem Noted Date Diagnosed [...] and Fami ly Not on file 09/04/2022 Comments No Sex and Gender Information Value Date Recorded Sex Assigned at Not on file Legal Sex Female 6:32 AM SIZE WORKER Gender Identity Not on file Sexual Orientation [...] 71 02/23/2024 8:04 AM CDT Temperature 37.3 C (99.1 F) 02/23/2024 8:04 AM CDT Respiratory Rate 18 02/23/2024 8:04 AM CDT [...] for age 45-75 01/20/2011 01/20/2006, 09/18/2002, 09/18/2002 RSV vaccine for adults or pr egnancy (1 - Risk 60-74 years 1-dose series) 2018 Colonoscopy through age 75 04/07/2020 04/07/2010, DEXA/DXA scan for age 65+ 2023 Medicare Wellness for age 65+ 2023 COVID-19 vaccine series ( season) 2024 02/10/2022, 07/29/2021 Influenza for age 65+ 02/27/2024 Medical Devices Implanted Type Area Batting Machine Operator Insulation Device Identifier Shelf Expiration Date Model / Serial / Lot [id number] one 1-4mm 60cc Medtronic Fine Canclls Freeze Dried Implanted:Qty: 1 on 09/08/2022 by Lisa Mccarthy MD at [facility] N/A: Spine Medtronic Spine/Ortho 07/27/2026 [id number] / [id number] / [id number] one Matrix 6cc [place] Dbf Putty Dbm Implanted:Qty: 1 on 09/08/2022 by Lisa Mccarthy MD at [facility] N/A: Spine Medtronic Spine/Ortho 08/06/2024 [id number] / [id number] / Spacer Lmbr [id number] [place] Convex Stra Tlif - [id number] Implanted:Qty: 1 on 09/08/2022 by Lisa Mccarthy MD at [facility] N/A: Spine Elmer [employer] [id number] / / [id number] Straight Spacer 15h X 30l X 11w Convex Implanted:Qty: 1 on 09/08/2022 by Lisa Mccarthy MD at [facility] N/A: Spine [id number] / / [id number] Description:STRAIGHT SPACER 15H X 30L X 11W CONVEX Chi Lmbr 65x5.5mm Vitality Cvd Titnm - [id number] Implanted:Qty: 2 on 09/08/2022 by Lisa Mccarthy MD at [facility] N/A: Spine [employer] Spine [id number]. 010 / / Set Screw Lmbr 5.5-6mm Vitality Torque - [id number] Implanted:Qty: 6 on 09/08/2022 by Lisa Mccarthy MD at [facility] N/A: Spine [employer] Spine [id number]. 001 / / Screw Poly 7.5x50mm Implanted:Qty: 4 on 09/08/2022 by Lisa Mccarthy MD at [facility] N/A: Spine [id number] / / Description:SCREW POLY 7.5X5 0MM Screw Poly 7.5x45mm Implanted:Qty: 2 on 09/08/2022 by Lisa Mccarthy MD at [facility] N/A: Spine [id number] / / Description:SCREW POLY 7.5X4 5MM Screw Poly 7.5 X 45 Implanted:Qty: 2 on 02/09/2023 by Lisa Mccarthy MD at [facility] N/A: Spine [id number] / / Description:SCREW POLY 7.5 X 45 Screw Poly 8.5 X 40 Implanted:Qty: 2 on 02/09/2023 by Lisa Mccarthy MD at [facility] N/A: Spine [id number] / / Description:SCREW POLY 8.5 X 40 Chi Lmbr 65x5.5mm Vitality Cvd Titnm - [id number] Implanted:Qty: 2 on 02/09/2023 by Lisa Mccarthy MD at [facility] N/A: Spine [employer] Spine [id number]. 010 / / Set Screw Lmbr 5.5-6mm Vitality Torque - [id number] Implanted:Qty: 6 on 02/09/2023 by Lisa Mccarthy MD at [facility] N/A: Spine [employer] Spine 07.19006. 001 / / Bone 1-4mm 30cc Medtronic Chips Canclls Freeze Dried - [id number] Implanted:Qty: 1 on 02/09/2023 by Lisa Mccarthy MD at [facility] Medtronic Spine/Ortho 10/28/2026 [id number] / [id number] / Bone 1-4mm 30cc Medtronic Chips Canclls Freeze Dried - [id number] Implanted:Qty: 1 on 02/22/2024 by Lisa Mccarthy MD at [facility] N/A: Spine Medtronic Spine/Ortho [id number] 12/01/2027 [id number] / [id number] Bone Matrix 3cc Haley Dbf Putty Dbm - [id number] Implanted:Qty: 1 on 02/22/2024 by Lisa Mccarthy MD at [facility] N/A: Spine Medtronic Spine/Ortho [id number] 11/30/2025 [id number] / [id number] / Spacer Lmbr [id number] Zyston Convex Stra Tlif - [id number] Implanted:Qty: 1 on 02/22/2024 by Lisa Mccarthy MD at [facility] N/A: Spine [employer] [id number] / / [id number] Screw Spinal 6.5x50mm Poly Tl - [id number] Implanted:Qty: 2 on 02/22/2024 by Lisa Mccarthy MD at [facility] N/A: Spine [employer] Spine [id number] / / Set Screw Lmbr 5.5-6mm Vitality Torque - [id number] Implanted:Qty: 8 on 02/22/2024 by Lisa Mccarthy MD at [facility] N/A: Spine [employer] Spine 07.88980. 001 / / Chi Lmbr 95x5.5mm Vitality Cvd Titnm - [id number] Implanted:Qty: 2 on 02/22/2024 by Lisa Mccarthy MD at [facility] N/A: Spine [employer] Spine 07.68421. 016 / / Explanted Type Area Batting Machine Operator Insulation Device Identifier Shelf Expiration Date Model / Serial / Lot Explant Explanted:Qty: 1 on 02/22/2024 at [facility] N/A: Spine Description:CHI X2 SET SCREW X6 Procedures Procedure Name Priority Date/Time Associated Diagnosis Comments COLONOSCOPY SCREENING Routine 04/07/2010 Special screening for malignant neoplasms, colon SCAN-MAMMOGRAPHY REPORT 05/05/2007 12:00 AM SIZE WORKER LIPID PANEL Routine 01/20/2006 10:20 AM CDT Screening Lipid Disorders from Last 3 Months or Most Recently Relevant to Health Maintenance Results * COLONOSCOPY SCREENING (04/07/2010) us Anthony Cohen MD GI PROCEDURE ORD Final Re sult * SCAN-MAMMOGRAPHY REPORT (05/05/2007 12:00 AM SIZE WORKER) Anatomical Region Laterality Modality Other us Scanner OTHER Final Result * (ABNORMAL) LIPID PANEL (01/20/2006 10:20 AM CDT) CHOLESTEROL,TOTAL 225(H) 110 - 199 mg/dL [facility] TRIGLYCERIDES 141 40 - 149 mg/dL [facility] HDL CHOLESTEROL 38(L) >40 mg/dL [facility] CHOL/HDL RATIO 5.92(H) <4.51 [facility] LDL CHOLESTEROL 159(H) <131 mg/dL [facility] PATIENT STATUS Fasting [facility] Blood specimen (specimen) BLOOD SPECIMEN / Unknown 01/20/2006 10:20 AM CDT 01/20/2006 10:19 AM CDT Diane Zuniga MD CHEMISTRY F inal Result [facility] INTERNAL ZIP [address] [address] from Last 3 Months or Most Recently Relevant to Health Maintenance Insurance MEDICARE PART A HB ONLY MEDICARE PART B HB ONLY [facility] MEDICARE PB ONLY Advance Directives * Full Code (Latest Code [...] 5:30 AM 01/08/2016 10:29 AM Care Teams Medical Records Field Technician Relationship Specialty Start Date End Date Aracely Friedman PCP - General 08/21/22
--- OUTSIDE RECORDS SUMMARY | 2024-06-05 09:39 | XMS_ITS | Encounter Summary ---
Author Organization [facility] Address [address] [place] [address] Care Team Providers Care Mine Car Repairer Name Role Phone Cristin Jose Jeanne Primary Care Provider + [phone] Shade Conteh MD Unavailable +- [phone] Dino Pretty MD Unavailable [phone] Dino Pretty MD Unavailable [phone] Arnulfo Giron MD Unavailable [phone] Reason for Visit * Reason Onset Date Comments Refill Request 01/11/2022 Encounter Details Date Type Department Care Team (Late st Contact Info) Description 01/11/2022 MyC Refill [address] [place] [address] Dino Pretty MD [address] [place], [place] [id number] Refill Request Social History Tobacco Use Types Packs/Day Years Used Date Smoking Tobacco: Every Day Cigarettes Smokeless Tobacco: Never Alcohol Use Standard Drinks/Week Comments Yes 0 (1 standard drink = 0.6 oz pur e alcohol) PHQ-2 Answer Date Recorded PHQ-2 Score 0 12/12/2021 Comments No Sex and Gender Information Value Date Recorded Sex Assigned at Not on file Legal Sex Female 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 INTERN Gender Identity Not on file Sexual Orientation [...] claudication documented in this encounter Care Teams Mine Car Repairer Relationship Specialty Start Date End Date Jose Amaral [address] [address] PCP - General Family Medicine 04/22/21 Shade Conteh MD [address] [place] [address] Assigned Heart and Vascular Provider 04/27/21 10/30/22 Dino Pretty MD [address] [place], [place] [address] Assigned PCP 11/19/21 Dino Pretty MD [address] [place] [address] Assigned Pain Medication Provider 07/06/22 12/25/22 Arnulfo Giron MD [address] [place] [address] Assigned Heart and Vascular Provider 10/31/22 09/17/23 documented as of this encounter
--- OUTSIDE RECORDS SUMMARY | 2024-06-05 09:39 | XMS_ITS | Encounter Summary ---
Author Organization [facility] Address [address] [place] [address] Care Team Providers Care Fire Prevention Captain Name Role Phone Jose Amaral Jeanne Primary Care Provider + [phone] Shade Conteh MD Unavailable +- [phone] Dino Pretty MD Unavailable [phone] Dino Pretty MD Unavailable [phone] Arnulfo Giron MD Unavailable [phone] Encounter Details Date Type Department Care Team (Late st Contact Info) Description 12/24/2021 MyC Medical Advice [address] [place] [address] Dino Pretty MD [address] [place] [address] Social History Tobacco Use Types Packs/Day Years Used Date Smoking Tobacco: Every Day Cigarettes Smokeless Tobacco: Never Alcohol Use Standard Drinks/Week Comments Yes 0 (1 standard drink = 0.6 oz pur e alcohol) PHQ-2 Answer Date Recorded PHQ-2 Score 0 12/12/2021 Comments No Sex and Gender Information Value Date Recorded Sex Assigned at Not on file Legal Sex Female 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 NURSE Gender Identity Not on file Sexual Orientation [...] on filedocumented in this encounter Care Teams Fire Prevention Captain Relationship Specialty Start Date End Date Jose Amaral [address] [id number] PCP - General Family Medicine 04/22/21 Shade Conteh MD [address] [place] [id number] Assigned Heart and Vascular Provider 04/27/21 10/30/22 Dino Pretty MD [address] [place] [address] Assigned PCP 11/19/21 Dino Pretty MD [address] [place] [address] Assigned Pain Medication Provider 07/06/22 12/25/22 Arnulfo Giron MD [address] [place] [address] Assigned Heart and Vascular Provider 10/31/22 09/17/23 documented as of this encounter
--- OUTSIDE RECORDS SUMMARY | 2024-06-05 09:39 | XMS_ITS | Clinical Summary ---
Author Organization [facility] Address [address] [place] [address] Care Team Providers Care Transportation Lead Name Role Phone Jose Amaral MD Primary Care Provider [phone] Source Comments You are receiving this document as you are listed as the primary care provider,follow-up provider, or the patient has been referred to you for consultation.This is in compliance with the Medicare and[facility] EHR Incentive Program,which states Providers who transition their patient to another setting of careor provider of care or refers their patient to another provider of care shouldprovide summary care record for each transition of care or referral. [facility] Problems Problem Noted Date Diagnosed Date [...] 2024 07/16/2020, 06/25/2020 Influenza (#1) 2024 03/13/2019, 10/06/2014, 04/25/2014, Additional history exists RSV (1 - [...] age to complete this topic Care Teams Transportation Lead Relationship Specialty Start Date End Date Jose Amaral MD [address] [place] [address] PCP - General Family Practice 03/20/20
--- OUTSIDE RECORDS SUMMARY | 2024-06-05 09:39 | XMS_ITS | Encounter Summary ---
Author Organization [facility] Address [address] [place] [address]. [place] [address] Care Team Providers Care Acoustical Tile Drill Press Operator Name Role Phone Cristin, Jose Angel Primary Care Provider + [phone] Shade Conteh MD Unavailable +- [phone] Dino Pretty MD Unavailable [phone] Dino Pretty MD Unavailable [phone] Arnulfo Giron MD Unavailable [phone] Encounter Details Date Type Department Care Team (Late st Contact Info) Description 12/12/2020 External Order Results [facility] [address] [place] [address] Outside, Provider Social History Tobacco Use Types Packs/Day Years Used Date Smoking Tobacco: Never Assessed Comments Unknown Sex and Gender Information Value Date Recorded Sex Assigned at Not on file Legal Sex Female 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 MULTIMEDIA DEVELOPER Gender Identity Not on file Sexual Orientation [...] on filedocumented in this encounter Care Teams Acoustical Tile Drill Press Operator Relationship Specialty Start Date End Date Tyrone Amaralolathad Angel [address] [address] PCP - General Family Medicine 04/22/21 Shade Conteh MD [address] [address] Assigned Heart and Vascular Provider 04/27/21 10/30/22 Dino Pretty MD [address] [place] [address] Assigned PCP 11/19/21 Dino Pretty MD [address] [place] [address] Assigned Pain Medication Provider 07/06/22 12/25/22 Arnulfo Giron MD [address] [address] Assigned Heart and Vascular Provider 10/31/22 09/17/23 documented as of this encounter
--- OUTSIDE RECORDS SUMMARY | 2024-06-05 09:39 | XMS_ITS | Encounter Summary ---
Author Organization [facility] Address [address] [place] [address] Care Team Providers Care Painter Decorator Name Role Phone Cristin Jose Jeanne Primary Care Provider + [phone] Shade Conteh MD Unavailable +- [phone] Dino Pretty MD Unavailable [phone] Dino Pretty MD Unavailable [phone] Arnulfo Giron MD Unavailable [phone] Reason for Visit * Reason Onset Date Comments Refill Request 03/09/2022 Encounter Details Date Type Department Care Team (Late st Contact Info) Description 03/09/2022 MyC Refill [address] [place] [address] Dino Pretty MD [address] [place], [place] [id number] Refill Request Social History Tobacco Use Types Packs/Day Years Used Date Smoking Tobacco: Every Day Cigarettes Smokeless Tobacco: Never Alcohol Use Standard Drinks/Week Comments Yes 0 (1 standard drink = 0.6 oz pur e alcohol) PHQ-2 Answer Date Recorded PHQ-2 Score 0 12/12/2021 Comments No Sex and Gender Information Value Date Recorded Sex Assigned at Not on file Legal Sex Female 4:43 AM DORR OPERATOR Gender Identity Not on file Sexual Orientation [...] claudication documented in this encounter Care Teams Painter Decorator Relationship Specialty Start Date End Date Jose Amaral Jeanne [address] [address] PCP - General Family Medicine 04/22/21 Shade Conteh MD [address] [place] [address] Assigned Heart and Vascular Provider 04/27/21 10/30/22 Dino Pretty MD [address] [place] [address] Assigned PCP 11/19/21 Dino Pretty MD [address] [place] [address] Assigned Pain Medication Provider 07/06/22 12/25/22 Arnulfo Giron MD [address] [place] [address] Assigned Heart and Vascular Provider 10/31/22 09/17/23 documented as of this encounter
--- NOTE | 2024-06-05 10:00 | CRLHL7_ITS ---
For Patients: As a result of the Century Cures Act, medical imaging exams and procedure reports are released immediately into your electronic medical record. You may view this report before your referring provider. If you have questions, please contact your health care provider. INDICATION: Lung cancer screening. History of smoking. High risk patient with greater than 20 pack-year smoking history. TECHNIQUE: Low-dose lung cancer screening non-contrast CT chest. Dose reduction techniques were used. COMPARISON: 06/04/2023, 08/05/2022, 03/11/2022 FINDINGS: NODULES: Noncalcified cluster of nodules within the right middle lobe is present in the periphery measuring up to 8.4 millimeters. Calcified nodule within the right upper lobe is unchanged measuring 1.1 cm. LUNGS AND PLEURA: Emphysema. MEDIASTINUM: Atherosclerotic changes. Stable subcentimeter lymph nodes. Calcified right hilar lymph nodes are present. CORONARY ARTERY CALCIFICATION: Present. LIMITED UPPER ABDOMEN: Calcified splenic granulomas. Gallbladder absent. MUSCULOSKELETAL: No fracture. IMPRESSION: Clustered noncalcified nodules within the right middle lobe measuring up to 8.4 millimeters, similar to 03/11/2022. These appear to somewhat wax and wane over multiple prior CT scans. LUNG-RADS CATEGORY: 2. Benign. RADIOLOGIST RECOMMENDATION: Follow-up in 1 year. Please note that all CT scans at this facility use dose modulation, iterative reconstruction, and/or weight-based dosing when appropriate to reduce radiation dose to as low as reasonably achievable. Dictated by Isai Martell MD @ 06/05/2024 10:37:08 AM (Electronically Signed)
== END 2024-06-05 09:35 | disposition home or self-care (01) ==
LOC: CT 09:35
PROVIDERS: PCP Physician Assistant Medical; Visit Provider Family Medicine
DX: Z12.2 Encounter for screening for malignant neoplasm of respiratory organs (principal); R91.8 Other nonspecific abnormal finding of lung field; F17.210 Nicotine dependence, cigarettes, uncomplicated
CPT/HCPCS: 71271

== ENCOUNTER 2024-10-09 13:22 | Outpatient (CLI) | payer MEDICARE, BC, SELFPAY ==
--- NOTE | 2024-10-09 13:40 | CRLHL7_ITS ---
For Patients: As a result of the Century Cures Act, medical imaging exams and procedure reports are released immediately into your electronic medical record. You may view this report before your referring provider. If you have questions, please contact your health care provider. INDICATION: BILATERAL SCREENING MAMMOGRAM, ASYMPTOMATIC 64 YEAR OLD FEMALE COMPARISON: 07/14/23, 03/24/19, 05/27/16 TECHNIQUE: CC and MLO views were obtained. These mammographic images have been obtained using full-field digital technique. These mammographic images were interpreted with the benefit of computer aided detection and tomosynthesis. BREAST COMPOSITION: There are scattered areas of fibroglandular density. FINDINGS: No suspicious findings. ASSESSMENT: BI-RADS 2 Benign RECOMMENDATION: Annual screening mammogram. A lay language report of this examination will be provided to the patient. Dictated by: Isai Martell MD @ 10/18/2024 09:41:29 (Electronically Signed)
== END 2024-10-09 13:23 | disposition home or self-care (01) ==
LOC: MAMMO 13:22
PROVIDERS: PCP Physician Assistant Medical; Visit Provider Physician Assistant Medical
DX: Z12.31 Encounter for screening mammogram for malignant neoplasm of breast (principal)
CPT/HCPCS: 77063; 77067

== ENCOUNTER 2024-12-14 12:01 | Outpatient (CLI) | payer MEDICARE, BC, SELFPAY | END 2024-12-14 12:02 | disposition home or self-care (01) | LOC: NFLDREF 12-19 16:03 | PROVIDERS: PCP Physician Assistant Medical; Referring Provider Physician Assistant Medical | DX: N30.01 Acute cystitis with hematuria (principal); B96.89 Other specified bacterial agents as the cause of diseases classified elsewhere | CPT/HCPCS: 87086 ==

== ENCOUNTER 2025-01-04 10:43 | Outpatient (CLI) | payer MEDICARE, BC, SELFPAY ==
--- NOTE | 2025-01-04 11:00 | CRLHL7_ITS ---
For Patients: As a result of the Century Cures Act, medical imaging exams and procedure reports are released immediately into your electronic medical record. You may view this report before your referring provider. If you have questions, please contact your health care provider. INDICATION: Follow-up surgery fusion. SI joint pain. COMPARISON: 19 March 2021. TECHNIQUE: Noncontrast images. FINDINGS: Paired pedicle richa and screw fixation in the visualized lumbosacral spine extending above the field of view. Hemilaminectomy changes. Some ghost track lucencies in the vertebral bodies show changes of removed prior hardware. Severe osteoarthritis of both sacroiliac joints with patchy sclerosis and shallow small subchondral cysts slightly more pronounced left than right. Small amount of vacuum air in both joints. No ankylosis. Anatomic alignment of the hips with mild osteoarthritis on the right. Minor arthrosis symphysis pubis. Anchors from a inguinal mesh hernia repair. IMPRESSION: Chronic moderately severe osteoarthritis sacroiliac joints. No complication seen associated with visualized lumbosacral hardware. Please note that all CT scans at this facility use dose modulation, iterative reconstruction, and/or weight-based dosing when appropriate to reduce radiation dose to as low as reasonably achievable. Dictated by Jewel Maki MD @ 01/05/2025 1:59:47 PM (Electronically Signed)
--- NOTE | 2025-01-04 11:30 | CRLHL7_ITS ---
For Patients: As a result of the Century Cures Act, medical imaging exams and procedure reports are released immediately into your electronic medical record. You may view this report before your referring provider. If you have questions, please contact your health care provider. INDICATION: EVAL SURGICAL HARDWARE AND VERTEBRAL FORAMEN. TECHNIQUE: CT lumbar spine without contrast. COMPARISON: Lumbar spine radiographs dated 05/03/2024. FINDINGS: Vertebrae: Redemonstrated postsurgical changes of L3-S1 posterior interbody fusion with disc spacers and left hemilaminectomies. Hardware appears intact without evident complication. Grade 1 retrolisthesis of L5 on S1. No fractures identified. Discs and facet joints: Redemonstrated mild intervertebral height loss of the la posta discs at L1-2 and L2-3 with moderate facet arthropathy at each level. At L5-S1, there is redemonstrated moderate to severe left lateral intervertebral disc height loss. At L2-3, there is fdvm-cl-ohndkzcp bilateral neural foraminal stenosis secondary to a disc bulge and bilateral facet arthropathy. At L3-4, there is mild right neural foraminal stenosis secondary to a disc bulge and facet arthropathy. Limited evaluation of the left neural foramen due to postsurgical changes. At L4-5, there is mild bilateral neural foraminal stenosis secondary to a disc bulge and facet arthropathy. At L5-S1, there is mild right and spby-sq-cfykpbia left neural foraminal stenosis secondary to disc height loss and facet arthropathy. Extraspinal findings: Paraspinous soft tissues are unremarkable. IMPRESSION: 1. Redemonstrated postsurgical changes of L3-S1 posterior interbody fusion with disc spacers and left hemilaminectomies. Hardware appears intact without evident complication. 2. No sign of acute injury. 3. Multilevel degenerative spondylosis with bony neural foraminal stenoses, most pronounced on the left at L5-S1 with ymsx-mc-irwxfpsv stenosis. These findings could be further evaluated with MRI. Please note that all CT scans at this facility use dose modulation, iterative reconstruction, and/or weight-based dosing when appropriate to reduce radiation dose to as low as reasonably achievable. Dictated by Carlo Seay MD @ 01/05/2025 1:21:01 PM (Electronically Signed)
== END 2025-01-04 10:44 | disposition home or self-care (01) ==
LOC: CT 10:47
PROVIDERS: PCP Physician Assistant Medical; Visit Provider Physician Assistant
DX: M53.3 Sacrococcygeal disorders, not elsewhere classified (principal); M47.897 Other spondylosis, lumbosacral region; M48.07 Spinal stenosis, lumbosacral region; M47.898 Other spondylosis, sacral and sacrococcygeal region; M54.16 Radiculopathy, lumbar region
CPT/HCPCS: 72131; 72192

== ENCOUNTER 2025-05-14 10:35 | Outpatient (CLI) | payer MEDICARE, BC, SELFPAY | END 2025-05-14 10:36 | disposition home or self-care (01) | LOC: NFLDREF 05-17 08:48 | PROVIDERS: PCP Physician Assistant Medical; Referring Provider Physician Assistant Medical; Visit Provider Physician Assistant Medical | DX: I10 Essential (primary) hypertension (principal); E78.2 Mixed hyperlipidemia | CPT/HCPCS: 80053; 80061; 84443 ==

== ENCOUNTER 2025-05-15 07:25 | Outpatient (CLI) | payer MEDICARE, BC, SELFPAY | END 2025-05-15 07:26 | disposition home or self-care (01) | LOC: INJ CL 07:26 | PROVIDERS: PCP Physician Assistant Medical; Visit Provider Family Medicine | DX: M53.3 Sacrococcygeal disorders, not elsewhere classified (principal); F41.9 Anxiety disorder, unspecified | CPT/HCPCS: 27096; J0702; J2250; J3010; Q9966 ==

== ENCOUNTER 2025-06-13 09:41 | Outpatient (CLI) | payer MEDICARE, BC, SELFPAY ==
--- NOTE | 2025-06-13 10:00 | CRLHL7_ITS ---
For Patients: As a result of the Century Cures Act, medical imaging exams and procedure reports are released immediately into your electronic medical record. You may view this report before your referring provider. If you have questions, please contact your health care provider. INDICATION: Lung cancer screening. History of smoking. High risk patient with greater than 20 pack-year smoking history. TECHNIQUE: Low-dose lung cancer screening non-contrast CT chest. Dose reduction techniques were used. COMPARISON: 06/05/2024 FINDINGS: NODULES: Benign calcified nodule within the right upper lobe is unchanged. Previously noted cluster of nodules in the right middle lobe are no longer present. LUNGS AND PLEURA: Emphysema with subpleural blebs in the right apex. MEDIASTINUM: Calcified mediastinal and right hilar lymph nodes representing sequela of granulomatous change. Visualized thyroid normal. CORONARY ARTERY CALCIFICATION: Moderate. LIMITED UPPER ABDOMEN: Multiple calcified splenic granulomas. Small benign right adrenal adenoma. MUSCULOSKELETAL: No fracture. IMPRESSION: Negative for lung cancer screening purposes. LUNG-RADS CATEGORY: 2: Benign. RADIOLOGIST RECOMMENDATION: Continue annual screening, if eligible, with low-dose CT chest in 12 months. Please note that all CT scans at this facility use dose modulation, iterative reconstruction, and/or weight-based dosing when appropriate to reduce radiation dose to as low as reasonably achievable. Dictated by Isai Martell MD @ 06/13/2025 11:40:56 AM (Electronically Signed)
== END 2025-06-13 09:42 | disposition home or self-care (01) ==
LOC: CT 09:42
PROVIDERS: PCP Physician Assistant Medical; Visit Provider Family Medicine
DX: Z12.2 Encounter for screening for malignant neoplasm of respiratory organs (principal); F17.210 Nicotine dependence, cigarettes, uncomplicated
CPT/HCPCS: 71271

== ENCOUNTER 2025-06-13 09:43 | Outpatient (CLI) | payer MEDICARE, BC, SELFPAY | END 2025-06-13 09:44 | disposition home or self-care (01) | LOC: RAD 09:44 | PROVIDERS: PCP Physician Assistant Medical; Visit Provider Physician Assistant Medical | DX: Z12.2 Encounter for screening for malignant neoplasm of respiratory organs (principal); F17.210 Nicotine dependence, cigarettes, uncomplicated; J43.9 Emphysema, unspecified; I25.10 Atherosclerotic heart disease of native coronary artery without angina pectoris; D73.89 Other diseases of spleen; D35.01 Benign neoplasm of right adrenal gland | CPT/HCPCS: 77080 ==

== ENCOUNTER 2025-06-19 10:14 | Outpatient (CLI) | payer MEDICARE, BC, SELFPAY ==
--- NOTE | 2025-06-19 10:30 | CRLHL7_ITS ---
For Patients: As a result of the Cures Act, medical imaging exams and procedure reports are released immediately into your electronic medical record. You may view this report before your referring provider. If you have questions, please contact your health care provider. Indication: Lumbar fusion. Technique: Lumbar spine radiographs: AP, lateral, coned-down lateral x2. Comparison: Lumbar spine radiographs dated 05/03/2024. Findings: No acute fracture. Intact appearing L3-S1 posterior instrumented fusion and interbody spacer hardware. Redemonstrated right upper quadrant surgical clips. Normal vertebral alignment and stature. Impression: Redemonstrated intact L3-S1 posterior instrumented fusion and interbody spacer hardware. Dictated by Jamal Almodovar MD @ 06/22/2025 3:21:26 PM (Electronically Signed)
== END 2025-06-19 10:15 | disposition home or self-care (01) ==
LOC: RAD 10:15
PROVIDERS: PCP Physician Assistant Medical; Visit Provider Physician Assistant Surgical
DX: Z98.1 Arthrodesis status (principal); Z47.89 Encounter for other orthopedic aftercare
CPT/HCPCS: 72100